=== PATIENT | male | born 1950 | race Two or more races ===

== ENCOUNTER 2021-10-11 12:28 | Inpatient (IN) | payer OTHER ==
[2021-10-11] MEDS ORDERED: SODIUM CHLORIDE 1,500 ML IV ONE (13:32)
[2021-10-11 13:45] LABS: VENOUS BASE EXCESS 12.1 mmol/L (-2-2); VENOUS O2 SATURATION 80.3 % (70-80); VENOUS PCO2 39.7 mmHg (38-52); VENOUS PH 7.566 (7.310-7.410)
[2021-10-11 13:49] LABS: HEMATOCRIT 26.6 % (35.4-49); HEMOGLOBIN 8.7 GM/dL (11.7-16.9); MCH 29.3 pg (25.7-33.7); MCHC 32.6 g/dl (32.0-35.9); MEAN CELL VOLUME 89.7 fl (80-96); MEAN PLT VOLUME 7.1 fl (7.5-11.1); PLATELET COUNT 287 10^3/uL (134-434); RBC 2.97 M/mm3 (4.00-5.60); RDW 17.9 % (11.9-15.9); WHITE BLOOD COUNT 11.3 K/mm3 (4.0-10.0)
[2021-10-11 14:06] LABS: ALBUMIN 1.7 g/dl (3.4-5.0); BLOOD UREA NITROGEN 82.1 mg/dL (7-18); CALCIUM 9.1 mg/dL (8.5-10.1)
[2021-10-11 14:09] LABS: CREATININE 4.3 mg/dL (0.55-1.3)
[2021-10-11 14:11] LABS: BILIRUBIN,TOTAL 0.4 mg/dL (0.2-1); TOT PROT 5.8 g/dl (6.4-8.2)
[2021-10-11 14:15] LABS: LACTIC ACID 4.1 mmol/L (0.4-2.0)
[2021-10-11 14:27] LABS: ANISOCYTOSIS 0; MACROCYTOSIS 0
[2021-10-11] MEDS ORDERED: RAPID SEQUENCE INTUBATION KIT NR ONE (16:29)
[2021-10-11] MEDS ORDERED: ACETAMINOPHEN INJECTION 100 ML IVPB ONE (17:11)
[2021-10-11] MEDS ORDERED: BUPIVACAINE HCL/PF 0.25% (2.5MG/ML) 10 ML VIAL ONE (17:47)
[2021-10-11] MEDS ORDERED: VANCOMYCIN 1,000 MG in DEXTROSE 5%-WATER - 250 ML IVPB ONE (17:57)
[2021-10-11] MEDS ORDERED: PIPERACILLIN/TAZOB 2.25 GM 2.25 GM in DEXTROSE 5%-WATER - 50 ML IVPB ONE ×2 (17:58→21:09)
[2021-10-11] MEDS ORDERED: PIPERACILLIN/TAZOB 2.25 GM 2.25 GM/50 ML BAG IVPB ONE (18:05)
[2021-10-11] MEDS ORDERED: VANCOMYCIN/WATER FOR INJ (PEG) 1,000 MG/200 ML BAG IVPB ONE (18:06)
[2021-10-11 18:26] LABS: PH,URINE 7.5 (5.0-8.0); URINE APPEARANCE CLEAR; URINE BILIRUBIN NEGATIVE (NEGATIVE); URINE COLOR YELLOW; URINE GLUCOSE (UA) 1+ (NEGATIVE); URINE KETONE NEGATIVE (NEGATIVE); URINE LEUK ESTERASE 1+ (NEGATIVE); URINE NITRITE NEGATIVE (NEGATIVE); URINE PROTEIN 3+ (NEGATIVE); URINE UROBILINOGEN 0.2 mg/dL (0.2-1.0)
[2021-10-11] MEDS ORDERED: ROCURONIUM BROMIDE 50 MG/5 ML SYRINGE ONE (18:29)
[2021-10-11] MEDS ORDERED: ACETAMINOPHEN 1000 MG/100 ML BAG IVPB ONE (19:48)
[2021-10-11] MEDS ORDERED: ESMOLOL HCL 100,000 MCG/10 ML VIAL ONE (20:27)
[2021-10-11] MEDS ORDERED: SODIUM CHLORIDE 1,000 ML IV SCH (21:15)
[2021-10-11] MEDS ORDERED: PIPERACILLIN/TAZOBACTAM 2.25 GM VIAL IVPB ONE (21:41)
[2021-10-11] MEDS ORDERED: DEXTROSE 5%-WATER - 50 ML IVPB ONE (21:42)
[2021-10-11] MEDS ORDERED: CHLORHEXIDINE GLUCONATE 4% CLEANSER FOR DECOLONIZATION TP SCH (22:00)
[2021-10-11] MEDS ORDERED: MUPIROCIN 2% TOPICAL OINTMENT FOR DECOLONIZATION NS SCH (22:00)
[2021-10-11 22:31] LABS: PHOSPHOROUS 1.7 mg/dL (2.5-4.9)
[2021-10-11] MEDS: MIDAZOLAM IN 0.9 % SOD.CHLORID 100 MG/100 ML PLAST..BAG IVPB SCH (22:56)
[2021-10-11] MEDS: MUPIROCIN 2% TOPICAL OINTMENT FOR DECOLONIZATION NS SCH (22:57)
[2021-10-11] MEDS: CHLORHEXIDINE GLUCONATE 4% CLEANSER FOR DECOLONIZATION TP SCH (22:57)
[2021-10-11] MEDS: ACETAMINOPHEN 1000 MG/100 ML BAG IVPB SCH (22:58)
[2021-10-11] MEDS: PANTOPRAZOLE SODIUM 40 MG VIAL IVPUSH SCH (22:58)
[2021-10-11 23:48] LABS: BLOOD UREA NITROGEN 89.3 mg/dL (7-18); CALCIUM 8.9 mg/dL (8.5-10.1)
[2021-10-11 23:49] LABS: CREATININE 4.4 mg/dL (0.55-1.3)
[2021-10-11 23:57] LABS: LACTIC ACID 4.5 mmol/L (0.4-2.0)
[2021-10-12] MEDS: SODIUM CHLORIDE 1,000 ML IV SCH (00:18)
[2021-10-12] MEDS: ACETAMINOPHEN 1000 MG/100 ML BAG IVPB SCH ×3 (04:56→17:09)
[2021-10-12 07:54] LABS: LACTIC ACID 4.6 mmol/L (0.4-2.0)
[2021-10-12 07:59] LABS: CALCIUM 8.9 mg/dL (8.5-10.1)
[2021-10-12 08:00] LABS: BLOOD UREA NITROGEN 100.8 mg/dL (7-18); MAGNESIUM 2.5 mg/dL (1.8-2.4)
[2021-10-12 08:03] LABS: CREATININE 4.5 mg/dL (0.55-1.3); PHOSPHOROUS 2.1 mg/dL (2.5-4.9)
[2021-10-12 08:24] LABS: BASO % 0.1 % (0-2.0); HEMATOCRIT 24.1 % (35.4-49); LYMPH % 13.1 % (8-40); MCH 29.6 pg (25.7-33.7); MCHC 33.3 g/dl (32.0-35.9); MEAN PLT VOLUME 7.6 fl (7.5-11.1); MONO % 1.2 % (3.8-10.2); NEUT % 85.6 % (42.8-82.8); PLATELET COUNT 196 10^3/uL (134-434); RBC 2.71 M/mm3 (4.00-5.60); RDW 18.1 % (11.9-15.9); WHITE BLOOD COUNT 5.6 K/mm3 (4.0-10.0)
[2021-10-12] MEDS ORDERED: SODIUM CHLORIDE 250 ML IV PRN (09:40)
[2021-10-12] MEDS ORDERED: HEPARIN NA (PORCINE) 5,000 UNITS/ML 1ML VIAL SQ SCH (10:00)
[2021-10-12] MEDS: KCL 10 MEQ IVPB 10 MEQ/100 ML INFUS.BAG IVPB SCH ×2 (12:48→14:31)
[2021-10-12] MEDS: MUPIROCIN 2% TOPICAL OINTMENT FOR DECOLONIZATION NS SCH ×2 (12:48→21:33)
[2021-10-12] MEDS: PANTOPRAZOLE SODIUM 40 MG VIAL IVPUSH SCH (12:49)
[2021-10-12 12:59] LABS: LACTIC ACID 3.3 mmol/L (0.4-2.0)
[2021-10-12] MEDS ORDERED: EPOETIN ALFA-EPBX 4,000 UNIT/ML VIAL IVPUSH ONE (14:00)
[2021-10-12] MEDS ORDERED: REMDESIVIR 200 MG in SODIUM CHLORIDE 250 ML IVPB ONE (14:26)
[2021-10-12] MEDS ORDERED: DEXTROSE 5%-WATER - 50 ML IVPB ONE (15:30)
[2021-10-12] MEDS ORDERED: PIPERACILLIN/TAZOBACTAM 2.25 GM VIAL IVPB ONE ×2 (15:30→17:05)
[2021-10-12] MEDS: PIPERACILLIN/TAZOB 2.25 GM 2.25 GM in DEXTROSE 5%-WATER - 50 ML IVPB SCH ×2 (16:01→17:10)
[2021-10-12] MEDS: DEXAMETHASONE SOD PHOSPHATE 10 MG/1 ML VIAL IVPUSH SCH (16:01)
[2021-10-12] MEDS ORDERED: VANCOMYCIN/WATER FOR INJ (PEG) 1,000 MG/200 ML BAG IVPB ONE (17:24)
[2021-10-12] MEDS: MIDAZOLAM IN 0.9 % SOD.CHLORID 100 MG/100 ML PLAST..BAG IVPB SCH (21:00)
[2021-10-12] MEDS: HEPARIN NA (PORCINE) 5,000 UNITS/ML 1ML VIAL SQ SCH (21:34)
[2021-10-12] MEDS: CHLORHEXIDINE GLUCONATE 4% CLEANSER FOR DECOLONIZATION TP SCH (21:34)
[2021-10-13] MEDS: SODIUM CHLORIDE 1,000 ML IV SCH (01:00)
[2021-10-13] MEDS ORDERED: PIPERACILLIN/TAZOBACTAM 2.25 GM VIAL IVPB ONE ×3 (01:02→16:18)
[2021-10-13] MEDS ORDERED: DEXTROSE 5%-WATER - 50 ML IVPB ONE ×3 (01:02→16:18)
[2021-10-13] MEDS: PIPERACILLIN/TAZOB 2.25 GM 2.25 GM in DEXTROSE 5%-WATER - 50 ML IVPB SCH ×3 (02:57→17:41)
[2021-10-13] MEDS: HEPARIN NA (PORCINE) 5,000 UNITS/ML 1ML VIAL SQ SCH ×3 (06:18→21:31)
[2021-10-13 07:23] LABS: HEMATOCRIT 27.2 % (35.4-49); HEMOGLOBIN 9.1 GM/dL (11.7-16.9); MCHC 33.4 g/dl (32.0-35.9); MEAN PLT VOLUME 7.9 fl (7.5-11.1); PLATELET COUNT 220 10^3/uL (134-434); RBC 3.02 M/mm3 (4.00-5.60); RDW 17.9 % (11.9-15.9)
[2021-10-13 07:41] LABS: CALCIUM 8.9 mg/dL (8.5-10.1)
[2021-10-13 07:42] LABS: ALBUMIN 1.8 g/dl (3.4-5.0); MAGNESIUM 2.3 mg/dL (1.8-2.4)
[2021-10-13 07:45] LABS: CREATININE 2.5 mg/dL (0.55-1.3); PHOSPHOROUS 2.7 mg/dL (2.5-4.9)
[2021-10-13 07:46] LABS: BILIRUBIN,TOTAL 0.6 mg/dL (0.2-1); TOT PROT 5.5 g/dl (6.4-8.2)
[2021-10-13 07:51] LABS: BLOOD UREA NITROGEN 52.2 mg/dL (7-18)
[2021-10-13 09:28] LABS: ANISOCYTOSIS 1+; MACROCYTOSIS 1+
[2021-10-13] MEDS: PANTOPRAZOLE SODIUM 40 MG VIAL IVPUSH SCH (10:46)
[2021-10-13] MEDS: DEXAMETHASONE SOD PHOSPHATE 10 MG/1 ML VIAL IVPUSH SCH (10:46)
[2021-10-13] MEDS ORDERED: AMINO ACIDS 4.25%/D5W 1,000 ML IV SCH (12:00)
[2021-10-13] MEDS: MUPIROCIN 2% TOPICAL OINTMENT FOR DECOLONIZATION NS SCH ×2 (12:51→21:31)
[2021-10-13] MEDS: COLLAGENASE CLOSTRIDIUM HIST. 30 GRAMS TUBE TP SCH (17:13)
[2021-10-13] MEDS ORDERED: SODIUM CHLORIDE 250 ML IV PRN (19:31)
[2021-10-13] MEDS: CHLORHEXIDINE GLUCONATE 4% CLEANSER FOR DECOLONIZATION TP SCH (21:31)
[2021-10-14] MEDS ORDERED: DEXTROSE 5%-WATER - 50 ML IVPB ONE ×3 (01:34→16:34)
[2021-10-14] MEDS ORDERED: PIPERACILLIN/TAZOBACTAM 2.25 GM VIAL IVPB ONE ×3 (01:34→16:34)
[2021-10-14] MEDS: PIPERACILLIN/TAZOB 2.25 GM 2.25 GM in DEXTROSE 5%-WATER - 50 ML IVPB SCH ×3 (01:35→17:33)
[2021-10-14] MEDS: HEPARIN NA (PORCINE) 5,000 UNITS/ML 1ML VIAL SQ SCH ×3 (06:15→21:17)
[2021-10-14 08:50] LABS: HEMATOCRIT 23.8 % (35.4-49); HEMOGLOBIN 7.7 GM/dL (11.7-16.9); MCH 28.9 pg (25.7-33.7); MCHC 32.3 g/dl (32.0-35.9); MEAN CELL VOLUME 89.3 fl (80-96); MEAN PLT VOLUME 8.1 fl (7.5-11.1); PLATELET COUNT 248 10^3/uL (134-434); RBC 2.67 M/mm3 (4.00-5.60); RDW 18.5 % (11.9-15.9); WHITE BLOOD COUNT 16.5 K/mm3 (4.0-10.0)
[2021-10-14 09:18] LABS: CALCIUM 8.6 mg/dL (8.5-10.1)
[2021-10-14 09:19] LABS: ALBUMIN 1.7 g/dl (3.4-5.0); MAGNESIUM 2.4 mg/dL (1.8-2.4)
[2021-10-14 09:22] LABS: CREATININE 3.2 mg/dL (0.55-1.3); PHOSPHOROUS 3.3 mg/dL (2.5-4.9)
[2021-10-14 09:23] LABS: BILIRUBIN,TOTAL 0.4 mg/dL (0.2-1); TOT PROT 5.1 g/dl (6.4-8.2)
[2021-10-14] MEDS ORDERED: CASPOFUNGIN ACETATE 70 MG in SODIUM CHLORIDE 250 ML IVPB ONE (09:29)
[2021-10-14 09:34] LABS: BLOOD UREA NITROGEN 78.6 mg/dL (7-18)
[2021-10-14] MEDS: COLLAGENASE CLOSTRIDIUM HIST. 30 GRAMS TUBE TP SCH (12:08)
[2021-10-14] MEDS: MUPIROCIN 2% TOPICAL OINTMENT FOR DECOLONIZATION NS SCH ×2 (12:09→21:18)
[2021-10-14] MEDS: DEXAMETHASONE SOD PHOSPHATE 10 MG/1 ML VIAL IVPUSH SCH (12:10)
[2021-10-14] MEDS: PANTOPRAZOLE SODIUM 40 MG VIAL IVPUSH SCH (12:10)
[2021-10-14 12:28] LABS: ANISOCYTOSIS 2+; MACROCYTOSIS 2+; OVALOCYTE 2+; TARGET CELLS 2+
[2021-10-14] MEDS ORDERED: REMDESIVIR 100 MG in SODIUM CHLORIDE 250 ML IVPB SCH (15:00)
[2021-10-14] MEDS: PROPOFOL 1,000,000 MCG/100 ML VIAL IVPB SCH (16:00)
[2021-10-14] MEDS: REMDESIVIR 100 MG in SODIUM CHLORIDE 250 ML IVPB SCH (17:32)
[2021-10-14] MEDS: CHLORHEXIDINE GLUCONATE 4% CLEANSER FOR DECOLONIZATION TP SCH (21:18)
[2021-10-14] MEDS ORDERED: FAT EMULSION/OLIVE/SOY (CLINOLIPID) 250 ML EMULSION IV SCH (22:00)
[2021-10-15] MEDS ORDERED: PIPERACILLIN/TAZOBACTAM 2.25 GM VIAL IVPB ONE ×3 (00:01→17:36)
[2021-10-15] MEDS ORDERED: DEXTROSE 5%-WATER - 50 ML IVPB ONE ×3 (00:01→17:36)
[2021-10-15] MEDS: PIPERACILLIN/TAZOB 2.25 GM 2.25 GM in DEXTROSE 5%-WATER - 50 ML IVPB SCH ×3 (01:27→17:40)
[2021-10-15] MEDS: HEPARIN NA (PORCINE) 5,000 UNITS/ML 1ML VIAL SQ SCH ×3 (07:04→21:04)
[2021-10-15 07:54] LABS: HEMATOCRIT 21.2 % (35.4-49); MCH 28.9 pg (25.7-33.7); MCHC 32.9 g/dl (32.0-35.9); MEAN CELL VOLUME 87.9 fl (80-96); MEAN PLT VOLUME 7.6 fl (7.5-11.1); PLATELET COUNT 194 10^3/uL (134-434); RBC 2.41 M/mm3 (4.00-5.60); RDW 17.8 % (11.9-15.9); WHITE BLOOD COUNT 18.2 K/mm3 (4.0-10.0)
[2021-10-15 08:06] LABS: CALCIUM 8.7 mg/dL (8.5-10.1)
[2021-10-15 08:07] LABS: ALBUMIN 1.6 g/dl (3.4-5.0); MAGNESIUM 2.1 mg/dL (1.8-2.4)
[2021-10-15 08:10] LABS: CREATININE 2.2 mg/dL (0.55-1.3); PHOSPHOROUS 2.4 mg/dL (2.5-4.9)
[2021-10-15 08:11] LABS: TOT PROT 4.8 g/dl (6.4-8.2)
[2021-10-15 08:12] LABS: BILIRUBIN,TOTAL 0.5 mg/dL (0.2-1)
[2021-10-15 08:16] LABS: BLOOD UREA NITROGEN 52.6 mg/dL (7-18)
[2021-10-15 08:56] LABS: ANISOCYTOSIS 0; MACROCYTOSIS 0
[2021-10-15] MEDS: PANTOPRAZOLE SODIUM 40 MG VIAL IVPUSH SCH (09:53)
[2021-10-15] MEDS: MUPIROCIN 2% TOPICAL OINTMENT FOR DECOLONIZATION NS SCH ×2 (09:55→21:04)
[2021-10-15] MEDS: COLLAGENASE CLOSTRIDIUM HIST. 30 GRAMS TUBE TP SCH (09:55)
[2021-10-15] MEDS: CASPOFUNGIN ACETATE 50 MG in SODIUM CHLORIDE 250 ML IVPB SCH (13:50)
[2021-10-15] MEDS: REMDESIVIR 100 MG in SODIUM CHLORIDE 250 ML IVPB SCH (17:41)
[2021-10-15] MEDS: METOPROLOL TARTRATE 5 MG/5 ML VIAL IVPUSH PRN (17:46)
[2021-10-15] MEDS ORDERED: POTASSIUM CHLORIDE ORAL LIQUID 20 MEQ/15 ML PO ONE (20:34)
[2021-10-15] MEDS: KCL 10 MEQ IVPB 10 MEQ/100 ML INFUS.BAG IVPB SCH ×3 (21:01→22:30)
[2021-10-15] MEDS: CHLORHEXIDINE GLUCONATE 4% CLEANSER FOR DECOLONIZATION TP SCH (21:04)
[2021-10-16] MEDS ORDERED: DEXTROSE 5%-WATER - 50 ML IVPB ONE ×3 (00:08→17:54)
[2021-10-16] MEDS ORDERED: PIPERACILLIN/TAZOBACTAM 2.25 GM VIAL IVPB ONE ×3 (00:08→17:54)
[2021-10-16] MEDS: PIPERACILLIN/TAZOB 2.25 GM 2.25 GM in DEXTROSE 5%-WATER - 50 ML IVPB SCH ×3 (01:19→19:27)
[2021-10-16] MEDS: PROPOFOL 1,000,000 MCG/100 ML VIAL IVPB SCH (03:00)
[2021-10-16] MEDS: HEPARIN NA (PORCINE) 5,000 UNITS/ML 1ML VIAL SQ SCH ×3 (06:00→21:45)
[2021-10-16 08:03] LABS: HEMATOCRIT 20.1 % (35.4-49); MCH 29.3 pg (25.7-33.7); MCHC 33.1 g/dl (32.0-35.9); MEAN CELL VOLUME 88.5 fl (80-96); MEAN PLT VOLUME 7.8 fl (7.5-11.1); PLATELET COUNT 165 10^3/uL (134-434); RBC 2.27 M/mm3 (4.00-5.60); RDW 17.8 % (11.9-15.9); WHITE BLOOD COUNT 13.8 K/mm3 (4.0-10.0)
[2021-10-16 08:22] LABS: ALBUMIN 1.4 g/dl (3.4-5.0); BLOOD UREA NITROGEN 63.7 mg/dL (7-18); CALCIUM 8.2 mg/dL (8.5-10.1)
[2021-10-16 08:23] LABS: MAGNESIUM 1.9 mg/dL (1.8-2.4)
[2021-10-16 08:25] LABS: PHOSPHOROUS 2.2 mg/dL (2.5-4.9)
[2021-10-16 08:26] LABS: BILIRUBIN,TOTAL 0.4 mg/dL (0.2-1); TOT PROT 4.6 g/dl (6.4-8.2)
[2021-10-16 08:38] LABS: HEMOGLOBIN 6.6 GM/dL (11.7-16.9)
[2021-10-16] MEDS: PANTOPRAZOLE SODIUM 40 MG VIAL IVPUSH SCH (09:27)
[2021-10-16] MEDS: COLLAGENASE CLOSTRIDIUM HIST. 30 GRAMS TUBE TP SCH (09:28)
[2021-10-16] MEDS: MUPIROCIN 2% TOPICAL OINTMENT FOR DECOLONIZATION NS SCH (09:28)
[2021-10-16 10:57] LABS: ANISOCYTOSIS 2+; MACROCYTOSIS 0
[2021-10-16] MEDS: CASPOFUNGIN ACETATE 50 MG in SODIUM CHLORIDE 250 ML IVPB SCH (14:35)
[2021-10-16] MEDS: METOPROLOL TARTRATE 5 MG/5 ML VIAL IVPUSH PRN (16:04)
[2021-10-16] MEDS: REMDESIVIR 100 MG in SODIUM CHLORIDE 250 ML IVPB SCH (19:26)
[2021-10-16] MEDS: CHLORHEXIDINE GLUCONATE 4% CLEANSER FOR DECOLONIZATION TP SCH (21:43)
[2021-10-17] MEDS ORDERED: DEXTROSE 5%-WATER - 50 ML IVPB ONE ×3 (01:04→17:04)
[2021-10-17] MEDS ORDERED: PIPERACILLIN/TAZOBACTAM 2.25 GM VIAL IVPB ONE ×3 (01:04→17:03)
[2021-10-17] MEDS: PIPERACILLIN/TAZOB 2.25 GM 2.25 GM in DEXTROSE 5%-WATER - 50 ML IVPB SCH ×3 (01:10→17:59)
[2021-10-17] MEDS: HEPARIN NA (PORCINE) 5,000 UNITS/ML 1ML VIAL SQ SCH ×3 (05:57→22:16)
[2021-10-17 09:19] LABS: HEMATOCRIT 35.4 % (35.4-49); HEMOGLOBIN 12.2 GM/dL (11.7-16.9); MCH 29.2 pg (25.7-33.7); MCHC 34.3 g/dl (32.0-35.9); MEAN CELL VOLUME 85.1 fl (80-96); MEAN PLT VOLUME 7.8 fl (7.5-11.1); PLATELET COUNT 159 10^3/uL (134-434); RBC 4.16 M/mm3 (4.00-5.60); RDW 16.2 % (11.9-15.9); WHITE BLOOD COUNT 16.7 K/mm3 (4.0-10.0)
[2021-10-17 10:01] LABS: ALBUMIN 1.6 g/dl (3.4-5.0)
[2021-10-17 10:03] LABS: CALCIUM 9.3 mg/dL (8.5-10.1)
[2021-10-17 10:07] LABS: CREATININE 3.6 mg/dL (0.55-1.3)
[2021-10-17 10:09] LABS: BILIRUBIN,TOTAL 0.5 mg/dL (0.2-1); TOT PROT 5.1 g/dl (6.4-8.2)
[2021-10-17] MEDS: PANTOPRAZOLE SODIUM 40 MG VIAL IVPUSH SCH (10:45)
[2021-10-17] MEDS: COLLAGENASE CLOSTRIDIUM HIST. 30 GRAMS TUBE TP SCH (10:46)
[2021-10-17] MEDS: PROPOFOL 1,000,000 MCG/100 ML VIAL IVPB SCH (13:50)
[2021-10-17] MEDS: CASPOFUNGIN ACETATE 50 MG in SODIUM CHLORIDE 250 ML IVPB SCH (13:52)
[2021-10-17] MEDS: REMDESIVIR 100 MG in SODIUM CHLORIDE 250 ML IVPB SCH (17:59)
[2021-10-17] MEDS: CHLORHEXIDINE GLUCONATE 4% CLEANSER FOR DECOLONIZATION TP SCH (22:16)
[2021-10-18] MEDS ORDERED: DEXTROSE 5%-WATER - 50 ML IVPB ONE ×3 (02:14→18:00)
[2021-10-18] MEDS ORDERED: PIPERACILLIN/TAZOBACTAM 2.25 GM VIAL IVPB ONE ×3 (02:14→18:00)
[2021-10-18] MEDS: PIPERACILLIN/TAZOB 2.25 GM 2.25 GM in DEXTROSE 5%-WATER - 50 ML IVPB SCH ×3 (02:39→18:05)
[2021-10-18] MEDS: METOPROLOL TARTRATE 5 MG/5 ML VIAL IVPUSH PRN ×2 (02:39→16:30)
[2021-10-18] MEDS: HEPARIN NA (PORCINE) 5,000 UNITS/ML 1ML VIAL SQ SCH ×3 (06:30→21:06)
[2021-10-18 09:16] LABS: HEMATOCRIT 34.1 % (35.4-49); HEMOGLOBIN 11.5 GM/dL (11.7-16.9); MCHC 33.8 g/dl (32.0-35.9); MEAN CELL VOLUME 85.8 fl (80-96); MEAN PLT VOLUME 8.4 fl (7.5-11.1); PLATELET COUNT 172 10^3/uL (134-434); RBC 3.97 M/mm3 (4.00-5.60); RDW 16.2 % (11.9-15.9)
[2021-10-18] MEDS: COLLAGENASE CLOSTRIDIUM HIST. 30 GRAMS TUBE TP SCH (09:34)
[2021-10-18] MEDS: PANTOPRAZOLE SODIUM 40 MG VIAL IVPUSH SCH (09:34)
[2021-10-18 09:36] LABS: CALCIUM 9.4 mg/dL (8.5-10.1)
[2021-10-18 09:37] LABS: ALBUMIN 1.5 g/dl (3.4-5.0); BLOOD UREA NITROGEN 78.1 mg/dL (7-18); MAGNESIUM 2.2 mg/dL (1.8-2.4)
[2021-10-18 09:40] LABS: CREATININE 4.2 mg/dL (0.55-1.3); PHOSPHOROUS 4.4 mg/dL (2.5-4.9)
[2021-10-18 09:41] LABS: BILIRUBIN,TOTAL 0.4 mg/dL (0.2-1)
[2021-10-18 09:53] LABS: ANISOCYTOSIS 0; MACROCYTOSIS 0
[2021-10-18] MEDS: CASPOFUNGIN ACETATE 50 MG in SODIUM CHLORIDE 250 ML IVPB SCH (14:45)
[2021-10-18] MEDS: CHLORHEXIDINE GLUCONATE 4% CLEANSER FOR DECOLONIZATION TP SCH (21:07)
[2021-10-19] MEDS ORDERED: PIPERACILLIN/TAZOBACTAM 2.25 GM VIAL IVPB ONE ×2 (01:40→10:29)
[2021-10-19] MEDS ORDERED: DEXTROSE 5%-WATER - 50 ML IVPB ONE ×2 (01:41→10:29)
[2021-10-19] MEDS: PIPERACILLIN/TAZOB 2.25 GM 2.25 GM in DEXTROSE 5%-WATER - 50 ML IVPB SCH ×3 (01:55→18:25)
[2021-10-19] MEDS: METOPROLOL TARTRATE 5 MG/5 ML VIAL IVPUSH PRN (04:05)
[2021-10-19] MEDS: HEPARIN NA (PORCINE) 5,000 UNITS/ML 1ML VIAL SQ SCH ×3 (06:38→21:33)
[2021-10-19] MEDS: PANTOPRAZOLE SODIUM 40 MG VIAL IVPUSH SCH (10:24)
[2021-10-19] MEDS: COLLAGENASE CLOSTRIDIUM HIST. 30 GRAMS TUBE TP SCH (10:24)
[2021-10-19 11:34] LABS: HEMATOCRIT 34.9 % (35.4-49); HEMOGLOBIN 11.5 GM/dL (11.7-16.9); MCH 28.6 pg (25.7-33.7); MCHC 32.8 g/dl (32.0-35.9); MEAN CELL VOLUME 87.1 fl (80-96); MEAN PLT VOLUME 8.7 fl (7.5-11.1); PLATELET COUNT 177 10^3/uL (134-434); RBC 4.01 M/mm3 (4.00-5.60); WHITE BLOOD COUNT 23.8 K/mm3 (4.0-10.0)
[2021-10-19 12:00] LABS: CALCIUM 9.3 mg/dL (8.5-10.1)
[2021-10-19 12:01] LABS: ALBUMIN 1.5 g/dl (3.4-5.0); BLOOD UREA NITROGEN 94.3 mg/dL (7-18); MAGNESIUM 2.3 mg/dL (1.8-2.4)
[2021-10-19 12:04] LABS: CREATININE 4.5 mg/dL (0.55-1.3); PHOSPHOROUS 4.9 mg/dL (2.5-4.9)
[2021-10-19 12:06] LABS: BILIRUBIN,TOTAL 0.5 mg/dL (0.2-1); TOT PROT 5.2 g/dl (6.4-8.2)
[2021-10-19 12:13] LABS: ANISOCYTOSIS 0; HELMET CELLS 0; HOWELL-JOLLY BODIES 0; MACROCYTOSIS 0; OVALOCYTE 0; ROULEAU 0; SICKELED CELLS 0; TARGET CELLS 0; TEAR DROP CELLS 0; TOXIC GRANULATION 0
[2021-10-19] MEDS: CASPOFUNGIN ACETATE 50 MG in SODIUM CHLORIDE 250 ML IVPB SCH (14:00)
[2021-10-19] MEDS ORDERED: ALBUTEROL SO4 0.083% IH SOL 2.5 MG/3 ML VIAL.NEB. NEB PRN (14:35)
[2021-10-19] MEDS ORDERED: ACETYLCYSTEINE 20% 200MG/ML 30 ML VIAL *FOR ORAL / INH USE ONLY NEB SCH (16:00)
[2021-10-19] MEDS ORDERED: SODIUM CHLORIDE 250 ML IV PRN (16:42)
[2021-10-19] MEDS ORDERED: EPOETIN ALFA-EPBX 4,000 UNIT/ML VIAL SQ ONE (16:45)
[2021-10-19] MEDS ORDERED: EPOETIN ALFA-EPBX 4,000 UNIT/ML VIAL IVPUSH ONE (16:45)
[2021-10-19] MEDS ORDERED: METOPROLOL TARTRATE 5 MG/5 ML VIAL IVPUSH PRN (20:16)
[2021-10-19] MEDS ORDERED: CHLORHEXIDINE GLUCONATE 4% CLEANSER FOR DECOLONIZATION TP SCH (22:00)
[2021-10-19] MEDS ORDERED: METOPROLOL TARTRATE 5 MG/5 ML VIAL IVPUSH ONE (23:15)
[2021-10-20] MEDS: PIPERACILLIN/TAZOB 2.25 GM 2.25 GM in DEXTROSE 5%-WATER - 50 ML IVPB SCH ×3 (01:07→17:45)
[2021-10-20] MEDS: HEPARIN NA (PORCINE) 5,000 UNITS/ML 1ML VIAL SQ SCH ×3 (05:50→21:37)
[2021-10-20 07:51] LABS: HEMATOCRIT 32.2 % (35.4-49); HEMOGLOBIN 10.9 GM/dL (11.7-16.9); MCH 29.2 pg (25.7-33.7); MEAN CELL VOLUME 85.8 fl (80-96); MEAN PLT VOLUME 8.4 fl (7.5-11.1); PLATELET COUNT 157 10^3/uL (134-434); RBC 3.75 M/mm3 (4.00-5.60); RDW 16.9 % (11.9-15.9); WHITE BLOOD COUNT 24.9 K/mm3 (4.0-10.0)
[2021-10-20 07:52] LABS: ADD RBC MORPHOLOGY NO
[2021-10-20 08:09] LABS: BLOOD UREA NITROGEN 93.8 mg/dL (7-18)
[2021-10-20 08:10] LABS: ALBUMIN 1.5 g/dl (3.4-5.0); CALCIUM 8.8 mg/dL (8.5-10.1); MAGNESIUM 2.1 mg/dL (1.8-2.4)
[2021-10-20 08:12] LABS: CREATININE 4.4 mg/dL (0.55-1.3); PHOSPHOROUS 4.6 mg/dL (2.5-4.9)
[2021-10-20 08:14] LABS: BILIRUBIN,TOTAL 0.6 mg/dL (0.2-1); TOT PROT 5.3 g/dl (6.4-8.2)
[2021-10-20] MEDS ORDERED: LABETALOL HCL 5 MG/1 ML (100MG/20 ML VIAL) IVPUSH ONE (09:10)
[2021-10-20 09:15] LABS: ANISOCYTOSIS 0; HELMET CELLS 0; HOWELL-JOLLY BODIES 0; MACROCYTOSIS 0; OVALOCYTE 0; ROULEAU 0; SICKELED CELLS 0; TARGET CELLS 0; TEAR DROP CELLS 0; TOXIC GRANULATION 0
[2021-10-20] MEDS ORDERED: amLODIPine BESYLATE 5 MG TABLET (FP) PO SCH (10:00)
[2021-10-20] MEDS ORDERED: LISINOPRIL 5 MG TABLET PO SCH (10:00)
[2021-10-20] MEDS ORDERED: PANTOPRAZOLE SODIUM 40 MG VIAL IVPUSH SCH (10:00)
[2021-10-20] MEDS ORDERED: COLLAGENASE CLOSTRIDIUM HIST. 30 GRAMS TUBE TP SCH (10:00)
[2021-10-20] MEDS ORDERED: POTASSIUM CHLORIDE ORAL LIQUID 20 MEQ/15 ML PO ONE (10:19)
[2021-10-20] MEDS ORDERED: CASPOFUNGIN ACETATE 50 MG in SODIUM CHLORIDE 250 ML IVPB SCH (13:30)
[2021-10-20] MEDS ORDERED: SODIUM CHLORIDE 250 ML IV PRN (14:39)
[2021-10-20] MEDS ORDERED: EPOETIN ALFA-EPBX 4,000 UNIT/ML VIAL SQ ONE ×2 (14:39→17:55)
[2021-10-20] MEDS ORDERED: FENTANYL NS IVPB 500 MCG/100 ML BAG IVPB ONE ×2 (16:35→22:06)
[2021-10-20] MEDS ORDERED: FENTANYL IVPB 500 MCG/100 ML BAG IVPB SCH (16:45)
[2021-10-20] MEDS: FENTANYL IVPB 500 MCG/100 ML BAG IVPB SCH ×2 (17:55→22:00)
[2021-10-20] MEDS ORDERED: PROPOFOL 200 MG/20 ML VIAL IVPUSH ONE (19:03)
[2021-10-20] MEDS ORDERED: PROPOFOL 1,000,000 MCG/100 ML VIAL IVPB SCH (19:15)
[2021-10-20] MEDS: MUPIROCIN 2% TOPICAL OINTMENT FOR DECOLONIZATION NS SCH (21:35)
[2021-10-20] MEDS: CHLORHEXIDINE GLUCONATE 4% CLEANSER FOR DECOLONIZATION TP SCH (21:36)
[2021-10-20] MEDS ORDERED: CHLORHEXIDINE GLUCONATE 4% CLEANSER FOR DECOLONIZATION TP SCH (22:00)
[2021-10-21] MEDS: PIPERACILLIN/TAZOB 2.25 GM 2.25 GM in DEXTROSE 5%-WATER - 50 ML IVPB SCH ×3 (01:17→17:38)
[2021-10-21] MEDS ORDERED: FENTANYL NS IVPB 500 MCG/100 ML BAG IVPB ONE (04:56)
[2021-10-21] MEDS: HEPARIN NA (PORCINE) 5,000 UNITS/ML 1ML VIAL SQ SCH ×3 (06:00→21:30)
[2021-10-21 07:58] LABS: HEMATOCRIT 28.3 % (35.4-49); HEMOGLOBIN 9.5 GM/dL (11.7-16.9); MCH 28.8 pg (25.7-33.7); MCHC 33.6 g/dl (32.0-35.9); MEAN CELL VOLUME 85.6 fl (80-96); MEAN PLT VOLUME 8.1 fl (7.5-11.1); PLATELET COUNT 108 10^3/uL (134-434); RBC 3.31 M/mm3 (4.00-5.60); RDW 17.2 % (11.9-15.9); WHITE BLOOD COUNT 25.7 K/mm3 (4.0-10.0)
[2021-10-21 08:24] LABS: BLOOD UREA NITROGEN 93.4 mg/dL (7-18)
[2021-10-21 08:28] LABS: CREATININE 4.6 mg/dL (0.55-1.3); PHOSPHOROUS 4.6 mg/dL (2.5-4.9)
[2021-10-21 08:29] LABS: BILIRUBIN,TOTAL 0.5 mg/dL (0.2-1); CALCIUM 8.9 mg/dL (8.5-10.1); TOT PROT 4.2 g/dl (6.4-8.2)
[2021-10-21 08:30] LABS: MAGNESIUM 2.1 mg/dL (1.8-2.4)
[2021-10-21 08:35] LABS: ALBUMIN 1.2 g/dl (3.4-5.0)
[2021-10-21 09:04] LABS: ANISOCYTOSIS 0; HELMET CELLS 0; HOWELL-JOLLY BODIES 0; MACROCYTOSIS 0; OVALOCYTE 0; ROULEAU 0; SICKELED CELLS 0; TARGET CELLS 0; TEAR DROP CELLS 0; TOXIC GRANULATION 0
[2021-10-21] MEDS: amLODIPine BESYLATE 5 MG TABLET (FP) PO SCH (10:08)
[2021-10-21] MEDS: PANTOPRAZOLE SODIUM 40 MG VIAL IVPUSH SCH (10:08)
[2021-10-21] MEDS: MUPIROCIN 2% TOPICAL OINTMENT FOR DECOLONIZATION NS SCH ×2 (10:23→21:30)
[2021-10-21] MEDS: COLLAGENASE CLOSTRIDIUM HIST. 30 GRAMS TUBE TP SCH (13:29)
[2021-10-21] MEDS: CASPOFUNGIN ACETATE 50 MG in SODIUM CHLORIDE 250 ML IVPB SCH (13:41)
[2021-10-21] MEDS: MIDAZOLAM IN 0.9 % SOD.CHLORID 100 MG/100 ML PLAST..BAG IVPB SCH (17:40)
[2021-10-21] MEDS: CHLORHEXIDINE GLUCONATE 4% CLEANSER FOR DECOLONIZATION TP SCH (21:30)
[2021-10-22] MEDS: PIPERACILLIN/TAZOB 2.25 GM 2.25 GM in DEXTROSE 5%-WATER - 50 ML IVPB SCH ×3 (01:38→18:02)
[2021-10-22] MEDS: HEPARIN NA (PORCINE) 5,000 UNITS/ML 1ML VIAL SQ SCH ×3 (06:22→21:25)
[2021-10-22 08:09] LABS: HEMOGLOBIN 8.9 GM/dL (11.7-16.9); MCH 29.1 pg (25.7-33.7); MCHC 34.1 g/dl (32.0-35.9); MEAN CELL VOLUME 85.3 fl (80-96); PLATELET COUNT 78 10^3/uL (134-434); RBC 3.05 M/mm3 (4.00-5.60); RDW 16.9 % (11.9-15.9); WHITE BLOOD COUNT 26.7 K/mm3 (4.0-10.0)
[2021-10-22 08:35] LABS: CALCIUM 8.7 mg/dL (8.5-10.1)
[2021-10-22 08:36] LABS: MAGNESIUM 1.8 mg/dL (1.8-2.4)
[2021-10-22 08:38] LABS: PHOSPHOROUS 2.9 mg/dL (2.5-4.9)
[2021-10-22 08:39] LABS: BILIRUBIN,TOTAL 0.6 mg/dL (0.2-1); TOT PROT 4.7 g/dl (6.4-8.2)
[2021-10-22 08:44] LABS: ALBUMIN 1.6 g/dl (3.4-5.0)
[2021-10-22 09:08] LABS: ANISOCYTOSIS 1+; MACROCYTOSIS 1+; OVALOCYTE 1+; TARGET CELLS 2+; TEAR DROP CELLS 1+
[2021-10-22] MEDS: amLODIPine BESYLATE 5 MG TABLET (FP) PO SCH (09:52)
[2021-10-22] MEDS: MUPIROCIN 2% TOPICAL OINTMENT FOR DECOLONIZATION NS SCH ×2 (09:52→21:25)
[2021-10-22] MEDS: COLLAGENASE CLOSTRIDIUM HIST. 30 GRAMS TUBE TP SCH (09:53)
[2021-10-22] MEDS: PANTOPRAZOLE SODIUM 40 MG VIAL IVPUSH SCH (09:53)
[2021-10-22] MEDS: CASPOFUNGIN ACETATE 50 MG in SODIUM CHLORIDE 250 ML IVPB SCH (15:19)
[2021-10-22 16:01] VITALS: BMI 15.0
[2021-10-22] MEDS: MIDAZOLAM IN 0.9 % SOD.CHLORID 100 MG/100 ML PLAST..BAG IVPB SCH (21:25)
[2021-10-22] MEDS: CHLORHEXIDINE GLUCONATE 4% CLEANSER FOR DECOLONIZATION TP SCH (21:25)
[2021-10-23] MEDS: PIPERACILLIN/TAZOB 2.25 GM 2.25 GM in DEXTROSE 5%-WATER - 50 ML IVPB SCH ×3 (01:02→17:28)
[2021-10-23] MEDS: HEPARIN NA (PORCINE) 5,000 UNITS/ML 1ML VIAL SQ SCH ×3 (05:58→21:31)
[2021-10-23] MEDS: PANTOPRAZOLE SODIUM 40 MG VIAL IVPUSH SCH (09:19)
[2021-10-23] MEDS: AMINO ACIDS/PROTEIN HYDROLYS 30 ML LIQUID.PKT PO SCH (09:19)
[2021-10-23] MEDS: amLODIPine BESYLATE 5 MG TABLET (FP) PO SCH (09:19)
[2021-10-23] MEDS: MUPIROCIN 2% TOPICAL OINTMENT FOR DECOLONIZATION NS SCH ×2 (09:20→21:31)
[2021-10-23] MEDS: COLLAGENASE CLOSTRIDIUM HIST. 30 GRAMS TUBE TP SCH (09:20)
[2021-10-23] MEDS ORDERED: EPOETIN ALFA-EPBX 4,000 UNIT/ML VIAL SQ ONE (09:53)
[2021-10-23 13:30] LABS: ARTERIAL BLD GAS O2 SATURATION 99.5 % (95-98); ARTERIAL BLOOD GAS BASE EXCESS 0.4 mmol/L (-2-2); ARTERIAL BLOOD GAS PO2 195.5 mmHg (80-100)
[2021-10-23] MEDS ORDERED: EPOETIN ALFA-EPBX 4,000 UNIT/ML VIAL IVPUSH ONE (13:30)
[2021-10-23] MEDS ORDERED: SODIUM CHLORIDE 250 ML IV PRN (13:30)
[2021-10-23 13:31] LABS: ALLENS TEST POSITIVE; VENT MODE AC; VENT RATE 18
[2021-10-23 14:47] LABS: BASO % 0.3 % (0-2.0); EOS % 1.6 % (0-4.5); HEMATOCRIT 26.9 % (35.4-49); HEMOGLOBIN 8.8 GM/dL (11.7-16.9); LYMPH % 4.2 % (8-40); MCHC 32.9 g/dl (32.0-35.9); MEAN CELL VOLUME 85.2 fl (80-96); MEAN PLT VOLUME 9.6 fl (7.5-11.1); MONO % 1.4 % (3.8-10.2); NEUT % 92.5 % (42.8-82.8); PLATELET COUNT 58 10^3/uL (134-434); RBC 3.15 M/mm3 (4.00-5.60); RDW 16.7 % (11.9-15.9); WHITE BLOOD COUNT 16.4 K/mm3 (4.0-10.0)
[2021-10-23 14:59] LABS: CHLORIDE 104 mmol/L (98-107); SODIUM 144 mmol/L (136-145)
[2021-10-23 15:01] LABS: CALCIUM 8.9 mg/dL (8.5-10.1)
[2021-10-23 15:02] LABS: BLOOD UREA NITROGEN 60.8 mg/dL (7-18); CO2 27 mmol/L (21-32); GLUCOSE,RANDOM 158 mg/dL (74-106)
[2021-10-23 15:05] LABS: CREATININE 3.4 mg/dL (0.55-1.3)
[2021-10-23 15:08] LABS: ANION GAP 13 MMOL/L (8-16)
[2021-10-23] MEDS ORDERED: POTASSIUM CHLORIDE 20 MEQ PREMIX IVPB 100 ML IVPB ONE (15:18)
[2021-10-23 15:50] LABS: ANISOCYTOSIS 1+; MACROCYTOSIS 0; OVALOCYTE 1+
[2021-10-23] MEDS: CASPOFUNGIN ACETATE 50 MG in SODIUM CHLORIDE 250 ML IVPB SCH (16:01)
[2021-10-23] MEDS: CHLORHEXIDINE GLUCONATE 4% CLEANSER FOR DECOLONIZATION TP SCH (21:31)
[2021-10-23] MEDS: MIDAZOLAM IN 0.9 % SOD.CHLORID 100 MG/100 ML PLAST..BAG IVPB SCH (21:37)
[2021-10-24] MEDS: HEPARIN NA (PORCINE) 5,000 UNITS/ML 1ML VIAL SQ SCH ×3 (05:43→21:26)
[2021-10-24 08:10] LABS: HEMATOCRIT 26.6 % (35.4-49); HEMOGLOBIN 8.6 GM/dL (11.7-16.9); MCH 28.1 pg (25.7-33.7); MCHC 32.5 g/dl (32.0-35.9); MEAN CELL VOLUME 86.5 fl (80-96); MEAN PLT VOLUME 10.5 fl (7.5-11.1); PLATELET COUNT 64 10^3/uL (134-434); RBC 3.08 M/mm3 (4.00-5.60); RDW 16.9 % (11.9-15.9); WHITE BLOOD COUNT 17.5 K/mm3 (4.0-10.0)
[2021-10-24 08:27] LABS: CALCIUM 8.9 mg/dL (8.5-10.1)
[2021-10-24 08:28] LABS: ALBUMIN 1.4 g/dl (3.4-5.0); BLOOD UREA NITROGEN 50.1 mg/dL (7-18); MAGNESIUM 1.9 mg/dL (1.8-2.4)
[2021-10-24 08:31] LABS: CREATININE 2.8 mg/dL (0.55-1.3); PHOSPHOROUS 2.9 mg/dL (2.5-4.9)
[2021-10-24 08:32] LABS: BILIRUBIN,TOTAL 0.4 mg/dL (0.2-1); TOT PROT 4.8 g/dl (6.4-8.2)
[2021-10-24 10:20] LABS: ANISOCYTOSIS 2+; MACROCYTOSIS 1+; TARGET CELLS 1+
[2021-10-24] MEDS: PIPERACILLIN/TAZOB 2.25 GM 2.25 GM in DEXTROSE 5%-WATER - 50 ML IVPB SCH ×2 (10:35→17:52)
[2021-10-24] MEDS: AMINO ACIDS/PROTEIN HYDROLYS 30 ML LIQUID.PKT PO SCH (10:35)
[2021-10-24] MEDS: MUPIROCIN 2% TOPICAL OINTMENT FOR DECOLONIZATION NS SCH ×2 (10:35→21:27)
[2021-10-24] MEDS: PANTOPRAZOLE SODIUM 40 MG VIAL IVPUSH SCH (10:36)
[2021-10-24] MEDS: amLODIPine BESYLATE 5 MG TABLET (FP) PO SCH (10:36)
[2021-10-24] MEDS: COLLAGENASE CLOSTRIDIUM HIST. 30 GRAMS TUBE TP SCH (10:36)
[2021-10-24] MEDS ORDERED: POTASSIUM CHLORIDE TABS 20 MEQ TABLET.ER (FP) PO ONE (11:50)
[2021-10-24] MEDS: CASPOFUNGIN ACETATE 50 MG in SODIUM CHLORIDE 250 ML IVPB SCH (12:56)
[2021-10-24] MEDS: MIDAZOLAM IN 0.9 % SOD.CHLORID 100 MG/100 ML PLAST..BAG IVPB SCH (15:48)
[2021-10-24] MEDS: CHLORHEXIDINE GLUCONATE 4% CLEANSER FOR DECOLONIZATION TP SCH (21:27)
[2021-10-25] MEDS: PIPERACILLIN/TAZOB 2.25 GM 2.25 GM in DEXTROSE 5%-WATER - 50 ML IVPB SCH ×3 (02:03→18:11)
[2021-10-25] MEDS: HEPARIN NA (PORCINE) 5,000 UNITS/ML 1ML VIAL SQ SCH ×3 (05:37→21:39)
[2021-10-25 06:40] LABS: ARTERIAL BLOOD GAS BASE EXCESS 2.6 mmol/L (-2-2); ARTERIAL BLOOD GAS PO2 141.1 mmHg (80-100); ARTERIAL BLOOD GAS pH 7.502 (7.350-7.450)
[2021-10-25 06:49] LABS: VENT MODE V-A/C
[2021-10-25 06:50] LABS: VENT RATE 16
[2021-10-25 07:00] LABS: HEMATOCRIT 23.6 % (35.4-49); HEMOGLOBIN 7.8 GM/dL (11.7-16.9); MCH 28.4 pg (25.7-33.7); MCHC 33.1 g/dl (32.0-35.9); MEAN CELL VOLUME 85.8 fl (80-96); MEAN PLT VOLUME 9.7 fl (7.5-11.1); PLATELET COUNT 72 10^3/uL (134-434); RBC 2.75 M/mm3 (4.00-5.60); RDW 16.8 % (11.9-15.9); WHITE BLOOD COUNT 17.2 K/mm3 (4.0-10.0)
[2021-10-25 07:21] LABS: ALBUMIN 1.3 g/dl (3.4-5.0); BLOOD UREA NITROGEN 61.4 mg/dL (7-18); CALCIUM 8.9 mg/dL (8.5-10.1)
[2021-10-25 07:24] LABS: BILIRUBIN,DIRECT 0.1 mg/dL (0.0-0.2); CREATININE 3.3 mg/dL (0.55-1.3); PHOSPHOROUS 2.8 mg/dL (2.5-4.9)
[2021-10-25 07:25] LABS: BILIRUBIN,TOTAL 0.3 mg/dL (0.2-1)
[2021-10-25 07:26] LABS: TOT PROT 4.8 g/dl (6.4-8.2)
[2021-10-25] MEDS: AMINO ACIDS/PROTEIN HYDROLYS 30 ML LIQUID.PKT PO SCH (09:00)
[2021-10-25] MEDS: MUPIROCIN 2% TOPICAL OINTMENT FOR DECOLONIZATION NS SCH (09:00)
[2021-10-25] MEDS: PANTOPRAZOLE SODIUM 40 MG VIAL IVPUSH SCH (09:00)
[2021-10-25] MEDS: COLLAGENASE CLOSTRIDIUM HIST. 30 GRAMS TUBE TP SCH (09:00)
[2021-10-25] MEDS: amLODIPine BESYLATE 5 MG TABLET (FP) NGT SCH (09:00)
[2021-10-25] MEDS: CASPOFUNGIN ACETATE 50 MG in SODIUM CHLORIDE 250 ML IVPB SCH (14:45)
[2021-10-25] MEDS ORDERED: amLODIPine BESYLATE 5 MG TABLET (FP) NGT ONE (16:06)
[2021-10-25] MEDS: BANATROL PLUS POWDER PACKET PO SCH (21:38)
[2021-10-25] MEDS: CHLORHEXIDINE GLUCONATE 4% CLEANSER FOR DECOLONIZATION TP SCH (21:39)
[2021-10-25] MEDS: METOPROLOL TARTRATE 25 MG TABLET (FP) NGT ONE ×2 (22:15→23:02)
[2021-10-25] MEDS ORDERED: METOPROLOL TARTRATE 25 MG TABLET (FP) NGT ONE (22:30)
[2021-10-26] MEDS: PIPERACILLIN/TAZOB 2.25 GM 2.25 GM in DEXTROSE 5%-WATER - 50 ML IVPB SCH ×3 (01:12→18:43)
[2021-10-26] MEDS ORDERED: METOPROLOL TARTRATE 5 MG/5 ML VIAL IVPUSH ONE (04:04)
[2021-10-26] MEDS: BANATROL PLUS POWDER PACKET PO SCH ×3 (06:18→21:47)
[2021-10-26] MEDS: HEPARIN NA (PORCINE) 5,000 UNITS/ML 1ML VIAL SQ SCH ×3 (06:18→21:47)
[2021-10-26 07:52] LABS: HEMATOCRIT 25.4 % (35.4-49); HEMOGLOBIN 8.4 GM/dL (11.7-16.9); MCHC 32.9 g/dl (32.0-35.9); MEAN CELL VOLUME 88.1 fl (80-96); MEAN PLT VOLUME 9.4 fl (7.5-11.1); PLATELET COUNT 90 10^3/uL (134-434); RBC 2.89 M/mm3 (4.00-5.60); WHITE BLOOD COUNT 19.1 K/mm3 (4.0-10.0)
[2021-10-26 08:19] LABS: CALCIUM 9.7 mg/dL (8.5-10.1)
[2021-10-26 08:20] LABS: ALBUMIN 1.4 g/dl (3.4-5.0); BLOOD UREA NITROGEN 75.7 mg/dL (7-18); MAGNESIUM 2.1 mg/dL (1.8-2.4)
[2021-10-26 08:23] LABS: CREATININE 3.7 mg/dL (0.55-1.3); PHOSPHOROUS 4.2 mg/dL (2.5-4.9)
[2021-10-26 08:24] LABS: BILIRUBIN,TOTAL 0.5 mg/dL (0.2-1); TOT PROT 5.2 g/dl (6.4-8.2)
[2021-10-26] MEDS ORDERED: SODIUM CHLORIDE 250 ML IV PRN (09:45)
[2021-10-26] MEDS ORDERED: EPOETIN ALFA-EPBX 10,000 UNIT/ML VIAL SQ ONE (10:00)
[2021-10-26 10:04] LABS: ANISOCYTOSIS 0; MACROCYTOSIS 0
[2021-10-26] MEDS ORDERED: RAPID SEQUENCE INTUBATION KIT NR ONE (10:10)
[2021-10-26] MEDS ORDERED: MIDAZOLAM HCL 2 MG/2 ML SINGLE DOSE VIAL ONE (10:14)
[2021-10-26] MEDS: AMINO ACIDS/PROTEIN HYDROLYS 30 ML LIQUID.PKT PO SCH (11:27)
[2021-10-26] MEDS: COLLAGENASE CLOSTRIDIUM HIST. 30 GRAMS TUBE TP SCH (11:28)
[2021-10-26] MEDS: amLODIPine BESYLATE 5 MG TABLET (FP) NGT SCH (11:28)
[2021-10-26] MEDS: PANTOPRAZOLE SODIUM 40 MG VIAL IVPUSH SCH (11:28)
[2021-10-26] MEDS: MIDAZOLAM IN 0.9 % SOD.CHLORID 100 MG/100 ML PLAST..BAG IVPB SCH (13:15)
[2021-10-26] MEDS: methylPREDNISolone NA SUCC 40 MG/1 ML VIAL IVPUSH SCH ×2 (13:16→18:43)
[2021-10-26] MEDS: ALBUTEROL SO4 0.083% IH SOL 2.5 MG/3 ML VIAL.NEB. NEB PRN (13:18)
[2021-10-26] MEDS: ACETYLCYSTEINE 20% 200MG/ML 4 ML VIAL *FOR ORAL / INH USE ONLY NEB SCH ×2 (13:18→20:05)
[2021-10-26] MEDS: CASPOFUNGIN ACETATE 50 MG in SODIUM CHLORIDE 250 ML IVPB SCH (14:24)
[2021-10-26] MEDS: CHLORHEXIDINE GLUCONATE 4% CLEANSER FOR DECOLONIZATION TP SCH (21:48)
[2021-10-27] MEDS: methylPREDNISolone NA SUCC 40 MG/1 ML VIAL IVPUSH SCH ×3 (02:44→17:12)
[2021-10-27] MEDS: PIPERACILLIN/TAZOB 2.25 GM 2.25 GM in DEXTROSE 5%-WATER - 50 ML IVPB SCH ×2 (02:44→10:41)
[2021-10-27] MEDS: HEPARIN NA (PORCINE) 5,000 UNITS/ML 1ML VIAL SQ SCH ×2 (06:30→14:44)
[2021-10-27] MEDS: BANATROL PLUS POWDER PACKET PO SCH ×3 (06:30→21:24)
[2021-10-27 08:13] LABS: HEMATOCRIT 23.1 % (35.4-49); HEMOGLOBIN 7.7 GM/dL (11.7-16.9); MCH 29.8 pg (25.7-33.7); MCHC 33.4 g/dl (32.0-35.9); MEAN CELL VOLUME 89.2 fl (80-96); MEAN PLT VOLUME 9.6 fl (7.5-11.1); PLATELET COUNT 76 10^3/uL (134-434); RBC 2.58 M/mm3 (4.00-5.60); RDW 16.2 % (11.9-15.9); WHITE BLOOD COUNT 15.8 K/mm3 (4.0-10.0)
[2021-10-27] MEDS: AMINO ACIDS/PROTEIN HYDROLYS 30 ML LIQUID.PKT PO SCH (08:16)
[2021-10-27 08:27] LABS: ALBUMIN 1.6 g/dl (3.4-5.0); CALCIUM 9.4 mg/dL (8.5-10.1)
[2021-10-27 08:30] LABS: CREATININE 2.6 mg/dL (0.55-1.3); PHOSPHOROUS 3.7 mg/dL (2.5-4.9)
[2021-10-27 08:31] LABS: BILIRUBIN,TOTAL 0.6 mg/dL (0.2-1); TOT PROT 5.2 g/dl (6.4-8.2)
[2021-10-27] MEDS: ACETYLCYSTEINE 20% 200MG/ML 4 ML VIAL *FOR ORAL / INH USE ONLY NEB SCH ×3 (08:40→20:51)
[2021-10-27] MEDS: ALBUTEROL SO4 0.083% IH SOL 2.5 MG/3 ML VIAL.NEB. NEB PRN ×3 (08:40→20:51)
[2021-10-27 08:57] LABS: BLOOD UREA NITROGEN 47.8 mg/dL (7-18)
[2021-10-27 10:17] LABS: ANISOCYTOSIS 0; HELMET CELLS 0; HOWELL-JOLLY BODIES 0; MACROCYTOSIS 0; OVALOCYTE 0; ROULEAU 0; SICKELED CELLS 0; TARGET CELLS 0; TEAR DROP CELLS 0; TOXIC GRANULATION 0
[2021-10-27] MEDS: amLODIPine BESYLATE 5 MG TABLET (FP) NGT SCH (10:41)
[2021-10-27] MEDS: COLLAGENASE CLOSTRIDIUM HIST. 30 GRAMS TUBE TP SCH (10:41)
[2021-10-27] MEDS: PANTOPRAZOLE SODIUM 40 MG VIAL IVPUSH SCH (10:41)
[2021-10-27] MEDS: CASPOFUNGIN ACETATE 50 MG in SODIUM CHLORIDE 250 ML IVPB SCH (14:44)
[2021-10-27] MEDS: MIDAZOLAM IN 0.9 % SOD.CHLORID 100 MG/100 ML PLAST..BAG IVPB SCH (14:44)
[2021-10-27] MEDS ORDERED: SODIUM CHLORIDE 250 ML IV PRN (17:14)
[2021-10-27] MEDS ORDERED: amLODIPine BESYLATE 5 MG TABLET (FP) PO ONE (19:47)
[2021-10-27] MEDS ORDERED: LABETALOL HCL 5 MG/1 ML (100MG/20 ML VIAL) IVPUSH ONE ×2 (20:43→23:38)
[2021-10-27] MEDS: CHLORHEXIDINE GLUCONATE 4% CLEANSER FOR DECOLONIZATION TP SCH (21:24)
[2021-10-28] MEDS: methylPREDNISolone NA SUCC 40 MG/1 ML VIAL IVPUSH SCH (03:16)
[2021-10-28] MEDS: BANATROL PLUS POWDER PACKET PO SCH ×3 (06:11→22:15)
[2021-10-28 07:00] LABS: HEMATOCRIT 23.7 % (35.4-49); HEMOGLOBIN 7.9 GM/dL (11.7-16.9); MCH 29.5 pg (25.7-33.7); MCHC 33.4 g/dl (32.0-35.9); MEAN CELL VOLUME 88.4 fl (80-96); MEAN PLT VOLUME 9.4 fl (7.5-11.1); PLATELET COUNT 108 10^3/uL (134-434); RBC 2.68 M/mm3 (4.00-5.60); RDW 16.8 % (11.9-15.9); WHITE BLOOD COUNT 16.6 K/mm3 (4.0-10.0)
[2021-10-28 07:17] LABS: ALBUMIN 1.6 g/dl (3.4-5.0); BLOOD UREA NITROGEN 60.1 mg/dL (7-18); CALCIUM 9.5 mg/dL (8.5-10.1); MAGNESIUM 2.2 mg/dL (1.8-2.4)
[2021-10-28 07:19] LABS: PHOSPHOROUS 4.8 mg/dL (2.5-4.9)
[2021-10-28 07:20] LABS: CREATININE 3.1 mg/dL (0.55-1.3)
[2021-10-28] MEDS: ALBUTEROL SO4 0.083% IH SOL 2.5 MG/3 ML VIAL.NEB. NEB PRN ×3 (07:20→20:10)
[2021-10-28] MEDS: ACETYLCYSTEINE 20% 200MG/ML 4 ML VIAL *FOR ORAL / INH USE ONLY NEB SCH ×3 (07:20→20:10)
[2021-10-28 07:22] LABS: BILIRUBIN,TOTAL 0.4 mg/dL (0.2-1); TOT PROT 5.3 g/dl (6.4-8.2)
[2021-10-28] MEDS ORDERED: EPOETIN ALFA-EPBX 10,000 UNIT/ML VIAL IVPUSH ONE (08:45)
[2021-10-28] MEDS: AMINO ACIDS/PROTEIN HYDROLYS 30 ML LIQUID.PKT PO SCH (09:12)
[2021-10-28] MEDS: PANTOPRAZOLE SODIUM 40 MG VIAL IVPUSH SCH (09:12)
[2021-10-28] MEDS: amLODIPine BESYLATE 5 MG TABLET (FP) NGT SCH (09:13)
[2021-10-28] MEDS: COLLAGENASE CLOSTRIDIUM HIST. 30 GRAMS TUBE TP SCH (09:13)
[2021-10-28 09:58] LABS: ANISOCYTOSIS 0; MACROCYTOSIS 0; PLATELET ESTIMATE DECREASED
[2021-10-28] MEDS: MIDAZOLAM IN 0.9 % SOD.CHLORID 100 MG/100 ML PLAST..BAG IVPB SCH (11:01)
[2021-10-28] MEDS: CASPOFUNGIN ACETATE 50 MG in SODIUM CHLORIDE 250 ML IVPB SCH (13:06)
[2021-10-28] MEDS ORDERED: VANCOMYCIN/WATER FOR INJ (PEG) 1,000 MG/200 ML BAG IVPB ONE (18:00)
[2021-10-28] MEDS ORDERED: GENTAMICIN INJECTION 60 MG in SODIUM CHLORIDE 100 ML IVPB ONE (19:00)
[2021-10-28] MEDS: CHLORHEXIDINE GLUCONATE 4% CLEANSER FOR DECOLONIZATION TP SCH (22:16)
[2021-10-29] MEDS ORDERED: ACETAMINOPHEN 1000 MG/100 ML BAG IVPB PRN ×2 (04:06→04:32)
[2021-10-29] MEDS: BANATROL PLUS POWDER PACKET PO SCH ×3 (05:45→22:03)
[2021-10-29 06:23] LABS: HEMATOCRIT 20.3 % (35.4-49); MCH 29.3 pg (25.7-33.7); MCHC 32.6 g/dl (32.0-35.9); MEAN CELL VOLUME 89.6 fl (80-96); MEAN PLT VOLUME 9.3 fl (7.5-11.1); PLATELET COUNT 102 10^3/uL (134-434); RBC 2.27 M/mm3 (4.00-5.60); RDW 16.5 % (11.9-15.9); WHITE BLOOD COUNT 13.6 K/mm3 (4.0-10.0)
[2021-10-29 06:41] LABS: HEMOGLOBIN 6.6 GM/dL (11.7-16.9)
[2021-10-29 06:48] LABS: CALCIUM 8.7 mg/dL (8.5-10.1)
[2021-10-29 06:49] LABS: ALBUMIN 1.6 g/dl (3.4-5.0); BLOOD UREA NITROGEN 47.8 mg/dL (7-18); MAGNESIUM 1.8 mg/dL (1.8-2.4)
[2021-10-29 06:52] LABS: CREATININE 2.4 mg/dL (0.55-1.3); LACTIC ACID 3.2 mmol/L (0.4-2.0); PHOSPHOROUS 3.5 mg/dL (2.5-4.9)
[2021-10-29 06:53] LABS: BILIRUBIN,TOTAL 0.4 mg/dL (0.2-1); TOT PROT 4.7 g/dl (6.4-8.2)
[2021-10-29] MEDS: ACETYLCYSTEINE 20% 200MG/ML 4 ML VIAL *FOR ORAL / INH USE ONLY NEB SCH ×3 (07:50→20:45)
[2021-10-29] MEDS: ALBUTEROL SO4 0.083% IH SOL 2.5 MG/3 ML VIAL.NEB. NEB PRN ×3 (07:50→20:45)
[2021-10-29 09:47] LABS: PLATELET ESTIMATE DECREASED
[2021-10-29] MEDS: AMINO ACIDS/PROTEIN HYDROLYS 30 ML LIQUID.PKT PO SCH (11:09)
[2021-10-29] MEDS: amLODIPine BESYLATE 5 MG TABLET (FP) NGT SCH (11:09)
[2021-10-29] MEDS: COLLAGENASE CLOSTRIDIUM HIST. 30 GRAMS TUBE TP SCH (11:10)
[2021-10-29] MEDS: PANTOPRAZOLE SODIUM 40 MG VIAL IVPUSH SCH (11:10)
[2021-10-29 13:28] LABS: BASO % 0.1 % (0-2.0); EOS % 0.1 % (0-4.5); HEMOGLOBIN 7.3 GM/dL (11.7-16.9); LYMPH % 7.7 % (8-40); MCH 29.5 pg (25.7-33.7); MEAN CELL VOLUME 89.5 fl (80-96); MEAN PLT VOLUME 9.1 fl (7.5-11.1); NEUT % 90.1 % (42.8-82.8); PLATELET COUNT 101 10^3/uL (134-434); RBC 2.46 M/mm3 (4.00-5.60); RDW 16.6 % (11.9-15.9); WHITE BLOOD COUNT 14.2 K/mm3 (4.0-10.0)
[2021-10-29] MEDS: CASPOFUNGIN ACETATE 50 MG in SODIUM CHLORIDE 250 ML IVPB SCH (15:35)
[2021-10-29] MEDS ORDERED: SODIUM CHLORIDE 250 ML IV PRN (15:57)
[2021-10-29] MEDS: MIDAZOLAM IN 0.9 % SOD.CHLORID 100 MG/100 ML PLAST..BAG IVPB SCH (21:37)
[2021-10-29] MEDS: CHLORHEXIDINE GLUCONATE 4% CLEANSER FOR DECOLONIZATION TP SCH (22:04)
[2021-10-30] MEDS ORDERED: ONDANSETRON 4 MG/2 ML VIAL IVPUSH PRN (00:17)
[2021-10-30] MEDS: BANATROL PLUS POWDER PACKET PO SCH ×3 (05:14→21:02)
[2021-10-30] MEDS: ACETYLCYSTEINE 20% 200MG/ML 4 ML VIAL *FOR ORAL / INH USE ONLY NEB SCH ×3 (07:50→20:50)
[2021-10-30] MEDS: ALBUTEROL SO4 0.083% IH SOL 2.5 MG/3 ML VIAL.NEB. NEB PRN ×3 (07:50→20:50)
[2021-10-30 08:10] LABS: BASO % 1.1 % (0-2.0); EOS % 3.3 % (0-4.5); HEMATOCRIT 21.5 % (35.4-49); HEMOGLOBIN 7.1 GM/dL (11.7-16.9); LYMPH % 6.9 % (8-40); MCH 30.1 pg (25.7-33.7); MEAN CELL VOLUME 91.3 fl (80-96); MEAN PLT VOLUME 9.4 fl (7.5-11.1); MONO % 1.1 % (3.8-10.2); NEUT % 87.6 % (42.8-82.8); PLATELET COUNT 97 10^3/uL (134-434); RBC 2.35 M/mm3 (4.00-5.60); RDW 16.5 % (11.9-15.9); WHITE BLOOD COUNT 11.4 K/mm3 (4.0-10.0)
[2021-10-30 08:26] LABS: CALCIUM 8.9 mg/dL (8.5-10.1)
[2021-10-30 08:27] LABS: ALBUMIN 1.5 g/dl (3.4-5.0); BLOOD UREA NITROGEN 57.5 mg/dL (7-18); MAGNESIUM 1.9 mg/dL (1.8-2.4)
[2021-10-30 08:30] LABS: CREATININE 2.6 mg/dL (0.55-1.3); PHOSPHOROUS 4.2 mg/dL (2.5-4.9)
[2021-10-30] MEDS ORDERED: EPOETIN ALFA-EPBX 10,000 UNIT/ML VIAL SQ ONE (08:30)
[2021-10-30 08:31] LABS: BILIRUBIN,TOTAL 0.3 mg/dL (0.2-1); TOT PROT 4.8 g/dl (6.4-8.2)
[2021-10-30] MEDS: AMINO ACIDS/PROTEIN HYDROLYS 30 ML LIQUID.PKT PO SCH (08:55)
[2021-10-30] MEDS: COLLAGENASE CLOSTRIDIUM HIST. 30 GRAMS TUBE TP SCH (10:44)
[2021-10-30] MEDS: amLODIPine BESYLATE 5 MG TABLET (FP) NGT SCH (10:45)
[2021-10-30] MEDS: PANTOPRAZOLE SODIUM 40 MG VIAL IVPUSH SCH (10:45)
[2021-10-30] MEDS: MIDAZOLAM IN 0.9 % SOD.CHLORID 100 MG/100 ML PLAST..BAG IVPB SCH ×2 (12:29→13:29)
[2021-10-30] MEDS: CASPOFUNGIN ACETATE 50 MG in SODIUM CHLORIDE 250 ML IVPB SCH (12:30)
[2021-10-30] MEDS: CHLORHEXIDINE GLUCONATE 4% CLEANSER FOR DECOLONIZATION TP SCH (21:02)
[2021-10-31] MEDS: BANATROL PLUS POWDER PACKET PO SCH ×3 (05:18→21:40)
[2021-10-31 07:52] LABS: HEMATOCRIT 20.7 % (35.4-49); MCH 30.4 pg (25.7-33.7); MEAN CELL VOLUME 92.2 fl (80-96); MEAN PLT VOLUME 9.1 fl (7.5-11.1); PLATELET COUNT 95 10^3/uL (134-434); RBC 2.25 M/mm3 (4.00-5.60); RDW 16.5 % (11.9-15.9); WHITE BLOOD COUNT 11.6 K/mm3 (4.0-10.0)
[2021-10-31 08:16] LABS: CALCIUM 8.6 mg/dL (8.5-10.1)
[2021-10-31 08:17] LABS: BLOOD UREA NITROGEN 35.1 mg/dL (7-18); HEMOGLOBIN 6.8 GM/dL (11.7-16.9); MAGNESIUM 1.7 mg/dL (1.8-2.4)
[2021-10-31] MEDS: ACETYLCYSTEINE 20% 200MG/ML 4 ML VIAL *FOR ORAL / INH USE ONLY NEB SCH ×3 (08:19→20:45)
[2021-10-31 08:20] LABS: CREATININE 1.7 mg/dL (0.55-1.3); PHOSPHOROUS 2.6 mg/dL (2.5-4.9)
[2021-10-31] MEDS: ALBUTEROL SO4 0.083% IH SOL 2.5 MG/3 ML VIAL.NEB. NEB PRN ×3 (08:20→20:45)
[2021-10-31] MEDS: AMINO ACIDS/PROTEIN HYDROLYS 30 ML LIQUID.PKT PO SCH (09:26)
[2021-10-31] MEDS: amLODIPine BESYLATE 5 MG TABLET (FP) NGT SCH (09:27)
[2021-10-31] MEDS: PANTOPRAZOLE SODIUM 40 MG VIAL IVPUSH SCH (09:27)
[2021-10-31] MEDS: COLLAGENASE CLOSTRIDIUM HIST. 30 GRAMS TUBE TP SCH (09:41)
[2021-10-31] MEDS: CASPOFUNGIN ACETATE 50 MG in SODIUM CHLORIDE 250 ML IVPB SCH (12:32)
[2021-10-31] MEDS ORDERED: LABETALOL HCL 5 MG/1 ML (100MG/20 ML VIAL) IVPUSH SCH (21:15)
[2021-10-31] MEDS: LABETALOL HCL 5 MG/1 ML (100MG/20 ML VIAL) IVPUSH PRN (21:39)
[2021-10-31] MEDS: CHLORHEXIDINE GLUCONATE 4% CLEANSER FOR DECOLONIZATION TP SCH (21:40)
[2021-11-01] MEDS: LABETALOL HCL 5 MG/1 ML (100MG/20 ML VIAL) IVPUSH PRN ×3 (02:02→22:49)
[2021-11-01] MEDS: BANATROL PLUS POWDER PACKET PO SCH ×3 (06:13→21:13)
[2021-11-01 07:27] LABS: BASO % 0.2 % (0-2.0); EOS % 3.6 % (0-4.5); HEMOGLOBIN 8.9 GM/dL (11.7-16.9); MCH 29.8 pg (25.7-33.7); MCHC 34.2 g/dl (32.0-35.9); MEAN CELL VOLUME 86.9 fl (80-96); MEAN PLT VOLUME 8.7 fl (7.5-11.1); MONO % 1.9 % (3.8-10.2); NEUT % 89.3 % (42.8-82.8); PLATELET COUNT 119 10^3/uL (134-434); RBC 2.99 M/mm3 (4.00-5.60); RDW 16.8 % (11.9-15.9); WHITE BLOOD COUNT 12.8 K/mm3 (4.0-10.0)
[2021-11-01] MEDS: ALBUTEROL SO4 0.083% IH SOL 2.5 MG/3 ML VIAL.NEB. NEB PRN ×3 (07:45→19:50)
[2021-11-01] MEDS: ACETYLCYSTEINE 20% 200MG/ML 4 ML VIAL *FOR ORAL / INH USE ONLY NEB SCH ×3 (07:45→19:50)
[2021-11-01 08:10] LABS: ALBUMIN 1.5 g/dl (3.4-5.0); CALCIUM 8.9 mg/dL (8.5-10.1)
[2021-11-01 08:11] LABS: MAGNESIUM 1.8 mg/dL (1.8-2.4)
[2021-11-01 08:15] LABS: PHOSPHOROUS 3.2 mg/dL (2.5-4.9); TOT PROT 4.6 g/dl (6.4-8.2)
[2021-11-01 08:16] LABS: BILIRUBIN,TOTAL 0.4 mg/dL (0.2-1)
[2021-11-01] MEDS: PANTOPRAZOLE SODIUM 40 MG VIAL IVPUSH SCH (09:35)
[2021-11-01] MEDS: AMINO ACIDS/PROTEIN HYDROLYS 30 ML LIQUID.PKT PO SCH (09:35)
[2021-11-01] MEDS: amLODIPine BESYLATE 5 MG TABLET (FP) NGT SCH (09:35)
[2021-11-01] MEDS: COLLAGENASE CLOSTRIDIUM HIST. 30 GRAMS TUBE TP SCH (09:36)
[2021-11-01] MEDS ORDERED: SODIUM CHLORIDE 250 ML IV PRN (11:14)
[2021-11-01] MEDS: CASPOFUNGIN ACETATE 50 MG in SODIUM CHLORIDE 250 ML IVPB SCH (14:00)
[2021-11-01] MEDS ORDERED: HEPARIN NA (PORCINE) 5,000 UNITS/ML 1ML VIAL SQ SCH (14:00)
[2021-11-01] MEDS ORDERED: POTASSIUM CHLORIDE 20 MEQ PREMIX IVPB 100 ML IVPB ONE (15:29)
[2021-11-01] MEDS: CHLORHEXIDINE GLUCONATE 4% CLEANSER FOR DECOLONIZATION TP SCH (21:13)
[2021-11-02 07:11] LABS: HEMATOCRIT 28.4 % (35.4-49); HEMOGLOBIN 9.4 GM/dL (11.7-16.9); MCHC 33.2 g/dl (32.0-35.9); MEAN CELL VOLUME 87.3 fl (80-96); MEAN PLT VOLUME 8.8 fl (7.5-11.1); PLATELET COUNT 170 10^3/uL (134-434); RBC 3.26 M/mm3 (4.00-5.60); RDW 17.3 % (11.9-15.9); WHITE BLOOD COUNT 22.3 K/mm3 (4.0-10.0)
[2021-11-02 07:35] LABS: CALCIUM 9.1 mg/dL (8.5-10.1)
[2021-11-02 07:36] LABS: ALBUMIN 1.5 g/dl (3.4-5.0); BLOOD UREA NITROGEN 59.5 mg/dL (7-18)
[2021-11-02 07:39] LABS: CREATININE 2.4 mg/dL (0.55-1.3); PHOSPHOROUS 3.4 mg/dL (2.5-4.9)
[2021-11-02 07:41] LABS: BILIRUBIN,TOTAL 0.4 mg/dL (0.2-1); TOT PROT 4.9 g/dl (6.4-8.2)
[2021-11-02] MEDS ORDERED: EPOETIN ALFA-EPBX 10,000 UNIT/ML VIAL IVPUSH ONE (08:30)
[2021-11-02] MEDS: ACETYLCYSTEINE 20% 200MG/ML 4 ML VIAL *FOR ORAL / INH USE ONLY NEB SCH ×3 (08:35→20:05)
[2021-11-02] MEDS: ALBUTEROL SO4 0.083% IH SOL 2.5 MG/3 ML VIAL.NEB. NEB PRN ×3 (08:35→20:05)
[2021-11-02] MEDS: ALBUMIN HUMAN 25% 12.5 GM/50 ML VIAL IV SCH ×2 (09:30→10:00)
[2021-11-02 09:39] LABS: ANISOCYTOSIS 0; HELMET CELLS 0; HOWELL-JOLLY BODIES 0; MACROCYTOSIS 0; OVALOCYTE 0; ROULEAU 0; SICKELED CELLS 0; TARGET CELLS 0; TEAR DROP CELLS 0; TOXIC GRANULATION 0
[2021-11-02] MEDS: AMINO ACIDS/PROTEIN HYDROLYS 30 ML LIQUID.PKT PO SCH (10:00)
[2021-11-02] MEDS: MORPHINE SULFATE/0.9% NACL/PF 100 MG/100 ML BAG IVPB SCH (12:38)
[2021-11-02] MEDS: CASPOFUNGIN ACETATE 50 MG in SODIUM CHLORIDE 250 ML IVPB SCH (12:50)
[2021-11-02] MEDS: amLODIPine BESYLATE 5 MG TABLET (FP) NGT SCH (13:10)
[2021-11-02] MEDS: COLLAGENASE CLOSTRIDIUM HIST. 30 GRAMS TUBE TP SCH (13:11)
[2021-11-02] MEDS: PANTOPRAZOLE SODIUM 40 MG VIAL IVPUSH SCH (13:11)
[2021-11-02] MEDS ORDERED: MIDAZOLAM HCL 5 MG/1 ML Single Dose Vial IVPUSH ONE (19:48)
[2021-11-02] MEDS ORDERED: MIDAZOLAM HCL 5 MG/1 ML Single Dose Vial ONE (19:54)
[2021-11-02] MEDS: PROPOFOL 1,000,000 MCG/100 ML VIAL IVPB SCH (20:12)
[2021-11-02 20:53] LABS: HEMATOCRIT 22.1 % (35.4-49); HEMOGLOBIN 7.2 GM/dL (11.7-16.9); MCH 28.9 pg (25.7-33.7); MCHC 32.6 g/dl (32.0-35.9); MEAN CELL VOLUME 88.6 fl (80-96); PLATELET COUNT 41 10^3/uL (134-434)
[2021-11-02 21:08] LABS: WHITE BLOOD COUNT 31.2 K/mm3 (4.0-10.0)
[2021-11-02 21:24] LABS: ANISOCYTOSIS 1+; MACROCYTOSIS 0; PLATELET ESTIMATE DECREASED
[2021-11-02 21:30] LABS: CALCIUM 8.6 mg/dL (8.5-10.1)
[2021-11-02] MEDS: BANATROL PLUS POWDER PACKET PO SCH (21:30)
[2021-11-02] MEDS: CHLORHEXIDINE GLUCONATE 4% CLEANSER FOR DECOLONIZATION TP SCH (21:30)
[2021-11-02 21:31] LABS: ALBUMIN 1.6 g/dl (3.4-5.0); BLOOD UREA NITROGEN 43.4 mg/dL (7-18)
[2021-11-02 21:34] LABS: CREATININE 1.9 mg/dL (0.55-1.3)
[2021-11-02 21:35] LABS: TOT PROT 4.6 g/dl (6.4-8.2)
[2021-11-02 21:36] LABS: BILIRUBIN,TOTAL 0.5 mg/dL (0.2-1)
[2021-11-03] MEDS: BANATROL PLUS POWDER PACKET PO SCH ×4 (06:12→21:15)
[2021-11-03 08:03] LABS: CALCIUM 8.5 mg/dL (8.5-10.1)
[2021-11-03 08:04] LABS: ALBUMIN 1.5 g/dl (3.4-5.0); BLOOD UREA NITROGEN 51.9 mg/dL (7-18)
[2021-11-03 08:07] LABS: CREATININE 2.1 mg/dL (0.55-1.3); PHOSPHOROUS 3.3 mg/dL (2.5-4.9)
[2021-11-03 08:09] LABS: BILIRUBIN,TOTAL 0.4 mg/dL (0.2-1); TOT PROT 4.4 g/dl (6.4-8.2)
[2021-11-03 08:13] LABS: HEMATOCRIT 20.7 % (35.4-49); MCH 29.6 pg (25.7-33.7); MCHC 33.1 g/dl (32.0-35.9); MEAN CELL VOLUME 89.4 fl (80-96); MEAN PLT VOLUME 9.2 fl (7.5-11.1); PLATELET COUNT 59 10^3/uL (134-434); RBC 2.32 M/mm3 (4.00-5.60); RDW 17.9 % (11.9-15.9); WHITE BLOOD COUNT 18.7 K/mm3 (4.0-10.0)
[2021-11-03] MEDS: ACETYLCYSTEINE 20% 200MG/ML 4 ML VIAL *FOR ORAL / INH USE ONLY NEB SCH (08:22)
[2021-11-03] MEDS: ALBUTEROL SO4 0.083% IH SOL 2.5 MG/3 ML VIAL.NEB. NEB PRN ×2 (08:23→15:12)
[2021-11-03 08:41] LABS: HEMOGLOBIN 6.9 GM/dL (11.7-16.9)
[2021-11-03] MEDS: AMINO ACIDS/PROTEIN HYDROLYS 30 ML LIQUID.PKT PO SCH (09:28)
[2021-11-03] MEDS: amLODIPine BESYLATE 5 MG TABLET (FP) NGT SCH (09:28)
[2021-11-03] MEDS: PANTOPRAZOLE SODIUM 40 MG VIAL IVPUSH SCH (09:28)
[2021-11-03 09:53] LABS: ANISOCYTOSIS 2+; MACROCYTOSIS 1+
[2021-11-03] MEDS ORDERED: ACETYLCYSTEINE 20% 200MG/ML 4 ML VIAL *FOR ORAL / INH USE ONLY NEB PRN (10:22)
[2021-11-03] MEDS: COLLAGENASE CLOSTRIDIUM HIST. 30 GRAMS TUBE TP SCH (11:44)
[2021-11-03] MEDS: MORPHINE SULFATE/0.9% NACL/PF 100 MG/100 ML BAG IVPB SCH (11:51)
[2021-11-03] MEDS: CASPOFUNGIN ACETATE 50 MG in SODIUM CHLORIDE 250 ML IVPB SCH (14:45)
[2021-11-03] MEDS: PROPOFOL 1,000,000 MCG/100 ML VIAL IVPB SCH (19:45)
[2021-11-03] MEDS: CHLORHEXIDINE GLUCONATE 4% CLEANSER FOR DECOLONIZATION TP SCH (21:15)
[2021-11-03 23:45] LABS: BASO % 0.2 % (0-2.0); EOS % 2.5 % (0-4.5); HEMATOCRIT 20.1 % (35.4-49); LYMPH % 2.5 % (8-40); MCH 29.2 pg (25.7-33.7); MCHC 32.8 g/dl (32.0-35.9); MEAN CELL VOLUME 89.1 fl (80-96); MEAN PLT VOLUME 8.6 fl (7.5-11.1); MONO % 1.6 % (3.8-10.2); NEUT % 93.2 % (42.8-82.8); PLATELET COUNT 73 10^3/uL (134-434); RBC 2.25 M/mm3 (4.00-5.60); WHITE BLOOD COUNT 19.3 K/mm3 (4.0-10.0)
[2021-11-03 23:48] LABS: HEMOGLOBIN 6.6 GM/dL (11.7-16.9)
[2021-11-04] MEDS: BANATROL PLUS POWDER PACKET PO SCH ×3 (06:20→22:35)
[2021-11-04] MEDS: PANTOPRAZOLE SODIUM 40 MG VIAL IVPUSH SCH (09:40)
[2021-11-04] MEDS: AMINO ACIDS/PROTEIN HYDROLYS 30 ML LIQUID.PKT PO SCH (09:41)
[2021-11-04] MEDS: amLODIPine BESYLATE 5 MG TABLET (FP) NGT SCH (09:41)
[2021-11-04] MEDS: COLLAGENASE CLOSTRIDIUM HIST. 30 GRAMS TUBE TP SCH (11:52)
[2021-11-04 20:01] LABS: BASO % 0.2 % (0-2.0); HEMATOCRIT 17.9 % (35.4-49); LYMPH % 3.2 % (8-40); MCH 29.4 pg (25.7-33.7); MCHC 32.5 g/dl (32.0-35.9); MEAN CELL VOLUME 90.6 fl (80-96); NEUT % 90.6 % (42.8-82.8); PLATELET COUNT 74 10^3/uL (134-434); RBC 1.97 M/mm3 (4.00-5.60); RDW 18.7 % (11.9-15.9); WHITE BLOOD COUNT 15.5 K/mm3 (4.0-10.0)
[2021-11-04 20:07] LABS: HEMOGLOBIN 5.8 GM/dL (11.7-16.9)
[2021-11-04 20:15] LABS: CALCIUM 8.7 mg/dL (8.5-10.1)
[2021-11-04 20:16] LABS: ALBUMIN 1.2 g/dl (3.4-5.0); MAGNESIUM 2.1 mg/dL (1.8-2.4)
[2021-11-04 20:19] LABS: CREATININE 2.4 mg/dL (0.55-1.3); PHOSPHOROUS 4.8 mg/dL (2.5-4.9)
[2021-11-04 20:20] LABS: BILIRUBIN,TOTAL 0.4 mg/dL (0.2-1); TOT PROT 3.9 g/dl (6.4-8.2)
[2021-11-04 20:22] LABS: BLOOD UREA NITROGEN 69.9 mg/dL (7-18)
[2021-11-04] MEDS: PROPOFOL 1,000,000 MCG/100 ML VIAL IVPB SCH (20:51)
[2021-11-04] MEDS: MORPHINE SULFATE/0.9% NACL/PF 100 MG/100 ML BAG IVPB SCH (20:52)
[2021-11-04] MEDS: CHLORHEXIDINE GLUCONATE 4% CLEANSER FOR DECOLONIZATION TP SCH (22:35)
[2021-11-05 01:43] LABS: HEMATOCRIT 27.8 % (35.4-49); HEMOGLOBIN 9.3 GM/dL (11.7-16.9); MCH 29.1 pg (25.7-33.7); MCHC 33.4 g/dl (32.0-35.9); MEAN CELL VOLUME 87.2 fl (80-96); MEAN PLT VOLUME 8.6 fl (7.5-11.1); PLATELET COUNT 63 10^3/uL (134-434); RBC 3.19 M/mm3 (4.00-5.60); WHITE BLOOD COUNT 15.6 K/mm3 (4.0-10.0)
[2021-11-05 03:05] LABS: ANISOCYTOSIS 1+; MACROCYTOSIS 1+; OVALOCYTE 2+
[2021-11-05] MEDS: BANATROL PLUS POWDER PACKET PO SCH ×3 (05:10→21:46)
[2021-11-05] MEDS ORDERED: EPOETIN ALFA-EPBX 10,000 UNIT/ML VIAL SQ ONE (07:00)
[2021-11-05] MEDS ORDERED: SODIUM CHLORIDE 250 ML IV PRN (07:00)
[2021-11-05] MEDS: ALBUMIN HUMAN 25% 12.5 GM/50 ML VIAL IV SCH ×4 (07:30→09:36)
[2021-11-05 07:56] LABS: HEMATOCRIT 26.1 % (35.4-49); HEMOGLOBIN 8.9 GM/dL (11.7-16.9); MCH 29.4 pg (25.7-33.7); MCHC 34.3 g/dl (32.0-35.9); MEAN CELL VOLUME 85.9 fl (80-96); MEAN PLT VOLUME 8.3 fl (7.5-11.1); PLATELET COUNT 62 10^3/uL (134-434); RBC 3.03 M/mm3 (4.00-5.60); RDW 17.2 % (11.9-15.9)
[2021-11-05] MEDS ORDERED: NOREPINEPHRINE BITARTRATE 16,000 MCG in SODIUM CHLORIDE 484 ML IV SCH (08:00)
[2021-11-05] MEDS ORDERED: NOREPINEPHRINE BITARTRATE 4 MG/4 ML ML IV ONE (08:03)
[2021-11-05 08:17] LABS: ALBUMIN 1.3 g/dl (3.4-5.0); CALCIUM 8.7 mg/dL (8.5-10.1); MAGNESIUM 2.2 mg/dL (1.8-2.4)
[2021-11-05 08:18] LABS: BLOOD UREA NITROGEN 76.1 mg/dL (7-18)
[2021-11-05 08:21] LABS: CREATININE 2.5 mg/dL (0.55-1.3); PHOSPHOROUS 5.3 mg/dL (2.5-4.9)
[2021-11-05 08:22] LABS: BILIRUBIN,TOTAL 0.4 mg/dL (0.2-1); TOT PROT 4.2 g/dl (6.4-8.2)
[2021-11-05] MEDS: NOREPINEPHRINE D5W PREMIX 16,000 MCG/500 ML BAG IVPB SCH (08:30)
[2021-11-05 09:17] LABS: ANISOCYTOSIS 0; MACROCYTOSIS 0
[2021-11-05] MEDS: PANTOPRAZOLE SODIUM 40 MG VIAL IVPUSH SCH (10:41)
[2021-11-05] MEDS: AMINO ACIDS/PROTEIN HYDROLYS 30 ML LIQUID.PKT PO SCH (10:43)
[2021-11-05] MEDS: MORPHINE SULFATE/0.9% NACL/PF 100 MG/100 ML BAG IVPB SCH ×2 (11:11→21:46)
[2021-11-05] MEDS: COLLAGENASE CLOSTRIDIUM HIST. 30 GRAMS TUBE TP SCH (11:12)
[2021-11-05] MEDS: amLODIPine BESYLATE 5 MG TABLET (FP) NGT SCH (11:12)
[2021-11-05] MEDS: PROPOFOL 1,000,000 MCG/100 ML VIAL IVPB SCH (21:45)
[2021-11-05] MEDS: CHLORHEXIDINE GLUCONATE 4% CLEANSER FOR DECOLONIZATION TP SCH (21:46)
[2021-11-06] MEDS: BANATROL PLUS POWDER PACKET PO SCH ×3 (05:53→21:28)
[2021-11-06 07:36] LABS: BASO % 0.7 % (0-2.0); EOS % 3.5 % (0-4.5); HEMOGLOBIN 11.8 GM/dL (11.7-16.9); LYMPH % 3.3 % (8-40); MCH 29.7 pg (25.7-33.7); MCHC 33.8 g/dl (32.0-35.9); MEAN PLT VOLUME 9.1 fl (7.5-11.1); MONO % 2.5 % (3.8-10.2); PLATELET COUNT 81 10^3/uL (134-434); RBC 3.98 M/mm3 (4.00-5.60); RDW 18.3 % (11.9-15.9); WHITE BLOOD COUNT 13.8 K/mm3 (4.0-10.0)
[2021-11-06 07:53] LABS: CALCIUM 8.5 mg/dL (8.5-10.1)
[2021-11-06 07:56] LABS: MAGNESIUM 1.9 mg/dL (1.8-2.4); PHOSPHOROUS 3.4 mg/dL (2.5-4.9)
[2021-11-06 07:58] LABS: BILIRUBIN,TOTAL 0.5 mg/dL (0.2-1); TOT PROT 4.6 g/dl (6.4-8.2)
[2021-11-06 08:02] LABS: ALBUMIN 1.6 g/dl (3.4-5.0); BLOOD UREA NITROGEN 45.8 mg/dL (7-18); CREATININE 1.6 mg/dL (0.55-1.3)
[2021-11-06] MEDS: MORPHINE SULFATE/0.9% NACL/PF 100 MG/100 ML BAG IVPB SCH (08:42)
[2021-11-06] MEDS: COLLAGENASE CLOSTRIDIUM HIST. 30 GRAMS TUBE TP SCH (09:23)
[2021-11-06] MEDS: PANTOPRAZOLE SODIUM 40 MG VIAL IVPUSH SCH (09:23)
[2021-11-06] MEDS: AMINO ACIDS/PROTEIN HYDROLYS 30 ML LIQUID.PKT PO SCH (09:23)
[2021-11-06] MEDS: amLODIPine BESYLATE 5 MG TABLET (FP) NGT SCH (09:24)
[2021-11-06] MEDS: NOREPINEPHRINE D5W PREMIX 16,000 MCG/500 ML BAG IVPB SCH (09:24)
[2021-11-06] MEDS: PROPOFOL 1,000,000 MCG/100 ML VIAL IVPB SCH ×2 (18:07→21:28)
[2021-11-06] MEDS: CHLORHEXIDINE GLUCONATE 4% CLEANSER FOR DECOLONIZATION TP SCH (21:28)
[2021-11-07] MEDS: BANATROL PLUS POWDER PACKET PO SCH ×3 (06:12→21:45)
[2021-11-07] MEDS: NOREPINEPHRINE D5W PREMIX 16,000 MCG/500 ML BAG IVPB SCH (09:30)
[2021-11-07] MEDS: AMINO ACIDS/PROTEIN HYDROLYS 30 ML LIQUID.PKT PO SCH (09:30)
[2021-11-07] MEDS: COLLAGENASE CLOSTRIDIUM HIST. 30 GRAMS TUBE TP SCH (09:31)
[2021-11-07] MEDS: PANTOPRAZOLE SODIUM 40 MG VIAL IVPUSH SCH (09:31)
[2021-11-07] MEDS: MORPHINE SULFATE/0.9% NACL/PF 100 MG/100 ML BAG IVPB SCH ×2 (10:24→22:13)
[2021-11-07] MEDS: amLODIPine BESYLATE 5 MG TABLET (FP) NGT SCH (10:39)
[2021-11-07] MEDS: PROPOFOL 1,000,000 MCG/100 ML VIAL IVPB SCH (21:45)
[2021-11-07] MEDS: CHLORHEXIDINE GLUCONATE 4% CLEANSER FOR DECOLONIZATION TP SCH (21:45)
[2021-11-08] MEDS: BANATROL PLUS POWDER PACKET PO SCH ×3 (06:09→21:21)
[2021-11-08] MEDS ORDERED: EPOETIN ALFA-EPBX 10,000 UNIT/ML VIAL IVPUSH ONE (08:00)
[2021-11-08] MEDS ORDERED: SODIUM CHLORIDE 250 ML IV PRN (08:00)
[2021-11-08] MEDS: ALBUMIN HUMAN 25% 12.5 GM/50 ML VIAL IV SCH (09:12)
[2021-11-08 09:23] LABS: HEMATOCRIT 24.7 % (35.4-49); HEMOGLOBIN 8.4 GM/dL (11.7-16.9); MCH 29.5 pg (25.7-33.7); MCHC 33.9 g/dl (32.0-35.9); MEAN CELL VOLUME 87.1 fl (80-96); MEAN PLT VOLUME 7.9 fl (7.5-11.1); PLATELET COUNT 115 10^3/uL (134-434); RBC 2.83 M/mm3 (4.00-5.60); RDW 17.6 % (11.9-15.9); WHITE BLOOD COUNT 8.1 K/mm3 (4.0-10.0)
[2021-11-08 09:52] LABS: BLOOD UREA NITROGEN 67.4 mg/dL (7-18); CALCIUM 8.7 mg/dL (8.5-10.1)
[2021-11-08 09:53] LABS: MAGNESIUM 2.2 mg/dL (1.8-2.4)
[2021-11-08 09:55] LABS: CREATININE 2.1 mg/dL (0.55-1.3); PHOSPHOROUS 4.4 mg/dL (2.5-4.9)
[2021-11-08 09:57] LABS: BILIRUBIN,TOTAL 0.6 mg/dL (0.2-1)
[2021-11-08 09:58] LABS: TOT PROT 4.2 g/dl (6.4-8.2)
[2021-11-08 10:03] LABS: ALBUMIN 1.3 g/dl (3.4-5.0)
[2021-11-08] MEDS: AMINO ACIDS/PROTEIN HYDROLYS 30 ML LIQUID.PKT PO SCH (10:50)
[2021-11-08] MEDS: PANTOPRAZOLE SODIUM 40 MG VIAL IVPUSH SCH (10:50)
[2021-11-08] MEDS: NOREPINEPHRINE D5W PREMIX 16,000 MCG/500 ML BAG IVPB SCH (11:19)
[2021-11-08] MEDS: MORPHINE SULFATE/0.9% NACL/PF 100 MG/100 ML BAG IVPB SCH (13:12)
[2021-11-08] MEDS: COLLAGENASE CLOSTRIDIUM HIST. 30 GRAMS TUBE TP SCH (14:50)
[2021-11-08] MEDS: PROPOFOL 1,000,000 MCG/100 ML VIAL IVPB SCH (21:20)
[2021-11-08] MEDS: CHLORHEXIDINE GLUCONATE 4% CLEANSER FOR DECOLONIZATION TP SCH (21:21)
[2021-11-09] MEDS: BANATROL PLUS POWDER PACKET PO SCH ×3 (06:34→22:10)
[2021-11-09 08:24] LABS: BASO % 0.5 % (0-2.0); EOS % 1.3 % (0-4.5); HEMATOCRIT 27.3 % (35.4-49); HEMOGLOBIN 9.1 GM/dL (11.7-16.9); LYMPH % 6.2 % (8-40); MCH 29.3 pg (25.7-33.7); MCHC 33.3 g/dl (32.0-35.9); MEAN CELL VOLUME 87.7 fl (80-96); MEAN PLT VOLUME 7.8 fl (7.5-11.1); MONO % 4.1 % (3.8-10.2); NEUT % 87.9 % (42.8-82.8); PLATELET COUNT 117 10^3/uL (134-434); RBC 3.11 M/mm3 (4.00-5.60); RDW 17.7 % (11.9-15.9); WHITE BLOOD COUNT 9.3 K/mm3 (4.0-10.0)
[2021-11-09] MEDS: NOREPINEPHRINE D5W PREMIX 16,000 MCG/500 ML BAG IVPB SCH (08:30)
[2021-11-09 08:59] LABS: ALBUMIN 1.4 g/dl (3.4-5.0); BLOOD UREA NITROGEN 48.9 mg/dL (7-18); CALCIUM 8.5 mg/dL (8.5-10.1); MAGNESIUM 2.1 mg/dL (1.8-2.4)
[2021-11-09 09:00] LABS: PHOSPHOROUS 3.2 mg/dL (2.5-4.9)
[2021-11-09] MEDS: AMINO ACIDS/PROTEIN HYDROLYS 30 ML LIQUID.PKT PO SCH (09:00)
[2021-11-09 09:01] LABS: BILIRUBIN,TOTAL 0.5 mg/dL (0.2-1)
[2021-11-09 09:03] LABS: CREATININE 1.6 mg/dL (0.55-1.3)
[2021-11-09] MEDS: PANTOPRAZOLE SODIUM 40 MG VIAL IVPUSH SCH (10:13)
[2021-11-09] MEDS: MORPHINE SULFATE/0.9% NACL/PF 100 MG/100 ML BAG IVPB SCH (10:13)
[2021-11-09] MEDS: COLLAGENASE CLOSTRIDIUM HIST. 30 GRAMS TUBE TP SCH (10:14)
[2021-11-09] MEDS: PROPOFOL 1,000,000 MCG/100 ML VIAL IVPB SCH (20:45)
[2021-11-09] MEDS: CHLORHEXIDINE GLUCONATE 4% CLEANSER FOR DECOLONIZATION TP SCH (22:10)
[2021-11-10] MEDS: BANATROL PLUS POWDER PACKET PO SCH ×3 (05:32→21:52)
[2021-11-10] MEDS: AMINO ACIDS/PROTEIN HYDROLYS 30 ML LIQUID.PKT PO SCH (09:55)
[2021-11-10 09:56] LABS: BASO % 0.4 % (0-2.0); EOS % 1.5 % (0-4.5); HEMATOCRIT 27.8 % (35.4-49); HEMOGLOBIN 9.2 GM/dL (11.7-16.9); LYMPH % 6.4 % (8-40); MCHC 33.3 g/dl (32.0-35.9); MEAN CELL VOLUME 87.3 fl (80-96); MEAN PLT VOLUME 7.9 fl (7.5-11.1); MONO % 3.9 % (3.8-10.2); NEUT % 87.8 % (42.8-82.8); PLATELET COUNT 149 10^3/uL (134-434); RBC 3.19 M/mm3 (4.00-5.60); RDW 16.7 % (11.9-15.9); WHITE BLOOD COUNT 9.5 K/mm3 (4.0-10.0)
[2021-11-10] MEDS ORDERED: SODIUM CHLORIDE 250 ML IV PRN (10:00)
[2021-11-10] MEDS: ALBUMIN HUMAN 25% 12.5 GM/50 ML VIAL IV SCH ×4 (10:00→11:30)
[2021-11-10] MEDS: PANTOPRAZOLE SODIUM 40 MG VIAL IVPUSH SCH (10:25)
[2021-11-10] MEDS: COLLAGENASE CLOSTRIDIUM HIST. 30 GRAMS TUBE TP SCH (10:25)
[2021-11-10 10:34] LABS: ALBUMIN 1.4 g/dl (3.4-5.0)
[2021-11-10 10:36] LABS: BILIRUBIN,TOTAL 0.6 mg/dL (0.2-1)
[2021-11-10 10:37] LABS: BLOOD UREA NITROGEN 63.3 mg/dL (7-18)
[2021-11-10 10:38] LABS: MAGNESIUM 2.4 mg/dL (1.8-2.4)
[2021-11-10] MEDS: NOREPINEPHRINE D5W PREMIX 16,000 MCG/500 ML BAG IVPB SCH (11:00)
[2021-11-10] MEDS ORDERED: SODIUM CHLORIDE 1,000 ML IV SCH (11:00)
[2021-11-10] MEDS ORDERED: VECURONIUM BROMIDE 50 MG/50 ML VIAL IVPUSH ONE (14:11)
[2021-11-10] MEDS ORDERED: PROPOFOL 200 MG/20 ML VIAL IVPUSH ONE ×2 (14:11)
[2021-11-10] MEDS ORDERED: PROPOFOL 20 ML ONE (14:12)
[2021-11-10] MEDS ORDERED: ROCURONIUM BROMIDE 50 MG/5 ML VIAL ONE (14:13)
[2021-11-10] MEDS ORDERED: ROCURONIUM BROMIDE 50 MG/5 ML VIAL IV ONE (14:16)
[2021-11-10] MEDS: MIDODRINE HCL 2.5 MG TABLET PO SCH ×3 (16:35→17:28)
[2021-11-10] MEDS: CHLORHEXIDINE GLUCONATE 4% CLEANSER FOR DECOLONIZATION TP SCH (21:52)
[2021-11-11] MEDS: BANATROL PLUS POWDER PACKET PO SCH ×3 (05:41→22:02)
[2021-11-11 07:39] LABS: HEMATOCRIT 26.4 % (35.4-49); HEMOGLOBIN 8.8 GM/dL (11.7-16.9); MCH 28.9 pg (25.7-33.7); MCHC 33.4 g/dl (32.0-35.9); MEAN CELL VOLUME 86.5 fl (80-96); MEAN PLT VOLUME 8.1 fl (7.5-11.1); PLATELET COUNT 100 10^3/uL (134-434); RBC 3.05 M/mm3 (4.00-5.60); RDW 17.1 % (11.9-15.9); WHITE BLOOD COUNT 22.7 K/mm3 (4.0-10.0)
[2021-11-11 07:59] LABS: CALCIUM 8.3 mg/dL (8.5-10.1)
[2021-11-11 08:00] LABS: ALBUMIN 1.4 g/dl (3.4-5.0); BLOOD UREA NITROGEN 45.7 mg/dL (7-18)
[2021-11-11 08:03] LABS: CREATININE 1.7 mg/dL (0.55-1.3)
[2021-11-11 08:04] LABS: BILIRUBIN,TOTAL 0.7 mg/dL (0.2-1); TOT PROT 4.9 g/dl (6.4-8.2)
[2021-11-11] MEDS: PANTOPRAZOLE SODIUM 40 MG VIAL IVPUSH SCH (09:13)
[2021-11-11] MEDS: AMINO ACIDS/PROTEIN HYDROLYS 30 ML LIQUID.PKT PO SCH (09:14)
[2021-11-11 10:41] LABS: ANISOCYTOSIS 0; HELMET CELLS 0; HOWELL-JOLLY BODIES 0; MACROCYTOSIS 0; OVALOCYTE 0; ROULEAU 0; SICKELED CELLS 0; TARGET CELLS 0; TEAR DROP CELLS 0; TOXIC GRANULATION 0
[2021-11-11] MEDS: MIDODRINE HCL 2.5 MG TABLET PO SCH ×3 (13:16→18:37)
[2021-11-11] MEDS: COLLAGENASE CLOSTRIDIUM HIST. 30 GRAMS TUBE TP SCH (13:17)
[2021-11-11] MEDS: NOREPINEPHRINE D5W PREMIX 16,000 MCG/500 ML BAG IVPB SCH (13:17)
[2021-11-11] MEDS: CHLORHEXIDINE GLUCONATE 4% CLEANSER FOR DECOLONIZATION TP SCH (22:02)
[2021-11-12 06:46] LABS: HEMATOCRIT 25.9 % (35.4-49); HEMOGLOBIN 8.4 GM/dL (11.7-16.9); MCH 28.4 pg (25.7-33.7); MCHC 32.6 g/dl (32.0-35.9); MEAN PLT VOLUME 7.6 fl (7.5-11.1); PLATELET COUNT 129 10^3/uL (134-434); RBC 2.98 M/mm3 (4.00-5.60); RDW 17.1 % (11.9-15.9); WHITE BLOOD COUNT 18.3 K/mm3 (4.0-10.0)
[2021-11-12 07:25] LABS: ALBUMIN 1.3 g/dl (3.4-5.0); CALCIUM 8.7 mg/dL (8.5-10.1); MAGNESIUM 2.1 mg/dL (1.8-2.4)
[2021-11-12 07:26] LABS: BLOOD UREA NITROGEN 57.8 mg/dL (7-18)
[2021-11-12 07:28] LABS: PHOSPHOROUS 3.5 mg/dL (2.5-4.9)
[2021-11-12 07:29] LABS: CREATININE 2.1 mg/dL (0.55-1.3)
[2021-11-12 07:30] LABS: BILIRUBIN,TOTAL 0.8 mg/dL (0.2-1)
[2021-11-12 07:52] LABS: ANISOCYTOSIS 2+; MACROCYTOSIS 0; OVALOCYTE 2+; TOXIC GRANULATION 2+
[2021-11-12] MEDS: AMINO ACIDS/PROTEIN HYDROLYS 30 ML LIQUID.PKT PO SCH (08:00)
[2021-11-12] MEDS: ALBUMIN HUMAN 25% 12.5 GM/50 ML VIAL IV SCH ×3 (10:00→12:54)
[2021-11-12] MEDS: MIDODRINE HCL 2.5 MG TABLET PO SCH ×3 (10:00→18:56)
[2021-11-12] MEDS: EPOETIN ALFA-EPBX 10,000 UNIT/ML VIAL IVPUSH SCH (10:52)
[2021-11-12] MEDS: PANTOPRAZOLE SODIUM 40 MG VIAL IVPUSH SCH (14:00)
[2021-11-12] MEDS: BANATROL PLUS POWDER PACKET PO SCH ×2 (14:30→21:25)
[2021-11-12] MEDS: COLLAGENASE CLOSTRIDIUM HIST. 30 GRAMS TUBE TP SCH (16:00)
[2021-11-12] MEDS: CHLORHEXIDINE GLUCONATE 4% CLEANSER FOR DECOLONIZATION TP SCH (21:25)
[2021-11-13] MEDS: BANATROL PLUS POWDER PACKET PO SCH ×3 (06:40→21:27)
[2021-11-13] MEDS: AMINO ACIDS/PROTEIN HYDROLYS 30 ML LIQUID.PKT PO SCH (11:00)
[2021-11-13] MEDS: MIDODRINE HCL 2.5 MG TABLET PO SCH ×2 (11:00→14:30)
[2021-11-13] MEDS: PANTOPRAZOLE SODIUM 40 MG VIAL IVPUSH SCH (11:00)
[2021-11-13] MEDS: COLLAGENASE CLOSTRIDIUM HIST. 30 GRAMS TUBE TP SCH (11:40)
[2021-11-13] MEDS: CHLORHEXIDINE GLUCONATE 4% CLEANSER FOR DECOLONIZATION TP SCH (21:27)
[2021-11-14] MEDS: BANATROL PLUS POWDER PACKET PO SCH ×3 (06:27→23:10)
[2021-11-14] MEDS: MIDODRINE HCL 2.5 MG TABLET PO SCH ×2 (09:33→10:25)
[2021-11-14] MEDS: PANTOPRAZOLE SODIUM 40 MG VIAL IVPUSH SCH (09:33)
[2021-11-14] MEDS: AMINO ACIDS/PROTEIN HYDROLYS 30 ML LIQUID.PKT PO SCH (09:33)
[2021-11-14] MEDS: COLLAGENASE CLOSTRIDIUM HIST. 30 GRAMS TUBE TP SCH (09:34)
[2021-11-14] MEDS: LABETALOL HCL 5 MG/1 ML (100MG/20 ML VIAL) IVPUSH PRN (17:01)
[2021-11-14] MEDS: CHLORHEXIDINE GLUCONATE 4% CLEANSER FOR DECOLONIZATION TP SCH (23:10)
[2021-11-15] MEDS: BANATROL PLUS POWDER PACKET PO SCH ×3 (05:18→21:57)
[2021-11-15 07:35] LABS: HEMOGLOBIN 7.6 GM/dL (11.7-16.9); MCHC 33.3 g/dl (32.0-35.9); MEAN CELL VOLUME 87.1 fl (80-96); MEAN PLT VOLUME 7.5 fl (7.5-11.1); PLATELET COUNT 202 10^3/uL (134-434); RBC 2.64 M/mm3 (4.00-5.60); RDW 16.8 % (11.9-15.9); WHITE BLOOD COUNT 14.7 K/mm3 (4.0-10.0)
[2021-11-15 07:53] LABS: ALBUMIN 1.3 g/dl (3.4-5.0); BLOOD UREA NITROGEN 80.1 mg/dL (7-18); CALCIUM 8.9 mg/dL (8.5-10.1)
[2021-11-15 07:56] LABS: CREATININE 2.5 mg/dL (0.55-1.3)
[2021-11-15 07:58] LABS: BILIRUBIN,TOTAL 0.7 mg/dL (0.2-1); TOT PROT 4.8 g/dl (6.4-8.2)
[2021-11-15] MEDS: PANTOPRAZOLE SODIUM 40 MG VIAL IVPUSH SCH (09:34)
[2021-11-15] MEDS: COLLAGENASE CLOSTRIDIUM HIST. 30 GRAMS TUBE TP SCH (09:34)
[2021-11-15] MEDS: AMINO ACIDS/PROTEIN HYDROLYS 30 ML LIQUID.PKT PO SCH (09:34)
[2021-11-15 10:32] LABS: ANISOCYTOSIS 2+; MACROCYTOSIS 0; OVALOCYTE 1+
[2021-11-15] MEDS: LABETALOL HCL 5 MG/1 ML (100MG/20 ML VIAL) IVPUSH PRN ×2 (19:51→19:53)
[2021-11-15] MEDS: CHLORHEXIDINE GLUCONATE 4% CLEANSER FOR DECOLONIZATION TP SCH (21:57)
[2021-11-16] MEDS: BANATROL PLUS POWDER PACKET PO SCH ×3 (06:08→22:10)
[2021-11-16] MEDS: AMINO ACIDS/PROTEIN HYDROLYS 30 ML LIQUID.PKT PO SCH (08:32)
[2021-11-16] MEDS: PANTOPRAZOLE SODIUM 40 MG VIAL IVPUSH SCH (09:51)
[2021-11-16] MEDS: COLLAGENASE CLOSTRIDIUM HIST. 30 GRAMS TUBE TP SCH (09:52)
[2021-11-16] MEDS: amLODIPine BESYLATE 5 MG TABLET (FP) PO SCH (11:58)
[2021-11-16] MEDS ORDERED: EPOETIN ALFA-EPBX 10,000 UNIT/ML VIAL IVPUSH ONE (16:30)
[2021-11-16] MEDS ORDERED: CHLORHEXIDINE GLUCONATE 4% CLEANSER FOR DECOLONIZATION TP SCH (22:00)
[2021-11-17] MEDS: BANATROL PLUS POWDER PACKET PO SCH ×3 (05:38→21:47)
[2021-11-17] MEDS: PANTOPRAZOLE SODIUM 40 MG VIAL IVPUSH SCH (10:26)
[2021-11-17] MEDS: amLODIPine BESYLATE 5 MG TABLET (FP) PO SCH (10:26)
[2021-11-17] MEDS: AMINO ACIDS/PROTEIN HYDROLYS 30 ML LIQUID.PKT PO SCH (10:26)
[2021-11-17] MEDS ORDERED: amLODIPine BESYLATE 5 MG TABLET (FP) PO ONE (11:45)
[2021-11-17] MEDS: COLLAGENASE CLOSTRIDIUM HIST. 30 GRAMS TUBE TP SCH (14:50)
[2021-11-18] MEDS: BANATROL PLUS POWDER PACKET PO SCH ×3 (06:00→21:57)
[2021-11-18] MEDS ORDERED: SODIUM CHLORIDE 250 ML IV PRN (10:00)
[2021-11-18] MEDS ORDERED: amLODIPine BESYLATE 10 MG TABLET (FP) PO SCH (10:00)
[2021-11-18] MEDS ORDERED: EPOETIN ALFA-EPBX 10,000 UNIT/ML VIAL SQ ONE (10:46)
[2021-11-18 10:51] LABS: HEMATOCRIT 22.1 % (35.4-49); HEMOGLOBIN 7.3 GM/dL (11.7-16.9); MCH 28.9 pg (25.7-33.7); MCHC 33.1 g/dl (32.0-35.9); MEAN CELL VOLUME 87.1 fl (80-96); MEAN PLT VOLUME 7.5 fl (7.5-11.1); PLATELET COUNT 286 10^3/uL (134-434); RBC 2.54 M/mm3 (4.00-5.60); RDW 17.1 % (11.9-15.9); WHITE BLOOD COUNT 10.4 K/mm3 (4.0-10.0)
[2021-11-18 11:10] LABS: CALCIUM 8.6 mg/dL (8.5-10.1)
[2021-11-18 11:11] LABS: BLOOD UREA NITROGEN 85.5 mg/dL (7-18)
[2021-11-18 11:14] LABS: CREATININE 2.4 mg/dL (0.55-1.3); PHOSPHOROUS 3.3 mg/dL (2.5-4.9)
[2021-11-18] MEDS: COLLAGENASE CLOSTRIDIUM HIST. 30 GRAMS TUBE TP SCH (11:23)
[2021-11-18] MEDS: amLODIPine BESYLATE 10 MG TABLET (FP) NGT SCH (11:23)
[2021-11-18] MEDS: AMINO ACIDS/PROTEIN HYDROLYS 30 ML LIQUID.PKT PO SCH (11:23)
[2021-11-18] MEDS: PANTOPRAZOLE SODIUM 40 MG VIAL IVPUSH SCH (11:23)
[2021-11-19] MEDS: ACETAMINOPHEN 650 MG/20.3 ML ORAL SOLUTION (CUPS) NGT PRN ×2 (04:12→22:23)
[2021-11-19] MEDS: BANATROL PLUS POWDER PACKET PO SCH ×3 (05:58→22:14)
[2021-11-19] MEDS: amLODIPine BESYLATE 10 MG TABLET (FP) NGT SCH (11:37)
[2021-11-19] MEDS: PANTOPRAZOLE SODIUM 40 MG VIAL IVPUSH SCH (11:37)
[2021-11-19] MEDS: AMINO ACIDS/PROTEIN HYDROLYS 30 ML LIQUID.PKT PO SCH (11:37)
[2021-11-19] MEDS: COLLAGENASE CLOSTRIDIUM HIST. 30 GRAMS TUBE TP SCH ×2 (11:39→15:35)
[2021-11-19 12:45] LABS: HEMATOCRIT 21.6 % (35.4-49); HEMOGLOBIN 7.3 GM/dL (11.7-16.9); MCH 29.4 pg (25.7-33.7); MCHC 33.5 g/dl (32.0-35.9); MEAN CELL VOLUME 87.5 fl (80-96); MEAN PLT VOLUME 7.4 fl (7.5-11.1); PLATELET COUNT 296 10^3/uL (134-434); RBC 2.47 M/mm3 (4.00-5.60); RDW 18.1 % (11.9-15.9); WHITE BLOOD COUNT 9.8 K/mm3 (4.0-10.0)
[2021-11-19 12:52] LABS: INR 1.25 (0.83-1.09); PROTHROMBIN TIME (PATIENT) 14.4 SEC (9.7-13.0)
[2021-11-19 12:55] LABS: ACTIVATED PTT 26.3 SECONDS (25.2-36.5)
[2021-11-19] MEDS ORDERED: SODIUM CHLORIDE 250 ML IV PRN (13:54)
[2021-11-19 13:56] LABS: ANISOCYTOSIS 0; MACROCYTOSIS 0
[2021-11-19] MEDS ORDERED: LIDOCAINE HCL 1%, 10 MG/ML (20ML VIAL) ONE ×2 (14:14→15:47)
[2021-11-19] MEDS ORDERED: HEPARIN NA (PORCINE) 5,000 UNITS/ML 1ML VIAL ONE (15:47)
[2021-11-19] MEDS ORDERED: ceFAZolin SODIUM 1 GM VIAL IVPB ONE (16:37)
[2021-11-19] MEDS ORDERED: LIDOCAINE HCL 1%, 10 MG/ML (20ML VIAL) INF ONE ×2 (16:38)
[2021-11-20] MEDS: BANATROL PLUS POWDER PACKET PO SCH ×3 (05:05→21:39)
[2021-11-20] MEDS: EPOETIN ALFA-EPBX 10,000 UNIT/ML VIAL IVPUSH SCH (07:40)
[2021-11-20] MEDS: amLODIPine BESYLATE 10 MG TABLET (FP) NGT SCH (09:13)
[2021-11-20] MEDS: AMINO ACIDS/PROTEIN HYDROLYS 30 ML LIQUID.PKT PO SCH (09:13)
[2021-11-20] MEDS: PANTOPRAZOLE SODIUM 40 MG VIAL IVPUSH SCH (09:13)
[2021-11-20 13:40] LABS: HEMATOCRIT 24.5 % (35.4-49); HEMOGLOBIN 8.1 GM/dL (11.7-16.9); MCH 28.9 pg (25.7-33.7); MCHC 32.9 g/dl (32.0-35.9); MEAN CELL VOLUME 87.6 fl (80-96); MEAN PLT VOLUME 7.5 fl (7.5-11.1); PLATELET COUNT 511 10^3/uL (134-434); RDW 18.1 % (11.9-15.9); WHITE BLOOD COUNT 17.3 K/mm3 (4.0-10.0)
[2021-11-20] MEDS ORDERED: EPOETIN ALFA-EPBX 10,000 UNIT/ML VIAL SQ ONE (13:54)
[2021-11-20 14:20] LABS: CALCIUM 9.2 mg/dL (8.5-10.1)
[2021-11-20 14:21] LABS: BLOOD UREA NITROGEN 78.6 mg/dL (7-18)
[2021-11-20 14:24] LABS: CREATININE 2.4 mg/dL (0.55-1.3)
[2021-11-20] MEDS: COLLAGENASE CLOSTRIDIUM HIST. 30 GRAMS TUBE TP SCH (16:51)
[2021-11-20] MEDS: ACETAMINOPHEN 650 MG/20.3 ML ORAL SOLUTION (CUPS) NGT PRN (16:58)
[2021-11-21] MEDS ORDERED: VANCOMYCIN 1 GM/200 ML PREMIX BAG IVPB ONE (01:07)
[2021-11-21] MEDS: PIPERACILLIN/TAZOB 2.25 GM 2.25 GM in DEXTROSE 5%-WATER - 50 ML IVPB SCH ×2 (04:56→12:19)
[2021-11-21] MEDS: BANATROL PLUS POWDER PACKET PO SCH ×3 (05:08→23:27)
[2021-11-21] MEDS: AMINO ACIDS/PROTEIN HYDROLYS 30 ML LIQUID.PKT PO SCH (08:30)
[2021-11-21] MEDS: PANTOPRAZOLE SODIUM 40 MG VIAL IVPUSH SCH (12:19)
[2021-11-21] MEDS: amLODIPine BESYLATE 10 MG TABLET (FP) NGT SCH (12:19)
[2021-11-21] MEDS: COLLAGENASE CLOSTRIDIUM HIST. 30 GRAMS TUBE TP SCH (14:16)
[2021-11-22] MEDS: PIPERACILLIN/TAZOB 2.25 GM 2.25 GM in DEXTROSE 5%-WATER - 50 ML IVPB SCH ×3 (06:02→17:17)
[2021-11-22] MEDS: BANATROL PLUS POWDER PACKET PO SCH ×3 (06:02→21:45)
[2021-11-22] MEDS: PANTOPRAZOLE SODIUM 40 MG VIAL IVPUSH SCH (10:30)
[2021-11-22] MEDS: amLODIPine BESYLATE 10 MG TABLET (FP) NGT SCH (10:30)
[2021-11-22] MEDS: AMINO ACIDS/PROTEIN HYDROLYS 30 ML LIQUID.PKT PO SCH (10:30)
[2021-11-22] MEDS: COLLAGENASE CLOSTRIDIUM HIST. 30 GRAMS TUBE TP SCH (10:31)
[2021-11-22] MEDS ORDERED: SODIUM CHLORIDE 250 ML IV PRN (11:39)
[2021-11-22] MEDS ORDERED: EPOETIN ALFA-EPBX 10,000 UNIT/ML VIAL SQ ONE (13:30)
[2021-11-22 13:51] LABS: HEMATOCRIT 18.9 % (35.4-49); MCH 29.3 pg (25.7-33.7); MEAN CELL VOLUME 88.7 fl (80-96); PLATELET COUNT 238 10^3/uL (134-434); RBC 2.14 M/mm3 (4.00-5.60); RDW 18.7 % (11.9-15.9); WHITE BLOOD COUNT 7.9 K/mm3 (4.0-10.0)
[2021-11-22 14:08] LABS: HEMOGLOBIN 6.3 GM/dL (11.7-16.9)
[2021-11-22 14:20] LABS: CREATININE 1.5 mg/dL (0.55-1.3)
[2021-11-22 14:27] LABS: BLOOD UREA NITROGEN 51.9 mg/dL (7-18); CALCIUM 7.7 mg/dL (8.5-10.1)
[2021-11-22] MEDS: VANCOMYCIN 250 MG/5 ML ORAL SOLUTION NGT SCH ×3 (16:26→23:32)
[2021-11-22] MEDS ORDERED: PIPERACILLIN/TAZOB 2.25 GM 2.25 GM in DEXTROSE 5%-WATER - 50 ML IVPB SCH (18:00)
[2021-11-23] MEDS: PIPERACILLIN/TAZOB 2.25 GM 2.25 GM in DEXTROSE 5%-WATER - 50 ML IVPB SCH ×3 (01:41→18:55)
[2021-11-23] MEDS: BANATROL PLUS POWDER PACKET PO SCH ×3 (05:15→22:07)
[2021-11-23] MEDS: VANCOMYCIN 250 MG/5 ML ORAL SOLUTION NGT SCH ×4 (05:16→22:08)
[2021-11-23 10:40] LABS: HEMOGLOBIN 8.2 GM/dL (11.7-16.9); MCH 28.3 pg (25.7-33.7); MCHC 32.7 g/dl (32.0-35.9); MEAN CELL VOLUME 86.7 fl (80-96); MEAN PLT VOLUME 7.4 fl (7.5-11.1); PLATELET COUNT 233 10^3/uL (134-434); RBC 2.89 M/mm3 (4.00-5.60); WHITE BLOOD COUNT 16.7 K/mm3 (4.0-10.0)
[2021-11-23 11:42] LABS: ANISOCYTOSIS 2+; MACROCYTOSIS 0
[2021-11-23] MEDS: AMINO ACIDS/PROTEIN HYDROLYS 30 ML LIQUID.PKT PO SCH (11:57)
[2021-11-23] MEDS: amLODIPine BESYLATE 10 MG TABLET (FP) NGT SCH (11:57)
[2021-11-23] MEDS: PANTOPRAZOLE SODIUM 40 MG VIAL IVPUSH SCH (11:57)
[2021-11-23] MEDS: COLLAGENASE CLOSTRIDIUM HIST. 30 GRAMS TUBE TP SCH (11:58)
[2021-11-24] MEDS: VANCOMYCIN 250 MG/5 ML ORAL SOLUTION NGT SCH ×5 (00:26→23:12)
[2021-11-24] MEDS: PIPERACILLIN/TAZOB 2.25 GM 2.25 GM in DEXTROSE 5%-WATER - 50 ML IVPB SCH ×3 (02:04→18:47)
[2021-11-24] MEDS: BANATROL PLUS POWDER PACKET PO SCH ×3 (05:32→21:05)
[2021-11-24] MEDS ORDERED: EPOETIN ALFA-EPBX 10,000 UNIT/ML VIAL IVPUSH ONE (09:00)
[2021-11-24] MEDS ORDERED: SODIUM CHLORIDE 250 ML IV PRN (09:00)
[2021-11-24] MEDS: AMINO ACIDS/PROTEIN HYDROLYS 30 ML LIQUID.PKT PO SCH (12:39)
[2021-11-24] MEDS: amLODIPine BESYLATE 10 MG TABLET (FP) NGT SCH (12:39)
[2021-11-24] MEDS: PANTOPRAZOLE SODIUM 40 MG VIAL IVPUSH SCH (12:54)
[2021-11-24] MEDS: COLLAGENASE CLOSTRIDIUM HIST. 30 GRAMS TUBE TP SCH (12:54)
[2021-11-25] MEDS: PIPERACILLIN/TAZOB 2.25 GM 2.25 GM in DEXTROSE 5%-WATER - 50 ML IVPB SCH ×2 (02:19→09:54)
[2021-11-25] MEDS: BANATROL PLUS POWDER PACKET PO SCH ×3 (06:48→23:22)
[2021-11-25] MEDS: VANCOMYCIN 250 MG/5 ML ORAL SOLUTION NGT SCH ×4 (06:48→23:49)
[2021-11-25] MEDS: AMINO ACIDS/PROTEIN HYDROLYS 30 ML LIQUID.PKT PO SCH (09:56)
[2021-11-25] MEDS: PANTOPRAZOLE SODIUM 40 MG VIAL IVPUSH SCH (09:56)
[2021-11-25] MEDS: amLODIPine BESYLATE 10 MG TABLET (FP) NGT SCH (09:56)
[2021-11-25 12:55] LABS: BASO % 0.3 % (0-2.0); HEMATOCRIT 24.5 % (35.4-49); HEMOGLOBIN 8.3 GM/dL (11.7-16.9); LYMPH % 8.8 % (8-40); MCH 29.5 pg (25.7-33.7); MCHC 33.8 g/dl (32.0-35.9); MEAN CELL VOLUME 87.1 fl (80-96); MEAN PLT VOLUME 7.3 fl (7.5-11.1); MONO % 6.2 % (3.8-10.2); NEUT % 83.7 % (42.8-82.8); PLATELET COUNT 213 10^3/uL (134-434); RBC 2.81 M/mm3 (4.00-5.60); RDW 19.8 % (11.9-15.9); WHITE BLOOD COUNT 14.8 K/mm3 (4.0-10.0)
[2021-11-25] MEDS: COLLAGENASE CLOSTRIDIUM HIST. 30 GRAMS TUBE TP SCH (13:44)
[2021-11-26] MEDS: BANATROL PLUS POWDER PACKET PO SCH ×3 (06:01→22:42)
[2021-11-26] MEDS: VANCOMYCIN 250 MG/5 ML ORAL SOLUTION NGT SCH ×3 (06:02→17:37)
[2021-11-26] MEDS ORDERED: SODIUM CHLORIDE 250 ML IV PRN (10:52)
[2021-11-26] MEDS ORDERED: EPOETIN ALFA-EPBX 10,000 UNIT/ML VIAL SQ ONE (10:57)
[2021-11-26 11:10] LABS: HEMATOCRIT 24.3 % (35.4-49); HEMOGLOBIN 8.2 GM/dL (11.7-16.9); MCH 29.7 pg (25.7-33.7); MCHC 33.8 g/dl (32.0-35.9); MEAN CELL VOLUME 87.8 fl (80-96); MEAN PLT VOLUME 7.2 fl (7.5-11.1); PLATELET COUNT 246 10^3/uL (134-434); RBC 2.77 M/mm3 (4.00-5.60); RDW 19.8 % (11.9-15.9); WHITE BLOOD COUNT 14.7 K/mm3 (4.0-10.0)
[2021-11-26 11:35] LABS: BLOOD UREA NITROGEN 76.5 mg/dL (7-18); CALCIUM 8.7 mg/dL (8.5-10.1)
[2021-11-26 11:36] LABS: ALBUMIN 1.4 g/dl (3.4-5.0)
[2021-11-26 11:39] LABS: CREATININE 2.6 mg/dL (0.55-1.3)
[2021-11-26 11:40] LABS: BILIRUBIN,TOTAL 0.3 mg/dL (0.2-1); TOT PROT 4.9 g/dl (6.4-8.2)
[2021-11-26] MEDS: PANTOPRAZOLE SODIUM 40 MG VIAL IVPUSH SCH (14:10)
[2021-11-26] MEDS: COLLAGENASE CLOSTRIDIUM HIST. 30 GRAMS TUBE TP SCH (14:10)
[2021-11-26] MEDS: AMINO ACIDS/PROTEIN HYDROLYS 30 ML LIQUID.PKT PO SCH ×2 (14:10→17:37)
[2021-11-26] MEDS: amLODIPine BESYLATE 10 MG TABLET (FP) NGT SCH (14:11)
[2021-11-27] MEDS: VANCOMYCIN 250 MG/5 ML ORAL SOLUTION NGT SCH ×4 (01:01→17:46)
[2021-11-27] MEDS: AMINO ACIDS/PROTEIN HYDROLYS 30 ML LIQUID.PKT PO SCH ×2 (08:35→17:45)
[2021-11-27] MEDS: PANTOPRAZOLE SODIUM 40 MG VIAL IVPUSH SCH (08:59)
[2021-11-27] MEDS: amLODIPine BESYLATE 10 MG TABLET (FP) NGT SCH (08:59)
[2021-11-27] MEDS: COLLAGENASE CLOSTRIDIUM HIST. 30 GRAMS TUBE TP SCH (10:48)
[2021-11-27] MEDS: BANATROL PLUS POWDER PACKET PO SCH ×3 (13:19→22:01)
[2021-11-27] MEDS: METOPROLOL TARTRATE 25 MG TABLET (FP) NGT SCH ×2 (13:23→22:01)
[2021-11-28] MEDS: VANCOMYCIN 250 MG/5 ML ORAL SOLUTION NGT SCH ×5 (00:37→23:22)
[2021-11-28] MEDS: BANATROL PLUS POWDER PACKET PO SCH ×3 (05:26→22:31)
[2021-11-28] MEDS: AMINO ACIDS/PROTEIN HYDROLYS 30 ML LIQUID.PKT PO SCH ×2 (09:05→17:46)
[2021-11-28] MEDS: amLODIPine BESYLATE 10 MG TABLET (FP) NGT SCH (09:08)
[2021-11-28] MEDS: PANTOPRAZOLE SODIUM 40 MG VIAL IVPUSH SCH (09:08)
[2021-11-28] MEDS: METOPROLOL TARTRATE 25 MG TABLET (FP) NGT SCH (09:08)
[2021-11-28] MEDS ORDERED: SODIUM CHLORIDE 250 ML IV PRN (12:26)
[2021-11-28] MEDS: COLLAGENASE CLOSTRIDIUM HIST. 30 GRAMS TUBE TP SCH (12:39)
[2021-11-28] MEDS ORDERED: METOPROLOL TARTRATE 25 MG TABLET (FP) NGT ONE (13:13)
[2021-11-28] MEDS: METOPROLOL TARTRATE 50 MG TABLET (FP) NGT SCH ×2 (17:46→22:31)
[2021-11-29] MEDS: VANCOMYCIN 250 MG/5 ML ORAL SOLUTION NGT SCH (05:39)
[2021-11-29] MEDS: BANATROL PLUS POWDER PACKET PO SCH ×3 (05:39→22:44)
[2021-11-29] MEDS: AMINO ACIDS/PROTEIN HYDROLYS 30 ML LIQUID.PKT PO SCH (08:27)
[2021-11-29] MEDS: PANTOPRAZOLE SODIUM 40 MG VIAL IVPUSH SCH (10:15)
[2021-11-29] MEDS: amLODIPine BESYLATE 10 MG TABLET (FP) NGT SCH (10:15)
[2021-11-29] MEDS: METOPROLOL TARTRATE 50 MG TABLET (FP) NGT SCH ×3 (10:15→22:44)
[2021-11-29] MEDS: COLLAGENASE CLOSTRIDIUM HIST. 30 GRAMS TUBE TP SCH (10:16)
[2021-11-29] MEDS ORDERED: EPOETIN ALFA-EPBX 10,000 UNIT/ML VIAL IVPUSH ONE (15:00)
[2021-11-29 18:21] LABS: HEMATOCRIT 22.8 % (35.4-49); HEMOGLOBIN 7.5 GM/dL (11.7-16.9); MCH 29.2 pg (25.7-33.7); MCHC 33.1 g/dl (32.0-35.9); MEAN CELL VOLUME 88.3 fl (80-96); MEAN PLT VOLUME 7.8 fl (7.5-11.1); PLATELET COUNT 211 10^3/uL (134-434); RBC 2.58 M/mm3 (4.00-5.60); RDW 22.8 % (11.9-15.9); WHITE BLOOD COUNT 15.8 K/mm3 (4.0-10.0)
[2021-11-29 18:36] LABS: CHLORIDE 96 mmol/L (98-107); SODIUM 133 mmol/L (136-145)
[2021-11-29 18:37] LABS: CALCIUM 8.6 mg/dL (8.5-10.1)
[2021-11-29 18:38] LABS: ANION GAP 13 MMOL/L (8-16); CO2 24 mmol/L (21-32); GLUCOSE,RANDOM 118 mg/dL (74-106)
[2021-11-29 18:41] LABS: CREATININE 2.9 mg/dL (0.55-1.3); PHOSPHOROUS 4.6 mg/dL (2.5-4.9)
[2021-11-30] MEDS: BANATROL PLUS POWDER PACKET PO SCH ×3 (05:52→21:11)
[2021-11-30] MEDS: AMINO ACIDS/PROTEIN HYDROLYS 30 ML LIQUID.PKT PO SCH ×3 (07:42→17:34)
[2021-11-30] MEDS: amLODIPine BESYLATE 10 MG TABLET (FP) NGT SCH (10:11)
[2021-11-30] MEDS: METOPROLOL TARTRATE 50 MG TABLET (FP) NGT SCH ×2 (10:11→21:11)
[2021-11-30] MEDS: PANTOPRAZOLE SODIUM 40 MG VIAL IVPUSH SCH (10:11)
[2021-11-30] MEDS: COLLAGENASE CLOSTRIDIUM HIST. 30 GRAMS TUBE TP SCH (13:32)
[2021-12-01] MEDS: BANATROL PLUS POWDER PACKET PO SCH ×3 (05:22→21:03)
[2021-12-01] MEDS ORDERED: SODIUM CHLORIDE 250 ML IV PRN (08:43)
[2021-12-01] MEDS ORDERED: EPOETIN ALFA-EPBX 10,000 UNIT/ML VIAL IVPUSH ONE (08:45)
[2021-12-01] MEDS: AMINO ACIDS/PROTEIN HYDROLYS 30 ML LIQUID.PKT PO SCH ×2 (08:53→18:10)
[2021-12-01] MEDS: PANTOPRAZOLE SODIUM 40 MG VIAL IVPUSH SCH (12:10)
[2021-12-01] MEDS: METOPROLOL TARTRATE 50 MG TABLET (FP) NGT SCH ×2 (12:12→21:03)
[2021-12-01] MEDS: amLODIPine BESYLATE 10 MG TABLET (FP) NGT SCH (12:12)
[2021-12-01] MEDS: COLLAGENASE CLOSTRIDIUM HIST. 30 GRAMS TUBE TP SCH (13:02)
[2021-12-02] MEDS: BANATROL PLUS POWDER PACKET PO SCH ×3 (06:45→22:08)
[2021-12-02] MEDS: AMINO ACIDS/PROTEIN HYDROLYS 30 ML LIQUID.PKT PO SCH ×2 (09:02→17:03)
[2021-12-02] MEDS: METOPROLOL TARTRATE 50 MG TABLET (FP) NGT SCH ×2 (10:19→22:09)
[2021-12-02] MEDS: amLODIPine BESYLATE 10 MG TABLET (FP) NGT SCH (10:19)
[2021-12-02] MEDS: PANTOPRAZOLE SODIUM 40 MG VIAL IVPUSH SCH (10:19)
[2021-12-02] MEDS: COLLAGENASE CLOSTRIDIUM HIST. 30 GRAMS TUBE TP SCH (10:20)
[2021-12-03] MEDS: BANATROL PLUS POWDER PACKET PO SCH ×3 (05:56→21:42)
[2021-12-03] MEDS ORDERED: SODIUM CHLORIDE 250 ML IV PRN (09:00)
[2021-12-03] MEDS ORDERED: EPOETIN ALFA-EPBX 10,000 UNIT/ML VIAL IVPUSH ONE (09:00)
[2021-12-03] MEDS: AMINO ACIDS/PROTEIN HYDROLYS 30 ML LIQUID.PKT PO SCH ×2 (13:48→18:06)
[2021-12-03] MEDS: METOPROLOL TARTRATE 50 MG TABLET (FP) NGT SCH ×2 (13:57→21:42)
[2021-12-03] MEDS: PANTOPRAZOLE SODIUM 40 MG VIAL IVPUSH SCH (13:58)
[2021-12-03] MEDS: amLODIPine BESYLATE 10 MG TABLET (FP) NGT SCH (13:58)
[2021-12-03] MEDS: COLLAGENASE CLOSTRIDIUM HIST. 30 GRAMS TUBE TP SCH (13:58)
[2021-12-03] MEDS ORDERED: ALTEPLASE (CATHFLO) 2 MG/2 ML VIAL NR ONE ×2 (16:15)
[2021-12-04] MEDS: AMINO ACIDS/PROTEIN HYDROLYS 30 ML LIQUID.PKT PO SCH ×2 (12:31→16:39)
[2021-12-04] MEDS: PANTOPRAZOLE SODIUM 40 MG VIAL IVPUSH SCH (12:31)
[2021-12-04] MEDS: amLODIPine BESYLATE 10 MG TABLET (FP) NGT SCH (12:31)
[2021-12-04] MEDS: BANATROL PLUS POWDER PACKET PO SCH ×2 (12:31→22:14)
[2021-12-04] MEDS: COLLAGENASE CLOSTRIDIUM HIST. 30 GRAMS TUBE TP SCH (12:31)
[2021-12-04] MEDS: METOPROLOL TARTRATE 50 MG TABLET (FP) NGT SCH ×2 (12:31→22:15)
[2021-12-04] MEDS: NYSTATIN POWDER 100,000 UNITS/GM - 15 GM TOPICAL POWDER TP SCH ×2 (16:39→22:16)
[2021-12-05] MEDS: AMINO ACIDS/PROTEIN HYDROLYS 30 ML LIQUID.PKT PO SCH ×2 (09:05→18:34)
[2021-12-05] MEDS: METOPROLOL TARTRATE 50 MG TABLET (FP) NGT SCH ×2 (11:50→21:37)
[2021-12-05] MEDS: PANTOPRAZOLE SODIUM 40 MG VIAL IVPUSH SCH (11:50)
[2021-12-05] MEDS: COLLAGENASE CLOSTRIDIUM HIST. 30 GRAMS TUBE TP SCH (11:51)
[2021-12-05] MEDS: BANATROL PLUS POWDER PACKET PO SCH ×2 (11:51→21:37)
[2021-12-05] MEDS: NYSTATIN POWDER 100,000 UNITS/GM - 15 GM TOPICAL POWDER TP SCH ×2 (11:51→21:41)
[2021-12-05] MEDS: amLODIPine BESYLATE 10 MG TABLET (FP) NGT SCH (11:51)
[2021-12-05] MEDS: ACETAMINOPHEN 650 MG/20.3 ML ORAL SOLUTION (CUPS) NGT PRN (21:40)
[2021-12-06] MEDS: ALBUMIN HUMAN 25% 12.5 GM/50 ML VIAL IV SCH ×3 (09:00→11:10)
[2021-12-06 09:29] LABS: HEMATOCRIT 22.7 % (35.4-49); HEMOGLOBIN 7.3 GM/dL (11.7-16.9); MCH 29.3 pg (25.7-33.7); MCHC 32.3 g/dl (32.0-35.9); MEAN CELL VOLUME 90.8 fl (80-96); MEAN PLT VOLUME 7.5 fl (7.5-11.1); PLATELET COUNT 273 10^3/uL (134-434); RDW 21.6 % (11.9-15.9); WHITE BLOOD COUNT 14.5 K/mm3 (4.0-10.0)
[2021-12-06 09:59] LABS: BLOOD UREA NITROGEN 95.5 mg/dL (7-18)
[2021-12-06 10:00] LABS: CALCIUM 8.5 mg/dL (8.5-10.1)
[2021-12-06] MEDS ORDERED: SODIUM CHLORIDE 250 ML IV PRN (10:00)
[2021-12-06] MEDS ORDERED: EPOETIN ALFA-EPBX 10,000 UNIT/ML VIAL SQ ONE (10:00)
[2021-12-06 10:02] LABS: CREATININE 2.7 mg/dL (0.55-1.3)
[2021-12-06] MEDS: BANATROL PLUS POWDER PACKET PO SCH ×2 (12:17→21:39)
[2021-12-06] MEDS: AMINO ACIDS/PROTEIN HYDROLYS 30 ML LIQUID.PKT PO SCH ×2 (12:17→17:38)
[2021-12-06] MEDS: PANTOPRAZOLE SODIUM 40 MG VIAL IVPUSH SCH (12:18)
[2021-12-06] MEDS: METOPROLOL TARTRATE 50 MG TABLET (FP) NGT SCH ×2 (12:18→21:39)
[2021-12-06] MEDS: amLODIPine BESYLATE 10 MG TABLET (FP) NGT SCH (12:18)
[2021-12-06] MEDS: COLLAGENASE CLOSTRIDIUM HIST. 30 GRAMS TUBE TP SCH (12:19)
[2021-12-06] MEDS: NYSTATIN POWDER 100,000 UNITS/GM - 15 GM TOPICAL POWDER TP SCH ×2 (12:19→22:47)
[2021-12-07] MEDS: COLLAGENASE CLOSTRIDIUM HIST. 30 GRAMS TUBE TP SCH (11:05)
[2021-12-07] MEDS: METOPROLOL TARTRATE 50 MG TABLET (FP) NGT SCH ×2 (11:06→22:04)
[2021-12-07] MEDS: AMINO ACIDS/PROTEIN HYDROLYS 30 ML LIQUID.PKT PO SCH ×2 (11:06→18:35)
[2021-12-07] MEDS: PANTOPRAZOLE SODIUM 40 MG VIAL IVPUSH SCH (11:06)
[2021-12-07] MEDS: amLODIPine BESYLATE 10 MG TABLET (FP) NGT SCH (11:06)
[2021-12-07] MEDS: BANATROL PLUS POWDER PACKET PO SCH ×2 (11:06→22:03)
[2021-12-07] MEDS: NYSTATIN POWDER 100,000 UNITS/GM - 15 GM TOPICAL POWDER TP SCH ×2 (11:07→22:04)
[2021-12-07] MEDS: ACETAMINOPHEN 650 MG/20.3 ML ORAL SOLUTION (CUPS) NGT PRN (18:35)
[2021-12-08] MEDS ORDERED: EPOETIN ALFA 10,000 UNIT/1 ML VIAL IVPUSH ONE (08:30)
[2021-12-08] MEDS: AMINO ACIDS/PROTEIN HYDROLYS 30 ML LIQUID.PKT PO SCH ×2 (09:06→18:01)
[2021-12-08] MEDS: amLODIPine BESYLATE 10 MG TABLET (FP) NGT SCH (12:59)
[2021-12-08] MEDS: BANATROL PLUS POWDER PACKET PO SCH ×2 (12:59→23:05)
[2021-12-08] MEDS: METOPROLOL TARTRATE 50 MG TABLET (FP) NGT SCH ×2 (12:59→23:06)
[2021-12-08] MEDS: NYSTATIN POWDER 100,000 UNITS/GM - 15 GM TOPICAL POWDER TP SCH ×2 (12:59→22:06)
[2021-12-08] MEDS: PANTOPRAZOLE SODIUM 40 MG VIAL IVPUSH SCH (13:00)
[2021-12-08] MEDS: COLLAGENASE CLOSTRIDIUM HIST. 30 GRAMS TUBE TP SCH (13:00)
[2021-12-09] MEDS: AMINO ACIDS/PROTEIN HYDROLYS 30 ML LIQUID.PKT PO SCH ×3 (09:11→17:59)
[2021-12-09] MEDS: PANTOPRAZOLE SODIUM 40 MG VIAL IVPUSH SCH (09:13)
[2021-12-09] MEDS: NYSTATIN POWDER 100,000 UNITS/GM - 15 GM TOPICAL POWDER TP SCH (09:14)
[2021-12-09] MEDS: COLLAGENASE CLOSTRIDIUM HIST. 30 GRAMS TUBE TP SCH (09:15)
[2021-12-09] MEDS: amLODIPine BESYLATE 10 MG TABLET (FP) NGT SCH (09:59)
[2021-12-09] MEDS: BANATROL PLUS POWDER PACKET PO SCH (09:59)
[2021-12-09] MEDS: METOPROLOL TARTRATE 50 MG TABLET (FP) NGT SCH (09:59)
[2021-12-09] MEDS ORDERED: HEPARIN NA (PORCINE) 5,000 UNITS/ML 1ML VIAL ONE (15:14)
[2021-12-09] MEDS ORDERED: LIDOCAINE HCL 1%, 10 MG/ML (20ML VIAL) ONE (15:14)
[2021-12-09] MEDS ORDERED: PROPOFOL 20 ML ONE (16:04)
[2021-12-09] MEDS ORDERED: HEPARIN NA (PORCINE) 5,000 UNITS/ML 1ML VIAL SQ ONE (16:30)
[2021-12-09] MEDS ORDERED: HEPARIN NA (PORCINE) 1,000 UNITS/ML 10ML M-D VIAL SQ ONE (16:30)
[2021-12-09] MEDS ORDERED: LIDOCAINE HCL 1%, 10 MG/ML (20ML VIAL) INF ONE (16:30)
[2021-12-09] MEDS ORDERED: ACETAMINOPHEN 650 MG/20.3 ML ORAL SOLUTION (CUPS) NGT PRN (17:05)
[2021-12-10] MEDS: BANATROL PLUS POWDER PACKET PO SCH ×3 (00:25→23:17)
[2021-12-10] MEDS: METOPROLOL TARTRATE 50 MG TABLET (FP) NGT SCH ×3 (00:26→23:16)
[2021-12-10] MEDS: NYSTATIN POWDER 100,000 UNITS/GM - 15 GM TOPICAL POWDER TP SCH ×3 (00:26→23:17)
[2021-12-10] MEDS: AMINO ACIDS/PROTEIN HYDROLYS 30 ML LIQUID.PKT PO SCH ×2 (08:29→17:52)
[2021-12-10] MEDS ORDERED: GLUCAGON 1 MG KIT ONE (08:48)
[2021-12-10] MEDS ORDERED: MIDAZOLAM HCL 2 MG/2 ML SINGLE DOSE VIAL ONE (09:35)
[2021-12-10] MEDS: MIDAZOLAM HCL 2 MG/2 ML SINGLE DOSE VIAL IVPB SCH ×2 (09:45→09:52)
[2021-12-10] MEDS ORDERED: GLUCAGON 1 MG KIT IVPUSH ONE (09:46)
[2021-12-10] MEDS ORDERED: SODIUM CHLORIDE 250 ML IV PRN (12:08)
[2021-12-10] MEDS ORDERED: EPOETIN ALFA-EPBX 10,000 UNIT/ML VIAL IVPUSH ONE (13:00)
[2021-12-10] MEDS: amLODIPine BESYLATE 10 MG TABLET (FP) NGT SCH (17:51)
[2021-12-10] MEDS: COLLAGENASE CLOSTRIDIUM HIST. 30 GRAMS TUBE TP SCH (17:52)
[2021-12-10] MEDS: PANTOPRAZOLE SODIUM 40 MG VIAL IVPUSH SCH (17:52)
[2021-12-11] MEDS: METOPROLOL TARTRATE 50 MG TABLET (FP) NGT SCH (11:49)
[2021-12-11] MEDS: amLODIPine BESYLATE 10 MG TABLET (FP) NGT SCH (11:49)
[2021-12-11] MEDS: PANTOPRAZOLE SODIUM 40 MG VIAL IVPUSH SCH (11:50)
[2021-12-11] MEDS: NYSTATIN POWDER 100,000 UNITS/GM - 15 GM TOPICAL POWDER TP SCH ×2 (11:50→23:34)
[2021-12-11] MEDS: AMINO ACIDS/PROTEIN HYDROLYS 30 ML LIQUID.PKT PO SCH ×3 (11:50→19:05)
[2021-12-11] MEDS: BANATROL PLUS POWDER PACKET PO SCH ×2 (11:50→23:33)
[2021-12-11] MEDS: COLLAGENASE CLOSTRIDIUM HIST. 30 GRAMS TUBE TP SCH (11:50)
[2021-12-12] MEDS: METOPROLOL TARTRATE 50 MG TABLET (FP) NGT SCH ×3 (02:55→22:37)
[2021-12-12] MEDS: AMINO ACIDS/PROTEIN HYDROLYS 30 ML LIQUID.PKT PO SCH ×2 (09:26→18:54)
[2021-12-12] MEDS: BANATROL PLUS POWDER PACKET PO SCH ×2 (09:26→22:37)
[2021-12-12] MEDS: PANTOPRAZOLE SODIUM 40 MG VIAL IVPUSH SCH (09:27)
[2021-12-12] MEDS: amLODIPine BESYLATE 10 MG TABLET (FP) NGT SCH (09:27)
[2021-12-12 13:47] LABS: CALCIUM 8.8 mg/dL (8.5-10.1)
[2021-12-12 13:48] LABS: ALBUMIN 1.8 g/dl (3.4-5.0); BLOOD UREA NITROGEN 78.9 mg/dL (7-18)
[2021-12-12 13:52] LABS: BILIRUBIN,TOTAL 0.4 mg/dL (0.2-1); TOT PROT 5.4 g/dl (6.4-8.2)
[2021-12-12 13:58] LABS: CREATININE 2.6 mg/dL (0.55-1.3)
[2021-12-12] MEDS: NYSTATIN POWDER 100,000 UNITS/GM - 15 GM TOPICAL POWDER TP SCH ×2 (15:01→22:37)
[2021-12-12] MEDS: COLLAGENASE CLOSTRIDIUM HIST. 30 GRAMS TUBE TP SCH (15:01)
[2021-12-13] MEDS ORDERED: EPOETIN ALFA-EPBX 10,000 UNIT/ML VIAL SQ ONE (08:00)
[2021-12-13] MEDS ORDERED: SODIUM CHLORIDE 250 ML IV PRN (08:00)
[2021-12-13 09:06] LABS: BASO % 0.2 % (0-2.0); EOS % 0.9 % (0-4.5); HEMATOCRIT 26.2 % (35.4-49); HEMOGLOBIN 8.4 GM/dL (11.7-16.9); LYMPH % 9.4 % (8-40); MCH 28.8 pg (25.7-33.7); MCHC 31.9 g/dl (32.0-35.9); MEAN CELL VOLUME 90.4 fl (80-96); MEAN PLT VOLUME 6.6 fl (7.5-11.1); MONO % 5.2 % (3.8-10.2); NEUT % 84.3 % (42.8-82.8); PLATELET COUNT 290 10^3/uL (134-434); RDW 19.5 % (11.9-15.9); WHITE BLOOD COUNT 13.7 K/mm3 (4.0-10.0)
[2021-12-13 09:38] LABS: CALCIUM 8.6 mg/dL (8.5-10.1)
[2021-12-13 09:39] LABS: ALBUMIN 1.9 g/dl (3.4-5.0); BLOOD UREA NITROGEN 88.8 mg/dL (7-18); CREATININE 2.9 mg/dL (0.55-1.3)
[2021-12-13 09:40] LABS: BILIRUBIN,TOTAL 0.5 mg/dL (0.2-1); TOT PROT 5.7 g/dl (6.4-8.2)
[2021-12-13] MEDS: BANATROL PLUS POWDER PACKET PO SCH ×2 (11:58→23:10)
[2021-12-13] MEDS: amLODIPine BESYLATE 10 MG TABLET (FP) NGT SCH (11:59)
[2021-12-13] MEDS: METOPROLOL TARTRATE 50 MG TABLET (FP) NGT SCH ×2 (12:00→23:10)
[2021-12-13] MEDS: NYSTATIN POWDER 100,000 UNITS/GM - 15 GM TOPICAL POWDER TP SCH ×2 (12:00→23:10)
[2021-12-13] MEDS: AMINO ACIDS/PROTEIN HYDROLYS 30 ML LIQUID.PKT PO SCH ×2 (12:01→17:41)
[2021-12-13] MEDS: PANTOPRAZOLE SODIUM 40 MG VIAL IVPUSH SCH (16:00)
[2021-12-13] MEDS: COLLAGENASE CLOSTRIDIUM HIST. 30 GRAMS TUBE TP SCH (16:00)
[2021-12-14] MEDS: AMINO ACIDS/PROTEIN HYDROLYS 30 ML LIQUID.PKT PO SCH ×2 (08:47→17:23)
[2021-12-14] MEDS: PANTOPRAZOLE SODIUM 40 MG VIAL IVPUSH SCH (10:47)
[2021-12-14] MEDS: METOPROLOL TARTRATE 50 MG TABLET (FP) NGT SCH ×2 (10:47→21:18)
[2021-12-14] MEDS: BANATROL PLUS POWDER PACKET PO SCH ×2 (10:47→21:18)
[2021-12-14] MEDS: amLODIPine BESYLATE 10 MG TABLET (FP) NGT SCH (10:48)
[2021-12-14] MEDS: NYSTATIN POWDER 100,000 UNITS/GM - 15 GM TOPICAL POWDER TP SCH ×2 (10:49→21:18)
[2021-12-14] MEDS: COLLAGENASE CLOSTRIDIUM HIST. 30 GRAMS TUBE TP SCH (13:52)
[2021-12-15] MEDS ORDERED: SODIUM CHLORIDE 250 ML IV PRN (07:33)
[2021-12-15] MEDS ORDERED: EPOETIN ALFA-EPBX 10,000 UNIT/ML VIAL SQ ONE (09:00)
[2021-12-15] MEDS: BANATROL PLUS POWDER PACKET PO SCH ×2 (11:34→21:56)
[2021-12-15] MEDS: PANTOPRAZOLE SODIUM 40 MG VIAL IVPUSH SCH (11:34)
[2021-12-15] MEDS: AMINO ACIDS/PROTEIN HYDROLYS 30 ML LIQUID.PKT PO SCH ×2 (11:34→17:34)
[2021-12-15] MEDS: amLODIPine BESYLATE 10 MG TABLET (FP) NGT SCH (11:35)
[2021-12-15] MEDS: METOPROLOL TARTRATE 50 MG TABLET (FP) NGT SCH ×2 (11:35→21:56)
[2021-12-15] MEDS: NYSTATIN POWDER 100,000 UNITS/GM - 15 GM TOPICAL POWDER TP SCH ×2 (11:50→21:57)
[2021-12-15] MEDS: COLLAGENASE CLOSTRIDIUM HIST. 30 GRAMS TUBE TP SCH (11:50)
[2021-12-16] MEDS: PANTOPRAZOLE SODIUM 40 MG VIAL IVPUSH SCH (10:18)
[2021-12-16] MEDS: AMINO ACIDS/PROTEIN HYDROLYS 30 ML LIQUID.PKT PO SCH ×2 (10:19→18:07)
[2021-12-16] MEDS: BANATROL PLUS POWDER PACKET PO SCH ×2 (10:19→22:01)
[2021-12-16] MEDS: amLODIPine BESYLATE 10 MG TABLET (FP) NGT SCH (10:19)
[2021-12-16] MEDS: METOPROLOL TARTRATE 50 MG TABLET (FP) NGT SCH ×2 (10:19→22:01)
[2021-12-16] MEDS: COLLAGENASE CLOSTRIDIUM HIST. 30 GRAMS TUBE TP SCH (10:21)
[2021-12-16] MEDS: NYSTATIN POWDER 100,000 UNITS/GM - 15 GM TOPICAL POWDER TP SCH ×2 (10:21→22:01)
[2021-12-17] MEDS ORDERED: EPOETIN ALFA-EPBX 10,000 UNIT/ML VIAL IVPUSH ONE (08:00)
[2021-12-17] MEDS: METOPROLOL TARTRATE 50 MG TABLET (FP) NGT SCH ×2 (11:56→21:31)
[2021-12-17] MEDS: AMINO ACIDS/PROTEIN HYDROLYS 30 ML LIQUID.PKT PO SCH ×2 (11:57→18:06)
[2021-12-17] MEDS: BANATROL PLUS POWDER PACKET PO SCH ×2 (11:57→21:30)
[2021-12-17] MEDS: amLODIPine BESYLATE 10 MG TABLET (FP) NGT SCH (11:58)
[2021-12-17] MEDS: PANTOPRAZOLE SODIUM 40 MG VIAL IVPUSH SCH (11:58)
[2021-12-17] MEDS: NYSTATIN POWDER 100,000 UNITS/GM - 15 GM TOPICAL POWDER TP SCH ×2 (11:59→21:31)
[2021-12-17] MEDS: COLLAGENASE CLOSTRIDIUM HIST. 30 GRAMS TUBE TP SCH (12:00)
[2021-12-18] MEDS: AMINO ACIDS/PROTEIN HYDROLYS 30 ML LIQUID.PKT PO SCH ×2 (09:38→16:48)
[2021-12-18] MEDS: BANATROL PLUS POWDER PACKET PO SCH ×2 (09:38→21:55)
[2021-12-18] MEDS: PANTOPRAZOLE SODIUM 40 MG VIAL IVPUSH SCH (09:38)
[2021-12-18] MEDS: METOPROLOL TARTRATE 50 MG TABLET (FP) NGT SCH ×2 (09:39→21:54)
[2021-12-18] MEDS: amLODIPine BESYLATE 10 MG TABLET (FP) NGT SCH (09:39)
[2021-12-18] MEDS: NYSTATIN POWDER 100,000 UNITS/GM - 15 GM TOPICAL POWDER TP SCH ×2 (15:09→21:55)
[2021-12-18] MEDS: COLLAGENASE CLOSTRIDIUM HIST. 30 GRAMS TUBE TP SCH (15:09)
[2021-12-19 09:42] LABS: ALBUMIN 1.7 g/dl (3.4-5.0); BLOOD UREA NITROGEN 66.2 mg/dL (7-18); CALCIUM 8.5 mg/dL (8.5-10.1)
[2021-12-19 09:45] LABS: PHOSPHOROUS 2.4 mg/dL (2.5-4.9)
[2021-12-19 09:46] LABS: BILIRUBIN,TOTAL 0.6 mg/dL (0.2-1); TOT PROT 5.2 g/dl (6.4-8.2)
[2021-12-19] MEDS: amLODIPine BESYLATE 10 MG TABLET (FP) NGT SCH (09:47)
[2021-12-19] MEDS: METOPROLOL TARTRATE 50 MG TABLET (FP) NGT SCH ×2 (09:47→21:00)
[2021-12-19] MEDS: BANATROL PLUS POWDER PACKET PO SCH ×2 (09:47→21:00)
[2021-12-19] MEDS: AMINO ACIDS/PROTEIN HYDROLYS 30 ML LIQUID.PKT PO SCH ×2 (09:47→17:22)
[2021-12-19] MEDS: PANTOPRAZOLE SODIUM 40 MG VIAL IVPUSH SCH (09:48)
[2021-12-19] MEDS ORDERED: NAPH,MB-DB/K PH,MBDB POWDER PACKET GT ONE (14:00)
[2021-12-19] MEDS: COLLAGENASE CLOSTRIDIUM HIST. 30 GRAMS TUBE TP SCH (14:23)
[2021-12-19] MEDS: NYSTATIN POWDER 100,000 UNITS/GM - 15 GM TOPICAL POWDER TP SCH ×2 (14:23→21:00)
[2021-12-20] MEDS ORDERED: EPOETIN ALFA-EPBX 10,000 UNIT/ML VIAL IVPUSH ONE (08:00)
[2021-12-20] MEDS: METOPROLOL TARTRATE 50 MG TABLET (FP) NGT SCH ×2 (13:08→22:59)
[2021-12-20] MEDS: BANATROL PLUS POWDER PACKET PO SCH ×2 (13:08→22:59)
[2021-12-20] MEDS: PANTOPRAZOLE SODIUM 40 MG VIAL IVPUSH SCH (13:08)
[2021-12-20] MEDS: AMINO ACIDS/PROTEIN HYDROLYS 30 ML LIQUID.PKT PO SCH ×2 (13:09→17:31)
[2021-12-20] MEDS: amLODIPine BESYLATE 10 MG TABLET (FP) NGT SCH (13:09)
[2021-12-20] MEDS: NYSTATIN POWDER 100,000 UNITS/GM - 15 GM TOPICAL POWDER TP SCH ×2 (13:10→22:59)
[2021-12-20] MEDS: COLLAGENASE CLOSTRIDIUM HIST. 30 GRAMS TUBE TP SCH (13:10)
[2021-12-21] MEDS: AMINO ACIDS/PROTEIN HYDROLYS 30 ML LIQUID.PKT PO SCH (09:49)
[2021-12-21] MEDS: METOPROLOL TARTRATE 50 MG TABLET (FP) NGT SCH (09:49)
[2021-12-21] MEDS: amLODIPine BESYLATE 10 MG TABLET (FP) NGT SCH (09:49)
[2021-12-21] MEDS: BANATROL PLUS POWDER PACKET PO SCH (09:49)
[2021-12-21] MEDS: NYSTATIN POWDER 100,000 UNITS/GM - 15 GM TOPICAL POWDER TP SCH (09:50)
[2021-12-21] MEDS: COLLAGENASE CLOSTRIDIUM HIST. 30 GRAMS TUBE TP SCH (09:50)
[2021-12-21] MEDS: PANTOPRAZOLE SODIUM 40 MG VIAL IVPUSH SCH (09:50)
[2021-12-21 10:09] VITALS: BP 152/79; PULSE 84; RESP 19; TEMP 99.5
== END 2021-12-21 14:12 | DRG 3 ==
LOC: JER 12:28 → JERBED 18:12 → JICU 21:30 → J2W 10-19 15:16 → JICU 10-23 14:20 → J5S 11-16 04:38
PROVIDERS: ADMIT Internal Medicine Pulmonary Disease; ATTEND Internal Medicine
PROC: 0DP60UZ Removal of Feeding Device from Stomach, Open Approach (ICD-10-PCS; 2021-10-11)
PROC: 5A1955Z Respiratory Ventilation, Greater than 96 Consecutive Hours (ICD-10-PCS; 2021-10-11)
PROC: 0WQF0ZZ Repair Abdominal Wall, Open Approach (ICD-10-PCS; 2021-10-11)
PROC: 0BH17EZ Insertion of Endotracheal Airway into Trachea, Via Natural or Artificial Opening (ICD-10-PCS; 2021-10-11)
PROC: 02PY33Z Removal of Infusion Device from Great Vessel, Percutaneous Approach (ICD-10-PCS; 2021-10-15)
PROC: 30233N1 Transfusion of Nonautologous Red Blood Cells into Peripheral Vein, Percutaneous Approach (ICD-10-PCS; 2021-10-16)
PROC: XW033E5 Introduction of Remdesivir Anti-infective into Peripheral Vein, Percutaneous Approach, New Technology Group 5 (ICD-10-PCS; 2021-10-16)
PROC: 05HM33Z Insertion of Infusion Device into Right Internal Jugular Vein, Percutaneous Approach (ICD-10-PCS; 2021-10-19)
PROC: B543ZZA Ultrasonography of Right Jugular Veins, Guidance (ICD-10-PCS; 2021-10-19)
PROC: 05H533Z Insertion of Infusion Device into Right Subclavian Vein, Percutaneous Approach (ICD-10-PCS; 2021-10-20)
PROC: B546ZZA Ultrasonography of Right Subclavian Vein, Guidance (ICD-10-PCS; 2021-10-20)
PROC: 05HM33Z Insertion of Infusion Device into Right Internal Jugular Vein, Percutaneous Approach (ICD-10-PCS; 2021-10-20)
PROC: B543ZZA Ultrasonography of Right Jugular Veins, Guidance (ICD-10-PCS; 2021-10-20)
PROC: 02PY33Z Removal of Infusion Device from Great Vessel, Percutaneous Approach (ICD-10-PCS; 2021-10-23)
PROC: 05HC33Z Insertion of Infusion Device into Left Basilic Vein, Percutaneous Approach (ICD-10-PCS; 2021-11-07)
PROC: 0B113F4 Bypass Trachea to Cutaneous with Tracheostomy Device, Percutaneous Approach (ICD-10-PCS; principal; 2021-11-10)
PROC: 0BJ08ZZ Inspection of Tracheobronchial Tree, Via Natural or Artificial Opening Endoscopic (ICD-10-PCS; 2021-11-10)
PROC: 0W9930Z Drainage of Right Pleural Cavity with Drainage Device, Percutaneous Approach (ICD-10-PCS; 2021-11-20)
PROC: 0DH63UZ Insertion of Feeding Device into Stomach, Percutaneous Approach (ICD-10-PCS; 2021-12-10)
PROC: 5A1D70Z Performance of Urinary Filtration, Intermittent, Less than 6 Hours Per Day (ICD-10-PCS; 2021-12-20)
DX: K94.23 Gastrostomy malfunction (principal); A41.9 Sepsis, unspecified organism; N18.6 End stage renal disease; U07.1 COVID-19; K65.9 Peritonitis, unspecified; I46.9 Cardiac arrest, cause unspecified; J93.0 Spontaneous tension pneumothorax; J12.82 Pneumonia due to coronavirus disease 2019; J96.01 Acute respiratory failure with hypoxia; I12.0 Hypertensive chronic kidney disease with stage 5 chronic kidney disease or end stage renal disease; J98.11 Atelectasis; Z68.1 Body mass index [BMI] 19.9 or less, adult; E46 Unspecified protein-calorie malnutrition; E87.21 Acute metabolic acidosis; B49 Unspecified mycosis; E87.0 Hyperosmolality and hypernatremia; R64 Cachexia; A04.72 Enterocolitis due to Clostridium difficile, not specified as recurrent; E87.20 Acidosis, unspecified; T82.49XA Other complication of vascular dialysis catheter, initial encounter; K66.8 Other specified disorders of peritoneum; R14.0 Abdominal distension (gaseous); F01.50 Vascular dementia, unspecified severity, without behavioral disturbance, psychotic disturbance, mood disturbance, and anxiety; D63.8 Anemia in other chronic diseases classified elsewhere; Z99.2 Dependence on renal dialysis; D69.6 Thrombocytopenia, unspecified; E78.5 Hyperlipidemia, unspecified; D72.829 Elevated white blood cell count, unspecified; Y83.9 Surgical procedure, unspecified as the cause of abnormal reaction of the patient, or of later complication, without mention of misadventure at the time of the procedure
CPT/HCPCS: 0241U-QW; 36415; 36430; 36600; 49440; 71045-TC-FY; 71250-TC; 73070-TC-LT-FY; 74018-TC-FY; 74176-TC; 76000-TC-FY; 80048; 80053; 80076; 81003; 82272; 82550; 82553; 82728; 82803; 82962; 83605; 83615; 83735; 84100; 84484; 85025; 85027; 85610; 85730; 86140; 86480; 86704; 86705; 86707; 86803; 86850; 86900; 86901; 86922; 87040; 87070; 87086; 87106; 87186; 87205; 87324; 87340; 87449; 87517; 87522; 93005; 93010; 93971; 94002; 94640; 94760; 99291; C1750; C9399; C9803-CS; G0480; J0637; J0885; J1100; J1644; J2997; P9047; P9058; Q5106; U0003; U0005

== ENCOUNTER 2021-12-23 09:09 | Emergency (ER) | payer OTHER ==
[2021-12-23 09:47] VITALS: TEMP 97.7; BMI 18.1
[2021-12-23 10:35] LABS: HEMATOCRIT 25.4 % (35.4-49); MCH 28.7 pg (25.7-33.7); MCHC 31.6 g/dl (32.0-35.9); MEAN CELL VOLUME 90.7 fl (80-96); MEAN PLT VOLUME 7.5 fl (7.5-11.1); PLATELET COUNT 127 10^3/uL (134-434); RDW 18.7 % (11.9-15.9); WHITE BLOOD COUNT 12.6 K/mm3 (4.0-10.0)
[2021-12-23 11:23] LABS: ALBUMIN 1.9 g/dl (3.4-5.0); CALCIUM 8.7 mg/dL (8.5-10.1)
[2021-12-23 11:24] LABS: BLOOD UREA NITROGEN 52.4 mg/dL (7-18)
[2021-12-23 11:27] LABS: CREATININE 1.8 mg/dL (0.55-1.3)
[2021-12-23 11:29] LABS: BILIRUBIN,TOTAL 0.3 mg/dL (0.2-1); TOT PROT 5.8 g/dl (6.4-8.2)
[2021-12-23 11:42] LABS: ANISOCYTOSIS 0; HELMET CELLS 0; HOWELL-JOLLY BODIES 0; MACROCYTOSIS 0; OVALOCYTE 0; ROULEAU 0; SICKELED CELLS 0; TARGET CELLS 0; TEAR DROP CELLS 0; TOXIC GRANULATION 0
[2021-12-23 15:19] LABS: EPI CELLS 6 /uL (0-25.1); HYALINE CASTS 1 /uL (0-3.1); PH,URINE >= 9.0 (5.0-8.0); URINE APPEARANCE CLEAR; URINE BACTERIA 10 /uL (0-1359); URINE BILIRUBIN NEGATIVE (NEGATIVE); URINE COLOR YELLOW; URINE GLUCOSE (UA) TRACE (NEGATIVE); URINE KETONE NEGATIVE (NEGATIVE); URINE LEUK ESTERASE NEGATIVE (NEGATIVE); URINE NITRITE NEGATIVE (NEGATIVE); URINE PROTEIN 2+ (NEGATIVE); URINE RBC 43 /uL (0-23.9); URINE UROBILINOGEN 0.2 mg/dL (0.2-1.0); URINE WBC 13 /uL (0-25.8)
[2021-12-23] MEDS ORDERED: FUROSEMIDE 40 MG/4 ML INJECTABLE VIAL IVPUSH ONE (15:32)
[2021-12-23] MEDS ORDERED: FUROSEMIDE 40 MG/4 ML INJECTABLE VIAL ONE (15:58)
[2021-12-23] MEDS ORDERED: METOPROLOL TARTRATE 5 MG/5 ML VIAL IVPUSH ONE (18:07)
[2021-12-23] MEDS ORDERED: METOPROLOL TARTRATE 50 MG TABLET (FP) PO ONE (18:07)
[2021-12-23] MEDS ORDERED: METOPROLOL TARTRATE 50 MG TABLET (FP) GT ONE (18:08)
[2021-12-23] MEDS ORDERED: METOPROLOL TARTRATE 50 MG TABLET (FP) ONE (18:17)
[2021-12-23] MEDS ORDERED: METOPROLOL TARTRATE 5 MG/5 ML VIAL ONE (18:18)
[2021-12-23 20:21] VITALS: BP 180/67; PULSE 73; RESP 18
== END 2021-12-23 21:00 | disposition home or self-care (01) ==
LOC: JER 09:09
PROC: 3E033NZ Introduction of Analgesics, Hypnotics, Sedatives into Peripheral Vein, Percutaneous Approach (ICD-10-PCS; principal; 2021-12-23)
DX: J95.00 Unspecified tracheostomy complication (principal)
CPT/HCPCS: 0241U-QW; 36415; 71045-TC-FY; 74176-TC; 80053; 81003; 85025; 87086; 87186; 93005; 93010; 99285-25

== ENCOUNTER 2022-03-03 15:42 | Inpatient (IN) | payer OTHER ==
[2022-03-03 16:11] VITALS: BMI 16.5
[2022-03-03 19:39] LABS: HEMOGLOBIN 7.9 GM/dL (11.7-16.9); MCH 30.1 pg (25.7-33.7); MCHC 30.2 g/dl (32.0-35.9); MEAN CELL VOLUME 99.8 fl (80-96); MEAN PLT VOLUME 7.1 fl (7.5-11.1); PLATELET COUNT 99 10^3/uL (134-434); RBC 2.61 M/mm3 (4.00-5.60); RDW 22.7 % (11.9-15.9)
[2022-03-03 19:46] LABS: INR 1.46 (0.83-1.09); PROTHROMBIN TIME (PATIENT) 16.9 SEC (9.7-13.0)
[2022-03-03 19:47] LABS: ADD RBC MORPHOLOGY YES; WHITE BLOOD COUNT 45.2 K/mm3 (4.0-10.0)
[2022-03-03 19:48] LABS: ACTIVATED PTT 34.6 SECONDS (25.2-36.5)
[2022-03-03 19:57] LABS: ALBUMIN 1.3 g/dl (3.4-5.0); CALCIUM 8.7 mg/dL (8.5-10.1)
[2022-03-03 20:00] LABS: CREATININE 2.3 mg/dL (0.55-1.3); PHOSPHOROUS 1.8 mg/dL (2.5-4.9)
[2022-03-03 20:02] LABS: BILIRUBIN,TOTAL 0.4 mg/dL (0.2-1); TOT PROT 5.3 g/dl (6.4-8.2)
[2022-03-03] MEDS ORDERED: PIPERACILLIN/TAZOB 2.25 GM 2.25 GM in DEXTROSE 5%-WATER - 50 ML IVPB ONE (20:02)
[2022-03-03] MEDS ORDERED: VANCOMYCIN 1 GM in D5W (PRE-DOCKED) 1,000 MG/250 ML IVPB ONE (20:02)
[2022-03-03] MEDS ORDERED: DEXTROSE 50%-WATER - 25 GM/50 ML VIAL IVPUSH ONE (20:25)
[2022-03-03] MEDS ORDERED: PIPERACILLIN/TAZOB 2.25 GM 2.25 GM/50 ML BAG IVPB ONE (20:47)
[2022-03-03] MEDS ORDERED: DEXTROSE 50%-WATER 25 GM/50 ML DISP.SYRIN ONE (20:47)
[2022-03-03] MEDS ORDERED: VANCOMYCIN/WATER FOR INJ (PEG) 1,000 MG/200 ML BAG IVPB ONE (20:48)
[2022-03-03 21:33] LABS: ANISOCYTOSIS 3+; MACROCYTOSIS 1+
[2022-03-03] MEDS ORDERED: SODIUM CHLORIDE 0.9% 1000 ML INFUS.BAG IV ONE (21:52)
[2022-03-03] MEDS ORDERED: SODIUM CHLORIDE 1,000 ML IV STA (22:58)
[2022-03-03] MEDS ORDERED: VANCOMYCIN 500 MG in DEXTROSE 5%-WATER - 100 ML IVPB SCH (23:00)
[2022-03-03] MEDS ORDERED: VANCOMYCIN 500 MG VIAL (RESTRICTED TO ID ONLY) ONE (23:17)
[2022-03-03] MEDS ORDERED: HEPARIN NA (PORCINE) 5,000 UNITS/ML 1ML VIAL ONE (23:18)
[2022-03-03] MEDS: HEPARIN NA (PORCINE) 5,000 UNITS/ML 1ML VIAL SQ SCH (23:27)
[2022-03-04] MEDS ORDERED: NAPH,MB-DB/K PH,MBDB POWDER PACKET PO ONE (02:53)
[2022-03-04] MEDS ORDERED: PIPERACILLIN/TAZOB 2.25 GM 2.25 GM/50 ML BAG IVPB ONE (03:00)
[2022-03-04] MEDS: PIPERACILLIN/TAZOB 2.25 GM 2.25 GM in DEXTROSE 5%-WATER - 50 ML IVPB SCH ×4 (03:12→17:40)
[2022-03-04] MEDS: HEPARIN NA (PORCINE) 5,000 UNITS/ML 1ML VIAL SQ SCH ×3 (05:20→21:51)
[2022-03-04] MEDS ORDERED: METOPROLOL TARTRATE 25 MG TABLET (FP) GT SCH (10:00)
[2022-03-04] MEDS ORDERED: PIPERACILLIN/TAZOB 2.25 GM 2.25 GM in DEXTROSE 5%-WATER - 50 ML IVPB SCH ×2 (10:00→18:00)
[2022-03-04] MEDS ORDERED: amLODIPine BESYLATE 10 MG TABLET (FP) GT SCH (10:00)
[2022-03-04] MEDS ORDERED: VANCOMYCIN 500 MG in DEXTROSE 5%-WATER - 100 ML IVPB ONE (10:00)
[2022-03-04 10:33] LABS: HEMATOCRIT 23.1 % (35.4-49); HEMOGLOBIN 7.2 GM/dL (11.7-16.9); MCH 30.8 pg (25.7-33.7); MEAN CELL VOLUME 99.1 fl (80-96); MEAN PLT VOLUME 7.1 fl (7.5-11.1); PLATELET COUNT 67 10^3/uL (134-434); RBC 2.33 M/mm3 (4.00-5.60); RDW 22.2 % (11.9-15.9)
[2022-03-04 10:41] LABS: WHITE BLOOD COUNT 31.2 K/mm3 (4.0-10.0)
[2022-03-04 10:51] LABS: CALCIUM 8.4 mg/dL (8.5-10.1)
[2022-03-04 10:52] LABS: ALBUMIN 1.2 g/dl (3.4-5.0); MAGNESIUM 1.9 mg/dL (1.8-2.4)
[2022-03-04 10:55] LABS: CREATININE 2.4 mg/dL (0.55-1.3); PHOSPHOROUS 2.2 mg/dL (2.5-4.9)
[2022-03-04 10:57] LABS: BILIRUBIN,TOTAL 0.5 mg/dL (0.2-1)
[2022-03-04 12:22] LABS: ANISOCYTOSIS 1+; MACROCYTOSIS 1+
[2022-03-04] MEDS ORDERED: LIDOCAINE HCL 1%, 10 MG/ML (20ML VIAL) ONE (14:30)
[2022-03-04] MEDS ORDERED: SODIUM CHLORIDE 250 ML IV PRN (15:43)
[2022-03-04] MEDS ORDERED: FENTANYL CITRATE/PF 50 MCG/ML VIAL ONE (16:16)
[2022-03-04] MEDS ORDERED: VANCOMYCIN 1,000 MG VIAL (RESTRICTED TO ID ONLY) ONE (16:19)
[2022-03-04] MEDS ORDERED: LIDOCAINE HCL 1%, 10 MG/ML (20ML VIAL) NR ONE (16:37)
[2022-03-04] MEDS ORDERED: HEPARIN NA (PORCINE) 5,000 UNITS/ML 1ML VIAL SQ ONE (16:38)
[2022-03-04] MEDS: ATORVASTATIN CA 40 MG TABLET (FP) GT SCH (21:51)
[2022-03-04] MEDS: METOPROLOL TARTRATE 25 MG TABLET (FP) GT SCH (21:52)
[2022-03-04] MEDS ORDERED: ATORVASTATIN CA 40 MG TABLET (FP) GT SCH (22:00)
[2022-03-05] MEDS: PIPERACILLIN/TAZOB 2.25 GM 2.25 GM in DEXTROSE 5%-WATER - 50 ML IVPB SCH ×4 (01:29→10:35)
[2022-03-05] MEDS: HEPARIN NA (PORCINE) 5,000 UNITS/ML 1ML VIAL SQ SCH ×3 (05:35→21:44)
[2022-03-05 09:48] LABS: HEMATOCRIT 24.1 % (35.4-49); HEMOGLOBIN 7.6 GM/dL (11.7-16.9); MCH 31.3 pg (25.7-33.7); MCHC 31.6 g/dl (32.0-35.9); MEAN CELL VOLUME 99.2 fl (80-96); MEAN PLT VOLUME 7.9 fl (7.5-11.1); PLATELET COUNT 64 10^3/uL (134-434); RBC 2.43 M/mm3 (4.00-5.60); RDW 22.3 % (11.9-15.9)
[2022-03-05 10:10] LABS: ALBUMIN 1.3 g/dl (3.4-5.0); CALCIUM 8.6 mg/dL (8.5-10.1)
[2022-03-05 10:11] LABS: BLOOD UREA NITROGEN 93.1 mg/dL (7-18); MAGNESIUM 2.1 mg/dL (1.8-2.4)
[2022-03-05 10:14] LABS: CREATININE 2.8 mg/dL (0.55-1.3)
[2022-03-05 10:15] LABS: BILIRUBIN,TOTAL 0.8 mg/dL (0.2-1)
[2022-03-05] MEDS: METOPROLOL TARTRATE 25 MG TABLET (FP) GT SCH ×3 (10:35→21:44)
[2022-03-05] MEDS: amLODIPine BESYLATE 10 MG TABLET (FP) GT SCH ×2 (10:36→16:36)
[2022-03-05] MEDS ORDERED: CEFEPIME 1 GM in DEXTROSE 5%-WATER 100 ML IVPB ONE (11:04)
[2022-03-05] MEDS ORDERED: VANCOMYCIN/WATER FOR INJ (PEG) 1,000 MG/200 ML BAG IVPB ONE ×2 (11:04→14:00)
[2022-03-05 12:41] LABS: ANISOCYTOSIS 1+; MACROCYTOSIS 0
[2022-03-05] MEDS ORDERED: SODIUM CHLORIDE 250 ML IV PRN (13:44)
[2022-03-05] MEDS ORDERED: EPOETIN ALFA-EPBX 10,000 UNIT/ML VIAL SQ ONE ×2 (13:45→15:44)
[2022-03-05] MEDS: ATORVASTATIN CA 40 MG TABLET (FP) GT SCH (21:44)
[2022-03-06] MEDS: HEPARIN NA (PORCINE) 5,000 UNITS/ML 1ML VIAL SQ SCH ×3 (06:15→22:10)
[2022-03-06] MEDS: METOPROLOL TARTRATE 25 MG TABLET (FP) GT SCH ×2 (09:02→22:10)
[2022-03-06] MEDS: amLODIPine BESYLATE 10 MG TABLET (FP) GT SCH (09:02)
[2022-03-06 09:43] LABS: HEMATOCRIT 24.3 % (35.4-49); HEMOGLOBIN 7.7 GM/dL (11.7-16.9); MCH 31.1 pg (25.7-33.7); MCHC 31.4 g/dl (32.0-35.9); MEAN CELL VOLUME 98.9 fl (80-96); MEAN PLT VOLUME 8.2 fl (7.5-11.1); PLATELET COUNT 69 10^3/uL (134-434); RBC 2.46 M/mm3 (4.00-5.60); RDW 22.6 % (11.9-15.9); WHITE BLOOD COUNT 16.3 K/mm3 (4.0-10.0)
[2022-03-06 10:14] LABS: ALBUMIN 1.5 g/dl (3.4-5.0); CALCIUM 8.6 mg/dL (8.5-10.1)
[2022-03-06 10:15] LABS: CREATININE 1.8 mg/dL (0.55-1.3)
[2022-03-06 10:17] LABS: BILIRUBIN,TOTAL 0.5 mg/dL (0.2-1); TOT PROT 5.4 g/dl (6.4-8.2)
[2022-03-06 10:25] LABS: ANISOCYTOSIS 2+; MACROCYTOSIS 0; PLATELET ESTIMATE DECREASED; TARGET CELLS 1+
[2022-03-06 10:26] LABS: BLOOD UREA NITROGEN 55.1 mg/dL (7-18)
[2022-03-06] MEDS ORDERED: POTASSIUM CHLORIDE TABS 20 MEQ TABLET.ER (FP) PO ONE (11:08)
[2022-03-06] MEDS ORDERED: POTASSIUM CHLORIDE ORAL LIQUID 20 MEQ/15 ML PO ONE (11:25)
[2022-03-06] MEDS: AMINO ACIDS/PROTEIN HYDROLYS 30 ML LIQUID.PKT PO SCH (14:55)
[2022-03-06] MEDS: ATORVASTATIN CA 40 MG TABLET (FP) GT SCH (22:10)
[2022-03-07] MEDS ORDERED: ACETAMINOPHEN 1000 MG/100 ML BAG IVPB ONE (01:29)
[2022-03-07] MEDS: HEPARIN NA (PORCINE) 5,000 UNITS/ML 1ML VIAL SQ SCH ×3 (06:06→23:16)
[2022-03-07] MEDS: AMINO ACIDS/PROTEIN HYDROLYS 30 ML LIQUID.PKT PO SCH (08:39)
[2022-03-07] MEDS ORDERED: EPOETIN ALFA-EPBX 4,000 UNIT/ML VIAL SQ ONE (10:26)
[2022-03-07] MEDS: METOPROLOL TARTRATE 25 MG TABLET (FP) GT SCH ×2 (11:59→23:16)
[2022-03-07] MEDS: amLODIPine BESYLATE 10 MG TABLET (FP) GT SCH (11:59)
[2022-03-07 12:49] LABS: HEMATOCRIT 23.7 % (35.4-49); HEMOGLOBIN 7.5 GM/dL (11.7-16.9); MCH 31.6 pg (25.7-33.7); MCHC 31.5 g/dl (32.0-35.9); MEAN CELL VOLUME 100.2 fl (80-96); PLATELET COUNT 65 10^3/uL (134-434); RBC 2.36 M/mm3 (4.00-5.60); RDW 22.3 % (11.9-15.9); WHITE BLOOD COUNT 15.6 K/mm3 (4.0-10.0)
[2022-03-07 13:20] LABS: ALBUMIN 1.5 g/dl (3.4-5.0)
[2022-03-07 13:21] LABS: BLOOD UREA NITROGEN 75.9 mg/dL (7-18)
[2022-03-07 13:24] LABS: CREATININE 2.5 mg/dL (0.55-1.3)
[2022-03-07 13:25] LABS: BILIRUBIN,TOTAL 0.4 mg/dL (0.2-1); TOT PROT 5.5 g/dl (6.4-8.2)
[2022-03-07] MEDS: ATORVASTATIN CA 40 MG TABLET (FP) GT SCH (23:16)
[2022-03-08] MEDS: HEPARIN NA (PORCINE) 5,000 UNITS/ML 1ML VIAL SQ SCH ×3 (06:33→21:13)
[2022-03-08] MEDS ORDERED: SODIUM CHLORIDE 250 ML IV PRN (07:38)
[2022-03-08 08:50] LABS: MCHC 31.9 g/dl (32.0-35.9); MEAN CELL VOLUME 100.1 fl (80-96); MEAN PLT VOLUME 8.9 fl (7.5-11.1); PLATELET COUNT 64 10^3/uL (134-434); RDW 22.4 % (11.9-15.9); WHITE BLOOD COUNT 14.3 K/mm3 (4.0-10.0)
[2022-03-08 08:54] LABS: HEMOGLOBIN 6.7 GM/dL (11.7-16.9)
[2022-03-08 09:14] LABS: BLOOD UREA NITROGEN 89.3 mg/dL (7-18); CALCIUM 8.9 mg/dL (8.5-10.1)
[2022-03-08 09:17] LABS: CREATININE 2.8 mg/dL (0.55-1.3); PHOSPHOROUS 2.1 mg/dL (2.5-4.9)
[2022-03-08] MEDS: EPOETIN ALFA-EPBX 10,000 UNIT/ML VIAL SQ ONE ×2 (09:31→11:11)
[2022-03-08] MEDS ORDERED: POTASSIUM PHOSPHATE 15 MM in DEXTROSE 5%-WATER - 250 ML IVPB ONE (10:00)
[2022-03-08] MEDS: METOPROLOL TARTRATE 25 MG TABLET (FP) GT SCH ×2 (13:15→21:13)
[2022-03-08] MEDS: AMINO ACIDS/PROTEIN HYDROLYS 30 ML LIQUID.PKT PO SCH (13:15)
[2022-03-08] MEDS: amLODIPine BESYLATE 10 MG TABLET (FP) GT SCH (13:16)
[2022-03-08] MEDS: ATORVASTATIN CA 40 MG TABLET (FP) GT SCH (21:13)
[2022-03-09] MEDS: HEPARIN NA (PORCINE) 5,000 UNITS/ML 1ML VIAL SQ SCH ×3 (05:11→22:59)
[2022-03-09] MEDS: AMINO ACIDS/PROTEIN HYDROLYS 30 ML LIQUID.PKT PO SCH (11:06)
[2022-03-09] MEDS: amLODIPine BESYLATE 10 MG TABLET (FP) GT SCH (11:06)
[2022-03-09] MEDS: VITAMIN B COMP W-C 1 EA TABLET (NEPHRO-VITE) PEG SCH (11:06)
[2022-03-09] MEDS: METOPROLOL TARTRATE 25 MG TABLET (FP) GT SCH ×2 (11:06→22:59)
[2022-03-09 13:12] LABS: HEMATOCRIT 25.2 % (35.4-49); HEMOGLOBIN 8.1 GM/dL (11.7-16.9); MCH 31.2 pg (25.7-33.7); MCHC 32.1 g/dl (32.0-35.9); MEAN CELL VOLUME 97.2 fl (80-96); MEAN PLT VOLUME 9.1 fl (7.5-11.1); PLATELET COUNT 61 10^3/uL (134-434); RBC 2.59 M/mm3 (4.00-5.60); RDW 18.9 % (11.9-15.9); WHITE BLOOD COUNT 11.8 K/mm3 (4.0-10.0)
[2022-03-09 13:23] LABS: CALCIUM 8.8 mg/dL (8.5-10.1)
[2022-03-09 13:24] LABS: MAGNESIUM 1.9 mg/dL (1.8-2.4)
[2022-03-09 13:27] LABS: CREATININE 2.2 mg/dL (0.55-1.3)
[2022-03-09 14:04] LABS: BLOOD UREA NITROGEN 59.5 mg/dL (7-18); PHOSPHOROUS 1.2 mg/dL (2.5-4.9)
[2022-03-09] MEDS ORDERED: POTASSIUM PHOSPHATE 15 MM in SODIUM CHLORIDE 250 ML IVPB ONE (16:00)
[2022-03-09] MEDS ORDERED: EPOETIN ALFA-EPBX 10,000 UNIT/ML VIAL SQ ONE (18:58)
[2022-03-09] MEDS ORDERED: SODIUM CHLORIDE 250 ML IV PRN (18:58)
[2022-03-09] MEDS: ATORVASTATIN CA 40 MG TABLET (FP) GT SCH (22:58)
[2022-03-10] MEDS: HEPARIN NA (PORCINE) 5,000 UNITS/ML 1ML VIAL SQ SCH ×3 (05:38→21:29)
[2022-03-10] MEDS: AMINO ACIDS/PROTEIN HYDROLYS 30 ML LIQUID.PKT PO SCH (09:09)
[2022-03-10] MEDS: VITAMIN B COMP W-C 1 EA TABLET (NEPHRO-VITE) PEG SCH (09:10)
[2022-03-10] MEDS: METOPROLOL TARTRATE 25 MG TABLET (FP) GT SCH ×2 (10:40→21:29)
[2022-03-10] MEDS: amLODIPine BESYLATE 10 MG TABLET (FP) GT SCH (10:40)
[2022-03-10 11:24] LABS: HEMATOCRIT 26.8 % (35.4-49); HEMOGLOBIN 8.5 GM/dL (11.7-16.9); MCHC 31.6 g/dl (32.0-35.9); MEAN CELL VOLUME 98.1 fl (80-96); MEAN PLT VOLUME 9.1 fl (7.5-11.1); PLATELET COUNT 93 10^3/uL (134-434); RBC 2.73 M/mm3 (4.00-5.60); RDW 20.1 % (11.9-15.9); WHITE BLOOD COUNT 10.8 K/mm3 (4.0-10.0)
[2022-03-10 11:50] LABS: CALCIUM 8.9 mg/dL (8.5-10.1)
[2022-03-10 11:51] LABS: BLOOD UREA NITROGEN 80.2 mg/dL (7-18)
[2022-03-10 11:54] LABS: CREATININE 2.6 mg/dL (0.55-1.3); PHOSPHOROUS 2.5 mg/dL (2.5-4.9)
[2022-03-10] MEDS: ATORVASTATIN CA 40 MG TABLET (FP) GT SCH (21:28)
[2022-03-11] MEDS: HEPARIN NA (PORCINE) 5,000 UNITS/ML 1ML VIAL SQ SCH ×2 (05:29→13:46)
[2022-03-11] MEDS: VITAMIN B COMP W-C 1 EA TABLET (NEPHRO-VITE) PEG SCH (10:31)
[2022-03-11] MEDS: AMINO ACIDS/PROTEIN HYDROLYS 30 ML LIQUID.PKT PO SCH (10:32)
[2022-03-11] MEDS: METOPROLOL TARTRATE 25 MG TABLET (FP) GT SCH (10:32)
[2022-03-11] MEDS: amLODIPine BESYLATE 10 MG TABLET (FP) GT SCH (10:32)
[2022-03-11 10:48] LABS: HEMOGLOBIN 7.8 GM/dL (11.7-16.9); MCHC 31.4 g/dl (32.0-35.9); MEAN PLT VOLUME 8.8 fl (7.5-11.1); PLATELET COUNT 120 10^3/uL (134-434); RBC 2.52 M/mm3 (4.00-5.60); RDW 21.6 % (11.9-15.9); WHITE BLOOD COUNT 7.2 K/mm3 (4.0-10.0)
[2022-03-11 11:14] LABS: CALCIUM 8.4 mg/dL (8.5-10.1)
[2022-03-11 11:18] LABS: CREATININE 1.8 mg/dL (0.55-1.3)
[2022-03-11 11:27] LABS: BLOOD UREA NITROGEN 45.7 mg/dL (7-18)
[2022-03-11 18:18] VITALS: BP 162/81; TEMP 99.2
[2022-03-11 20:41] VITALS: PULSE 95; RESP 14
== END 2022-03-11 22:40 | DRG 314 ==
LOC: JER 15:42 → JERBED 20:34 → J5S 03-04 04:11
PROVIDERS: ADMIT Internal Medicine; ATTEND Internal Medicine
PROC: 5A1955Z Respiratory Ventilation, Greater than 96 Consecutive Hours (ICD-10-PCS; principal; 2022-03-03)
PROC: 0J2TXYZ Change Other Device in Trunk Subcutaneous Tissue and Fascia, External Approach (ICD-10-PCS; 2022-03-04)
PROC: 5A1D70Z Performance of Urinary Filtration, Intermittent, Less than 6 Hours Per Day (ICD-10-PCS; 2022-03-05)
PROC: 30233N1 Transfusion of Nonautologous Red Blood Cells into Peripheral Vein, Percutaneous Approach (ICD-10-PCS; 2022-03-08)
DX: T82.7XXA Infection and inflammatory reaction due to other cardiac and vascular devices, implants and grafts, initial encounter (principal); A41.9 Sepsis, unspecified organism; J18.9 Pneumonia, unspecified organism; L89.153 Pressure ulcer of sacral region, stage 3; N18.6 End stage renal disease; T82.41XA Breakdown (mechanical) of vascular dialysis catheter, initial encounter; Z68.1 Body mass index [BMI] 19.9 or less, adult; J96.10 Chronic respiratory failure, unspecified whether with hypoxia or hypercapnia; E46 Unspecified protein-calorie malnutrition; I12.0 Hypertensive chronic kidney disease with stage 5 chronic kidney disease or end stage renal disease; I82.409 Acute embolism and thrombosis of unspecified deep veins of unspecified lower extremity; J98.11 Atelectasis; R64 Cachexia; F03.90 Unspecified dementia, unspecified severity, without behavioral disturbance, psychotic disturbance, mood disturbance, and anxiety; Z93.1 Gastrostomy status; Z93.0 Tracheostomy status; D63.1 Anemia in chronic kidney disease; E83.39 Other disorders of phosphorus metabolism; E88.09 Other disorders of plasma-protein metabolism, not elsewhere classified; Y83.9 Surgical procedure, unspecified as the cause of abnormal reaction of the patient, or of later complication, without mention of misadventure at the time of the procedure; D69.6 Thrombocytopenia, unspecified; D72.829 Elevated white blood cell count, unspecified; E78.5 Hyperlipidemia, unspecified
CPT/HCPCS: 0241U-QW; 36415; 36430; 71045-TC-FY; 80048; 80053; 82272; 82607; 82728; 82746; 83540; 83550; 83735; 84100; 85025; 85027; 85045; 85610; 85730; 86803; 86850; 86900; 86901; 86922; 87040; 87340; 93005; 93010; 94002; 99285-25; C1750; C1769; C9803-CS; J1644; P9058; Q5106; U0003; U0005

== ENCOUNTER 2022-04-01 23:18 | Inpatient (IN) | payer OTHER ==
[2022-04-01 23:42] LABS: BASO % 0.1 % (0-2.0); HEMATOCRIT 23.4 % (35.4-49); HEMOGLOBIN 7.5 GM/dL (11.7-16.9); LYMPH % 1.8 % (8-40); MCHC 32.2 g/dl (32.0-35.9); MONO % 2.2 % (3.8-10.2); NEUT % 95.9 % (42.8-82.8); PLATELET COUNT 183 10^3/uL (134-434); RBC 2.43 M/mm3 (4.00-5.60); RDW 18.9 % (11.9-15.9)
[2022-04-01] MEDS ORDERED: VANCOMYCIN 1 GM in D5W (PRE-DOCKED) 1,000 MG/250 ML IVPB ONE (23:47)
[2022-04-01 23:48] LABS: INR 1.4 (0.83-1.09); PROTHROMBIN TIME (PATIENT) 16.2 SEC (9.7-13.0)
[2022-04-01] MEDS ORDERED: PIPERACILLIN/TAZOB 3.375 GM 3.375 GM in DEXTROSE 5%-WATER - 50 ML IVPB ONE (23:48)
[2022-04-01 23:50] LABS: ACTIVATED PTT 34.9 SECONDS (25.2-36.5)
[2022-04-01 23:54] LABS: EPI CELLS >36 /uL (0-25.1); HYALINE CASTS 159 /uL (0-3.1); PH,URINE 6.5 (5.0-8.0); URINE APPEARANCE TURBID; URINE BACTERIA 2019 /uL (0-1359); URINE BILIRUBIN NEGATIVE (NEGATIVE); URINE COLOR DK YELLOW; URINE GLUCOSE (UA) NEGATIVE (NEGATIVE); URINE KETONE NEGATIVE (NEGATIVE); URINE LEUK ESTERASE 3+ (NEGATIVE); URINE NITRITE NEGATIVE (NEGATIVE); URINE PROTEIN 2+ (NEGATIVE); URINE UROBILINOGEN 0.2 mg/dL (0.2-1.0); URINE WBC 22503 /uL (0-25.8)
[2022-04-01] MEDS ORDERED: PIPERACILLIN/TAZOB 3.375 GM 3.375 GM/50 ML BAG IVPB ONE (23:55)
[2022-04-01] MEDS ORDERED: VANCOMYCIN/WATER FOR INJ (PEG) 1,000 MG/200 ML BAG IVPB ONE (23:55)
[2022-04-02 00:02] LABS: ALBUMIN 1.3 g/dl (3.4-5.0); CALCIUM 7.9 mg/dL (8.5-10.1)
[2022-04-02 00:03] LABS: BLOOD UREA NITROGEN 45.4 mg/dL (7-18)
[2022-04-02 00:06] LABS: CREATININE 1.2 mg/dL (0.55-1.3)
[2022-04-02 00:07] LABS: BILIRUBIN,TOTAL 0.3 mg/dL (0.2-1); TOT PROT 5.7 g/dl (6.4-8.2)
[2022-04-02 00:23] LABS: LACTIC ACID 4.7 mmol/L (0.4-2.0)
[2022-04-02 00:46] LABS: URINE RBC 143.6 /uL (0-23.9)
[2022-04-02 00:47] LABS: URINE CRYSTALS FEW /hpf; YEAST NONE SEEN (NEGATIVE)
[2022-04-02 02:05] LABS: ANISOCYTOSIS 2+; MACROCYTOSIS 2+
[2022-04-02] MEDS ORDERED: FENTANYL NS IVPB 500 MCG/100 ML BAG IVPB ONE (02:25)
[2022-04-02] MEDS ORDERED: LACTATED RINGERS SOLUTION 1,000 ML/1,000 ML INFUS.BAG IV ONE (03:35)
[2022-04-02] MEDS: PROPOFOL 1,000,000 MCG/100 ML VIAL IVPB SCH (03:41)
[2022-04-02] MEDS: MUPIROCIN 2% TOPICAL OINTMENT FOR DECOLONIZATION NS SCH ×3 (03:41→21:07)
[2022-04-02] MEDS: FENTANYL NS IVPB 500 MCG/100 ML BAG IVPB SCH ×2 (03:42→21:08)
[2022-04-02 07:25] LABS: ARTERIAL BLD GAS O2 SATURATION 99.7 % (95-98); ARTERIAL BLOOD GAS BASE EXCESS 2.9 mmol/L (-2-2); ARTERIAL BLOOD GAS PO2 290.8 mmHg (80-100); ARTERIAL BLOOD GAS pH 7.469 (7.350-7.450)
[2022-04-02 07:27] LABS: ALLENS TEST POSITIVE
[2022-04-02 07:28] LABS: VENT MODE A/C; VENT RATE 16
[2022-04-02] MEDS ORDERED: SODIUM CHLORIDE 500 ML IV STA (09:26)
[2022-04-02] MEDS ORDERED: PIPERACILLIN/TAZOB 3.375 GM 3.375 GM in DEXTROSE 5%-WATER - 50 ML IVPB SCH (10:00)
[2022-04-02] MEDS: HEPARIN NA (PORCINE) 5,000 UNITS/ML 1ML VIAL SQ SCH ×2 (10:43→21:07)
[2022-04-02] MEDS: PANTOPRAZOLE SODIUM 40 MG VIAL IVPUSH SCH (10:43)
[2022-04-02] MEDS ORDERED: REMDESIVIR 200 MG in SODIUM CHLORIDE 250 ML IVPB ONE (12:00)
[2022-04-02 12:20] LABS: N-TERMINAL BNP 14581.4 pg/ml (5-125)
[2022-04-02] MEDS: PIPERACILLIN/TAZOB 2.25 GM 2.25 GM in DEXTROSE 5%-WATER - 50 ML IVPB SCH (18:01)
[2022-04-02] MEDS: CHLORHEXIDINE GLUCONATE 4% CLEANSER FOR DECOLONIZATION TP SCH (21:07)
[2022-04-02 21:38] LABS: CHLORIDE 94 mmol/L (98-107); SODIUM 131 mmol/L (136-145)
[2022-04-02 21:39] LABS: BLOOD UREA NITROGEN 59.8 mg/dL (7-18); CALCIUM 8.3 mg/dL (8.5-10.1); CO2 22 mmol/L (21-32); GLUCOSE,RANDOM 87 mg/dL (74-106)
[2022-04-02 21:43] LABS: CREATININE 1.3 mg/dL (0.55-1.3)
[2022-04-02 22:44] LABS: ANION GAP 14 MMOL/L (8-16)
[2022-04-02] MEDS: KCL 10 MEQ IVPB 10 MEQ/100 ML INFUS.BAG IVPB SCH ×2 (22:55→23:53)
[2022-04-02] MEDS: POTASSIUM CHLORIDE ORAL LIQUID 20 MEQ/15 ML PO SCH ×2 (22:55→23:53)
[2022-04-03] MEDS: PIPERACILLIN/TAZOB 2.25 GM 2.25 GM in DEXTROSE 5%-WATER - 50 ML IVPB SCH ×3 (01:58→17:18)
[2022-04-03] MEDS: PROPOFOL 1,000,000 MCG/100 ML VIAL IVPB SCH (06:23)
[2022-04-03] MEDS: FENTANYL NS IVPB 500 MCG/100 ML BAG IVPB SCH ×2 (06:23→09:14)
[2022-04-03 06:43] LABS: ARTERIAL BLD GAS O2 SATURATION 98.7 % (95-98); ARTERIAL BLOOD GAS BASE EXCESS -2.7 mmol/L (-2-2); ARTERIAL BLOOD GAS PO2 132.1 mmHg (80-100); ARTERIAL BLOOD GAS pH 7.406 (7.350-7.450)
[2022-04-03 07:00] LABS: ALLENS TEST POSITIVE
[2022-04-03 07:01] LABS: VENT MODE A/C; VENT RATE 16
[2022-04-03 08:11] LABS: HEMOGLOBIN 7.1 GM/dL (11.7-16.9); MCH 30.8 pg (25.7-33.7); MCHC 32.1 g/dl (32.0-35.9); MEAN CELL VOLUME 96.1 fl (80-96); MEAN PLT VOLUME 7.5 fl (7.5-11.1); PLATELET COUNT 145 10^3/uL (134-434); RBC 2.29 M/mm3 (4.00-5.60); WHITE BLOOD COUNT 17.8 K/mm3 (4.0-10.0)
[2022-04-03 08:14] LABS: INR 1.29 (0.83-1.09); PROTHROMBIN TIME (PATIENT) 14.9 SEC (9.7-13.0)
[2022-04-03 08:32] LABS: CALCIUM 8.7 mg/dL (8.5-10.1)
[2022-04-03 08:33] LABS: ALBUMIN 1.2 g/dl (3.4-5.0); BLOOD UREA NITROGEN 62.7 mg/dL (7-18); MAGNESIUM 1.8 mg/dL (1.8-2.4)
[2022-04-03 08:36] LABS: CREATININE 1.4 mg/dL (0.55-1.3); PHOSPHOROUS 3.4 mg/dL (2.5-4.9)
[2022-04-03 08:37] LABS: BILIRUBIN,TOTAL 0.3 mg/dL (0.2-1); TOT PROT 5.2 g/dl (6.4-8.2)
[2022-04-03 08:41] LABS: N-TERMINAL BNP 12349.5 pg/ml (5-125)
[2022-04-03] MEDS: PANTOPRAZOLE SODIUM 40 MG VIAL IVPUSH SCH (09:13)
[2022-04-03] MEDS: HEPARIN NA (PORCINE) 5,000 UNITS/ML 1ML VIAL SQ SCH ×2 (09:13→21:34)
[2022-04-03] MEDS ORDERED: PIPERACILLIN/TAZOB 3.375 GM 3.375 GM in DEXTROSE 5%-WATER - 50 ML IVPB SCH (10:00)
[2022-04-03 10:05] LABS: ANISOCYTOSIS 3+; MACROCYTOSIS 0; OVALOCYTE 1+
[2022-04-03] MEDS: REMDESIVIR 100 MG in SODIUM CHLORIDE 250 ML IVPB SCH (12:00)
[2022-04-03] MEDS: MUPIROCIN 2% TOPICAL OINTMENT FOR DECOLONIZATION NS SCH ×2 (12:01→21:34)
[2022-04-03] MEDS: AMINO ACIDS/PROTEIN HYDROLYS 30 ML LIQUID.PKT GT SCH (18:13)
[2022-04-03] MEDS: CHLORHEXIDINE GLUCONATE 4% CLEANSER FOR DECOLONIZATION TP SCH (21:34)
[2022-04-04] MEDS: FENTANYL NS IVPB 500 MCG/100 ML BAG IVPB SCH ×2 (00:57→03:16)
[2022-04-04] MEDS: PIPERACILLIN/TAZOB 2.25 GM 2.25 GM in DEXTROSE 5%-WATER - 50 ML IVPB SCH ×3 (01:12→17:50)
[2022-04-04 05:57] LABS: ARTERIAL BLD GAS O2 SATURATION 99.5 % (95-98); ARTERIAL BLOOD GAS BASE EXCESS -4.1 mmol/L (-2-2); ARTERIAL BLOOD GAS PO2 209.1 mmHg (80-100); ARTERIAL BLOOD GAS pH 7.453 (7.350-7.450)
[2022-04-04 05:59] LABS: VENT MODE V-A/C; VENT RATE 16
[2022-04-04 06:50] LABS: HEMATOCRIT 21.1 % (35.4-49); MEAN CELL VOLUME 96.8 fl (80-96); MEAN PLT VOLUME 7.5 fl (7.5-11.1); PLATELET COUNT 168 10^3/uL (134-434); RBC 2.18 M/mm3 (4.00-5.60); RDW 20.3 % (11.9-15.9); WHITE BLOOD COUNT 15.8 K/mm3 (4.0-10.0)
[2022-04-04 07:05] LABS: CALCIUM 8.6 mg/dL (8.5-10.1)
[2022-04-04 07:06] LABS: BLOOD UREA NITROGEN 75.4 mg/dL (7-18)
[2022-04-04 07:09] LABS: CREATININE 1.9 mg/dL (0.55-1.3)
[2022-04-04] MEDS ORDERED: SODIUM CHLORIDE 250 ML IV PRN (08:49)
[2022-04-04] MEDS ORDERED: EPOETIN ALFA-EPBX 4,000 UNIT/ML VIAL SQ ONE (09:00)
[2022-04-04] MEDS ORDERED: FENTANYL NS IVPB 500 MCG/100 ML BAG IVPB SCH (10:30)
[2022-04-04] MEDS: PANTOPRAZOLE SODIUM 40 MG VIAL IVPUSH SCH (11:52)
[2022-04-04] MEDS: HEPARIN NA (PORCINE) 5,000 UNITS/ML 1ML VIAL SQ SCH ×2 (11:52→21:05)
[2022-04-04] MEDS: AMINO ACIDS/PROTEIN HYDROLYS 30 ML LIQUID.PKT GT SCH ×2 (11:52→17:50)
[2022-04-04] MEDS: MUPIROCIN 2% TOPICAL OINTMENT FOR DECOLONIZATION NS SCH ×2 (11:52→21:05)
[2022-04-04] MEDS: REMDESIVIR 100 MG in SODIUM CHLORIDE 250 ML IVPB SCH (11:52)
[2022-04-04 12:49] LABS: ANISOCYTOSIS 2+; MACROCYTOSIS 0
[2022-04-04] MEDS: CHLORHEXIDINE GLUCONATE 4% CLEANSER FOR DECOLONIZATION TP SCH (21:05)
[2022-04-05] MEDS: PIPERACILLIN/TAZOB 2.25 GM 2.25 GM in DEXTROSE 5%-WATER - 50 ML IVPB SCH ×3 (01:04→17:16)
[2022-04-05 06:42] LABS: HEMATOCRIT 22.3 % (35.4-49); HEMOGLOBIN 7.1 GM/dL (11.7-16.9); MCHC 31.8 g/dl (32.0-35.9); MEAN CELL VOLUME 97.3 fl (80-96); MEAN PLT VOLUME 7.1 fl (7.5-11.1); PLATELET COUNT 159 10^3/uL (134-434); RBC 2.29 M/mm3 (4.00-5.60); RDW 21.3 % (11.9-15.9); WHITE BLOOD COUNT 12.4 K/mm3 (4.0-10.0)
[2022-04-05 06:56] LABS: CALCIUM 8.4 mg/dL (8.5-10.1)
[2022-04-05 06:57] LABS: ALBUMIN 1.3 g/dl (3.4-5.0); MAGNESIUM 1.8 mg/dL (1.8-2.4)
[2022-04-05 07:00] LABS: CREATININE 1.4 mg/dL (0.55-1.3); PHOSPHOROUS 2.6 mg/dL (2.5-4.9)
[2022-04-05 07:02] LABS: TOT PROT 5.4 g/dl (6.4-8.2)
[2022-04-05 07:04] LABS: BILIRUBIN,TOTAL 0.5 mg/dL (0.2-1)
[2022-04-05 07:05] LABS: N-TERMINAL BNP 14553.4 pg/ml (5-125)
[2022-04-05 07:34] LABS: BLOOD UREA NITROGEN 46.8 mg/dL (7-18)
[2022-04-05 09:14] LABS: ANISOCYTOSIS 1+; MACROCYTOSIS 1+
[2022-04-05] MEDS: PANTOPRAZOLE SODIUM 40 MG VIAL IVPUSH SCH (09:43)
[2022-04-05] MEDS: AMINO ACIDS/PROTEIN HYDROLYS 30 ML LIQUID.PKT GT SCH ×2 (09:44→17:17)
[2022-04-05] MEDS: MUPIROCIN 2% TOPICAL OINTMENT FOR DECOLONIZATION NS SCH ×2 (09:44→22:12)
[2022-04-05] MEDS: HEPARIN NA (PORCINE) 5,000 UNITS/ML 1ML VIAL SQ SCH ×2 (09:44→22:12)
[2022-04-05] MEDS: REMDESIVIR 100 MG in SODIUM CHLORIDE 250 ML IVPB SCH (12:14)
[2022-04-05] MEDS: CHLORHEXIDINE GLUCONATE 4% CLEANSER FOR DECOLONIZATION TP SCH (22:12)
[2022-04-06] MEDS: PIPERACILLIN/TAZOB 2.25 GM 2.25 GM in DEXTROSE 5%-WATER - 50 ML IVPB SCH ×3 (01:12→18:10)
[2022-04-06 07:30] LABS: HEMATOCRIT 20.6 % (35.4-49); MCH 30.9 pg (25.7-33.7); MCHC 31.6 g/dl (32.0-35.9); MEAN CELL VOLUME 97.6 fl (80-96); MEAN PLT VOLUME 7.5 fl (7.5-11.1); PLATELET COUNT 139 10^3/uL (134-434); RBC 2.11 M/mm3 (4.00-5.60); RDW 21.5 % (11.9-15.9); WHITE BLOOD COUNT 13.6 K/mm3 (4.0-10.0)
[2022-04-06 07:48] LABS: HEMOGLOBIN 6.5 GM/dL (11.7-16.9)
[2022-04-06 08:03] LABS: ALBUMIN 1.2 g/dl (3.4-5.0); BLOOD UREA NITROGEN 65.2 mg/dL (7-18); CALCIUM 8.4 mg/dL (8.5-10.1)
[2022-04-06 08:06] LABS: CREATININE 1.8 mg/dL (0.55-1.3)
[2022-04-06 08:07] LABS: BILIRUBIN,TOTAL 0.3 mg/dL (0.2-1); TOT PROT 5.2 g/dl (6.4-8.2)
[2022-04-06 08:43] LABS: ANISOCYTOSIS 2+; MACROCYTOSIS 0
[2022-04-06] MEDS: HEPARIN NA (PORCINE) 5,000 UNITS/ML 1ML VIAL SQ SCH ×2 (09:48→21:33)
[2022-04-06] MEDS: PANTOPRAZOLE SODIUM 40 MG VIAL IVPUSH SCH (09:48)
[2022-04-06] MEDS: MUPIROCIN 2% TOPICAL OINTMENT FOR DECOLONIZATION NS SCH ×2 (09:49→21:33)
[2022-04-06] MEDS: AMINO ACIDS/PROTEIN HYDROLYS 30 ML LIQUID.PKT GT SCH ×2 (09:49→18:10)
[2022-04-06] MEDS ORDERED: SODIUM CHLORIDE 250 ML IV PRN (10:08)
[2022-04-06] MEDS: REMDESIVIR 100 MG in SODIUM CHLORIDE 250 ML IVPB SCH (12:29)
[2022-04-06 12:43] VITALS: BMI 16.8
[2022-04-06] MEDS: CHLORHEXIDINE GLUCONATE 4% CLEANSER FOR DECOLONIZATION TP SCH (21:34)
[2022-04-07] MEDS: PIPERACILLIN/TAZOB 2.25 GM 2.25 GM in DEXTROSE 5%-WATER - 50 ML IVPB SCH ×3 (02:01→17:54)
[2022-04-07 07:34] LABS: HEMATOCRIT 28.2 % (35.4-49); HEMOGLOBIN 9.2 GM/dL (11.7-16.9); MCH 30.1 pg (25.7-33.7); MCHC 32.7 g/dl (32.0-35.9); MEAN CELL VOLUME 92.2 fl (80-96); MEAN PLT VOLUME 7.1 fl (7.5-11.1); PLATELET COUNT 137 10^3/uL (134-434); RBC 3.06 M/mm3 (4.00-5.60); WHITE BLOOD COUNT 11.2 K/mm3 (4.0-10.0)
[2022-04-07 08:03] LABS: ALBUMIN 1.3 g/dl (3.4-5.0); CALCIUM 8.4 mg/dL (8.5-10.1)
[2022-04-07 08:04] LABS: MAGNESIUM 1.8 mg/dL (1.8-2.4)
[2022-04-07 08:06] LABS: CREATININE 1.2 mg/dL (0.55-1.3); PHOSPHOROUS 3.4 mg/dL (2.5-4.9)
[2022-04-07 08:08] LABS: BILIRUBIN,TOTAL 0.4 mg/dL (0.2-1); TOT PROT 5.3 g/dl (6.4-8.2)
[2022-04-07 08:31] LABS: BLOOD UREA NITROGEN 35.2 mg/dL (7-18)
[2022-04-07 08:47] LABS: ANISOCYTOSIS 2+; MACROCYTOSIS 0
[2022-04-07] MEDS: AMINO ACIDS/PROTEIN HYDROLYS 30 ML LIQUID.PKT GT SCH ×2 (09:51→17:54)
[2022-04-07] MEDS: HEPARIN NA (PORCINE) 5,000 UNITS/ML 1ML VIAL SQ SCH ×2 (09:51→21:10)
[2022-04-07] MEDS: PANTOPRAZOLE SODIUM 40 MG VIAL IVPUSH SCH (09:52)
[2022-04-07] MEDS: CHLORHEXIDINE GLUCONATE 4% CLEANSER FOR DECOLONIZATION TP SCH (21:11)
[2022-04-08] MEDS: PIPERACILLIN/TAZOB 2.25 GM 2.25 GM in DEXTROSE 5%-WATER - 50 ML IVPB SCH ×3 (01:01→18:00)
[2022-04-08 07:26] LABS: HEMATOCRIT 27.4 % (35.4-49); MCH 30.8 pg (25.7-33.7); MCHC 32.8 g/dl (32.0-35.9); MEAN PLT VOLUME 7.7 fl (7.5-11.1); PLATELET COUNT 137 10^3/uL (134-434); RBC 2.91 M/mm3 (4.00-5.60); WHITE BLOOD COUNT 11.2 K/mm3 (4.0-10.0)
[2022-04-08 07:40] LABS: CALCIUM 8.3 mg/dL (8.5-10.1)
[2022-04-08 07:41] LABS: ALBUMIN 1.2 g/dl (3.4-5.0); BLOOD UREA NITROGEN 53.6 mg/dL (7-18); MAGNESIUM 1.9 mg/dL (1.8-2.4)
[2022-04-08 07:44] LABS: CREATININE 1.7 mg/dL (0.55-1.3); PHOSPHOROUS 4.9 mg/dL (2.5-4.9)
[2022-04-08 07:45] LABS: BILIRUBIN,TOTAL 0.4 mg/dL (0.2-1)
[2022-04-08 07:46] LABS: TOT PROT 5.2 g/dl (6.4-8.2)
[2022-04-08] MEDS ORDERED: SODIUM CHLORIDE 250 ML IV PRN (09:15)
[2022-04-08] MEDS ORDERED: EPOETIN ALFA-EPBX 10,000 UNIT/ML VIAL SQ ONE (10:00)
[2022-04-08] MEDS: HEPARIN NA (PORCINE) 5,000 UNITS/ML 1ML VIAL SQ SCH ×2 (11:24→21:13)
[2022-04-08] MEDS: PANTOPRAZOLE SODIUM 40 MG VIAL IVPUSH SCH (11:24)
[2022-04-08] MEDS: AMINO ACIDS/PROTEIN HYDROLYS 30 ML LIQUID.PKT GT SCH ×2 (11:25→18:00)
[2022-04-08] MEDS: CHLORHEXIDINE GLUCONATE 4% CLEANSER FOR DECOLONIZATION TP SCH (21:14)
[2022-04-09] MEDS: PIPERACILLIN/TAZOB 2.25 GM 2.25 GM in DEXTROSE 5%-WATER - 50 ML IVPB SCH ×2 (03:09→09:42)
[2022-04-09] MEDS: AMINO ACIDS/PROTEIN HYDROLYS 30 ML LIQUID.PKT GT SCH ×2 (08:03→17:06)
[2022-04-09 09:18] LABS: HEMOGLOBIN 10.3 GM/dL (11.7-16.9); MCH 30.4 pg (25.7-33.7); MCHC 32.2 g/dl (32.0-35.9); MEAN CELL VOLUME 94.2 fl (80-96); MEAN PLT VOLUME 7.2 fl (7.5-11.1); PLATELET COUNT 136 10^3/uL (134-434); RBC 3.39 M/mm3 (4.00-5.60); RDW 21.6 % (11.9-15.9); WHITE BLOOD COUNT 17.6 K/mm3 (4.0-10.0)
[2022-04-09 09:38] LABS: CHLORIDE 101 mmol/L (98-107); SODIUM 140 mmol/L (136-145)
[2022-04-09 09:41] LABS: CALCIUM 8.3 mg/dL (8.5-10.1)
[2022-04-09 09:42] LABS: ALBUMIN 1.3 g/dl (3.4-5.0); BLOOD UREA NITROGEN 38.3 mg/dL (7-18); CO2 29 mmol/L (21-32); MAGNESIUM 1.8 mg/dL (1.8-2.4)
[2022-04-09] MEDS: PANTOPRAZOLE SODIUM 40 MG VIAL IVPUSH SCH (09:42)
[2022-04-09 09:43] LABS: GLUCOSE,RANDOM 135 mg/dL (74-106)
[2022-04-09 09:45] LABS: CREATININE 1.4 mg/dL (0.55-1.3); PHOSPHOROUS 3.2 mg/dL (2.5-4.9); SGOT/AST 24 U/L (15-37); SGPT/ALT 43 U/L (13-61)
[2022-04-09 09:47] LABS: BILIRUBIN,TOTAL 0.5 mg/dL (0.2-1); TOT PROT 5.7 g/dl (6.4-8.2)
[2022-04-09 09:52] LABS: ALK PHOS 203 U/L (45-117); ANION GAP 11 MMOL/L (8-16)
[2022-04-09] MEDS ORDERED: POTASSIUM CHLORIDE ORAL LIQUID 20 MEQ/15 ML PO ONE (11:46)
[2022-04-09] MEDS: CHLORHEXIDINE GLUCONATE 4% CLEANSER FOR DECOLONIZATION TP SCH (22:21)
[2022-04-10] MEDS: PANTOPRAZOLE SODIUM 40 MG VIAL IVPUSH SCH (09:19)
[2022-04-10] MEDS: AMINO ACIDS/PROTEIN HYDROLYS 30 ML LIQUID.PKT GT SCH ×2 (09:19→17:11)
[2022-04-10 09:23] LABS: HEMATOCRIT 32.9 % (35.4-49); HEMOGLOBIN 10.6 GM/dL (11.7-16.9); MCH 30.7 pg (25.7-33.7); MCHC 32.3 g/dl (32.0-35.9); MEAN CELL VOLUME 95.3 fl (80-96); MEAN PLT VOLUME 7.5 fl (7.5-11.1); PLATELET COUNT 115 10^3/uL (134-434); RBC 3.45 M/mm3 (4.00-5.60); RDW 20.8 % (11.9-15.9); WHITE BLOOD COUNT 10.5 K/mm3 (4.0-10.0)
[2022-04-10 09:52] LABS: ALBUMIN 1.2 g/dl (3.4-5.0); BLOOD UREA NITROGEN 59.4 mg/dL (7-18); CALCIUM 8.5 mg/dL (8.5-10.1); MAGNESIUM 1.9 mg/dL (1.8-2.4)
[2022-04-10 09:55] LABS: CREATININE 1.9 mg/dL (0.55-1.3); PHOSPHOROUS 3.9 mg/dL (2.5-4.9)
[2022-04-10 09:56] LABS: BILIRUBIN,TOTAL 0.6 mg/dL (0.2-1)
[2022-04-10 09:57] LABS: TOT PROT 5.3 g/dl (6.4-8.2)
[2022-04-10] MEDS: CHLORHEXIDINE GLUCONATE 4% CLEANSER FOR DECOLONIZATION TP SCH (23:37)
[2022-04-11] MEDS: PANTOPRAZOLE SODIUM 40 MG VIAL IVPUSH SCH ×2 (10:56→11:09)
[2022-04-11] MEDS: AMINO ACIDS/PROTEIN HYDROLYS 30 ML LIQUID.PKT GT SCH ×2 (10:56→17:29)
[2022-04-11 12:06] LABS: HEMATOCRIT 30.1 % (35.4-49); HEMOGLOBIN 9.8 GM/dL (11.7-16.9); MCHC 32.6 g/dl (32.0-35.9); MEAN PLT VOLUME 8.1 fl (7.5-11.1); PLATELET COUNT 135 10^3/uL (134-434); RBC 3.17 M/mm3 (4.00-5.60); WHITE BLOOD COUNT 12.3 K/mm3 (4.0-10.0)
[2022-04-11 12:17] LABS: ALBUMIN 1.2 g/dl (3.4-5.0); BLOOD UREA NITROGEN 79.9 mg/dL (7-18); CALCIUM 8.6 mg/dL (8.5-10.1); MAGNESIUM 2.1 mg/dL (1.8-2.4)
[2022-04-11 12:20] LABS: PHOSPHOROUS 4.6 mg/dL (2.5-4.9)
[2022-04-11 12:21] LABS: CREATININE 2.4 mg/dL (0.55-1.3)
[2022-04-11 12:22] LABS: TOT PROT 5.3 g/dl (6.4-8.2)
[2022-04-11 12:25] LABS: BILIRUBIN,TOTAL 0.3 mg/dL (0.2-1)
[2022-04-11] MEDS ORDERED: CHLORHEXIDINE GLUCONATE 4% CLEANSER FOR DECOLONIZATION TP SCH (22:00)
[2022-04-12 09:06] LABS: HEMATOCRIT 30.4 % (35.4-49); HEMOGLOBIN 9.8 GM/dL (11.7-16.9); MCH 30.9 pg (25.7-33.7); MCHC 32.3 g/dl (32.0-35.9); MEAN CELL VOLUME 95.5 fl (80-96); PLATELET COUNT 98 10^3/uL (134-434); RBC 3.18 M/mm3 (4.00-5.60); RDW 20.3 % (11.9-15.9); WHITE BLOOD COUNT 9.6 K/mm3 (4.0-10.0)
[2022-04-12] MEDS ORDERED: MAGNESIUM HYDROX 2400MG/30ML ORAL SUSPENSION 30 ML CUP PO SCH ×2 (09:30→10:41)
[2022-04-12 10:09] LABS: PHOSPHOROUS 5.4 mg/dL (2.5-4.9)
[2022-04-12 10:11] LABS: ALBUMIN 1.1 g/dl (3.4-5.0); BILIRUBIN,TOTAL 0.3 mg/dL (0.2-1); BLOOD UREA NITROGEN 90.8 mg/dL (7-18); TOT PROT 5.1 g/dl (6.4-8.2)
[2022-04-12 10:12] LABS: CALCIUM 8.5 mg/dL (8.5-10.1)
[2022-04-12 10:14] LABS: MAGNESIUM 2.1 mg/dL (1.8-2.4)
[2022-04-12 10:15] LABS: CREATININE 2.8 mg/dL (0.55-1.3)
[2022-04-12] MEDS ORDERED: MAGNESIUM HYDROX 2400MG/30ML ORAL SUSPENSION 30 ML CUP PO PRN (11:20)
[2022-04-12] MEDS: ZINC SULFATE 220 MG CAPSULE (FP) GT SCH (11:28)
[2022-04-12] MEDS: VITAMIN B COMP W-C 1 EA TABLET (NEPHRO-VITE) GT SCH (11:28)
[2022-04-12] MEDS: PANTOPRAZOLE SODIUM 40 MG VIAL IVPUSH SCH ×2 (11:28→19:22)
[2022-04-12] MEDS: AMINO ACIDS/PROTEIN HYDROLYS 30 ML LIQUID.PKT GT SCH ×2 (11:28→17:10)
[2022-04-12] MEDS ORDERED: ATORVASTATIN CA 40 MG TABLET (FP) GT SCH (22:00)
[2022-04-13 07:50] VITALS: RESP 16
[2022-04-13] MEDS: AMINO ACIDS/PROTEIN HYDROLYS 30 ML LIQUID.PKT GT SCH (09:21)
[2022-04-13] MEDS: ZINC SULFATE 220 MG CAPSULE (FP) GT SCH (09:22)
[2022-04-13] MEDS: VITAMIN B COMP W-C 1 EA TABLET (NEPHRO-VITE) GT SCH (09:22)
[2022-04-13 09:59] LABS: HEMATOCRIT 27.5 % (35.4-49); HEMOGLOBIN 9.1 GM/dL (11.7-16.9); MCH 31.6 pg (25.7-33.7); MCHC 32.9 g/dl (32.0-35.9); MEAN CELL VOLUME 95.9 fl (80-96); MEAN PLT VOLUME 8.1 fl (7.5-11.1); PLATELET COUNT 90 10^3/uL (134-434); RBC 2.87 M/mm3 (4.00-5.60); RDW 20.5 % (11.9-15.9); WHITE BLOOD COUNT 10.7 K/mm3 (4.0-10.0)
[2022-04-13 10:26] LABS: ALBUMIN 1.1 g/dl (3.4-5.0); CALCIUM 8.3 mg/dL (8.5-10.1); MAGNESIUM 1.9 mg/dL (1.8-2.4)
[2022-04-13 10:28] LABS: PHOSPHOROUS 3.2 mg/dL (2.5-4.9)
[2022-04-13 10:30] LABS: CREATININE 1.8 mg/dL (0.55-1.3)
[2022-04-13 10:31] LABS: BILIRUBIN,TOTAL 0.5 mg/dL (0.2-1); TOT PROT 5.3 g/dl (6.4-8.2)
[2022-04-13 12:12] VITALS: BP 153/80; PULSE 98; TEMP 97.9
== END 2022-04-13 13:45 | DRG 870 ==
LOC: JER 23:18 → JERBED 04-02 00:03 → JICU 04-02 02:20 → J5S 04-08 17:51
PROVIDERS: ADMIT Internal Medicine; ATTEND Internal Medicine
PROC: 4A133B1 Monitoring of Arterial Pressure, Peripheral, Percutaneous Approach (ICD-10-PCS; principal; 2022-04-02)
PROC: 5A1955Z Respiratory Ventilation, Greater than 96 Consecutive Hours (ICD-10-PCS; 2022-04-02)
PROC: 4A133J1 Monitoring of Arterial Pulse, Peripheral, Percutaneous Approach (ICD-10-PCS; 2022-04-02)
PROC: XW033E5 Introduction of Remdesivir Anti-infective into Peripheral Vein, Percutaneous Approach, New Technology Group 5 (ICD-10-PCS; 2022-04-02)
PROC: 5A1D70Z Performance of Urinary Filtration, Intermittent, Less than 6 Hours Per Day (ICD-10-PCS; 2022-04-06)
PROC: 30233N1 Transfusion of Nonautologous Red Blood Cells into Peripheral Vein, Percutaneous Approach (ICD-10-PCS; 2022-04-06)
PROC: 5A1D70Z Performance of Urinary Filtration, Intermittent, Less than 6 Hours Per Day (ICD-10-PCS; 2022-04-08)
PROC: 5A1D70Z Performance of Urinary Filtration, Intermittent, Less than 6 Hours Per Day (ICD-10-PCS; 2022-04-12)
DX: A41.89 Other specified sepsis (principal); U07.1 COVID-19; E43 Unspecified severe protein-calorie malnutrition; I46.9 Cardiac arrest, cause unspecified; J69.0 Pneumonitis due to inhalation of food and vomit; N18.6 End stage renal disease; J96.21 Acute and chronic respiratory failure with hypoxia; R64 Cachexia; Z68.1 Body mass index [BMI] 19.9 or less, adult; N39.0 Urinary tract infection, site not specified; I12.0 Hypertensive chronic kidney disease with stage 5 chronic kidney disease or end stage renal disease; E87.20 Acidosis, unspecified; E87.1 Hypo-osmolality and hyponatremia; Z99.11 Dependence on respirator [ventilator] status; F03.90 Unspecified dementia, unspecified severity, without behavioral disturbance, psychotic disturbance, mood disturbance, and anxiety; B96.20 Unspecified Escherichia coli [E. coli] as the cause of diseases classified elsewhere; D72.829 Elevated white blood cell count, unspecified; R13.10 Dysphagia, unspecified; D63.8 Anemia in other chronic diseases classified elsewhere; Z86.73 Personal history of transient ischemic attack (TIA), and cerebral infarction without residual deficits; Z99.2 Dependence on renal dialysis; E87.6 Hypokalemia; Z74.01 Bed confinement status; I95.9 Hypotension, unspecified
CPT/HCPCS: 0241U-QW; 36415; 36430; 36600; 70450-TC; 71045-TC-FY; 80048; 80053; 81003; 82550; 82553; 82803; 82962; 83605; 83735; 83880; 84100; 84484; 85025; 85027; 85610; 85730; 86316; 86803; 86850; 86900; 86901; 86922; 87040; 87070; 87086; 87186; 87205; 87340; 93005; 93010; 93306-TC; 94002; 97161-GP; 99285-25; C9399; C9803-CS; G0480; J1644; P9058; Q5106; U0003; U0005

== ENCOUNTER 2022-05-11 11:56 | Inpatient (IN) | payer OTHER ==
[2022-05-11] MEDS ORDERED: SODIUM CHLORIDE 500 ML IV STA (12:29)
[2022-05-11 13:29] LABS: VENOUS O2 SATURATION 98.2 % (70-80); VENOUS PCO2 37.3 mmHg (38-52); VENOUS PH 7.446 (7.310-7.410)
[2022-05-11 13:33] LABS: HEMATOCRIT 20.5 % (35.4-49); MCH 30.2 pg (25.7-33.7); MEAN CELL VOLUME 94.4 fl (80-96); MEAN PLT VOLUME 7.9 fl (7.5-11.1); PLATELET COUNT 234 10^3/uL (134-434); RBC 2.17 M/mm3 (4.00-5.60); RDW 17.9 % (11.9-15.9); WHITE BLOOD COUNT 23.1 K/mm3 (4.0-10.0)
[2022-05-11 13:34] LABS: HEMOGLOBIN 6.6 GM/dL (11.7-16.9)
[2022-05-11 13:41] LABS: INR 1.44 (0.83-1.09); PROTHROMBIN TIME (PATIENT) 16.7 SEC (9.7-13.0)
[2022-05-11 13:43] LABS: ACTIVATED PTT 67.2 SECONDS (25.2-36.5)
[2022-05-11 13:48] LABS: PH,URINE 6.6 (5.0-8.0); URINE APPEARANCE TURBID; URINE BILIRUBIN 1+ (NEGATIVE); URINE COLOR ORANGE; URINE GLUCOSE (UA) NEGATIVE (NEGATIVE); URINE KETONE NEGATIVE (NEGATIVE)
[2022-05-11 13:49] LABS: URINE LEUK ESTERASE 3+ (NEGATIVE); URINE NITRITE NEGATIVE (NEGATIVE); URINE PROTEIN 3+ (NEGATIVE); URINE UROBILINOGEN 0.2 mg/dL (0.2-1.0)
[2022-05-11 13:52] LABS: EPI CELLS 422 /uL (0-25.1); HYALINE CASTS 2323 /uL (0-3.1); URINE RBC 84 /uL (0-23.9); URINE WBC 33166 /uL (0-25.8)
[2022-05-11 13:53] LABS: URINE BACTERIA 1930 /uL (0-1359)
[2022-05-11 13:56] LABS: ANISOCYTOSIS 0; MACROCYTOSIS 0
[2022-05-11] MEDS ORDERED: VANCOMYCIN 1 GM in D5W (PRE-DOCKED) 1,000 MG/250 ML IVPB ONE (14:11)
[2022-05-11] MEDS ORDERED: PIPERACILLIN/TAZOB 2.25 GM 2.25 GM in DEXTROSE 5%-WATER - 50 ML IVPB ONE (14:12)
[2022-05-11] MEDS ORDERED: PIPERACILLIN/TAZOB 2.25 GM 2.25 GM/50 ML BAG IVPB ONE (14:14)
[2022-05-11] MEDS ORDERED: VANCOMYCIN/WATER FOR INJ (PEG) 1,000 MG/200 ML BAG IVPB ONE (14:14)
[2022-05-11 14:34] LABS: CHLORIDE 94 mmol/L (98-107); SODIUM 129 mmol/L (136-145)
[2022-05-11 14:36] LABS: ALBUMIN 1.1 g/dl (3.4-5.0); ANION GAP 9 MMOL/L (8-16); CO2 26 mmol/L (21-32); GLUCOSE,RANDOM 176 mg/dL (74-106)
[2022-05-11 14:39] LABS: SGOT/AST 113 U/L (15-37); SGPT/ALT 106 U/L (13-61)
[2022-05-11 14:40] LABS: BILIRUBIN,TOTAL 0.2 mg/dL (0.2-1)
[2022-05-11 14:41] LABS: TOT PROT 5.9 g/dl (6.4-8.2)
[2022-05-11 14:42] LABS: ALK PHOS 263 U/L (45-117)
[2022-05-11 14:54] LABS: BLOOD UREA NITROGEN 124.2 mg/dL (7-18)
[2022-05-11] MEDS ORDERED: MEROPENEM 500 MG in DEXTROSE 5%-WATER 100 ML IVPB SCH (16:15)
[2022-05-11] MEDS ORDERED: metoPROLOL SUCCINATE 25 MG TAB.SR.24H (FP) PO SCH (16:30)
[2022-05-11] MEDS ORDERED: LACTATED RINGERS SOLUTION 1,000 ML/1,000 ML INFUS.BAG IV SCH ×3 (16:30→17:35)
[2022-05-11] MEDS ORDERED: SODIUM CHLORIDE 250 ML IV PRN (18:43)
[2022-05-11] MEDS ORDERED: PANTOPRAZOLE SODIUM 40 MG VIAL ONE (19:39)
[2022-05-11] MEDS: PANTOPRAZOLE SODIUM 40 MG VIAL IVPUSH SCH (19:45)
[2022-05-11] MEDS: COLLAGENASE CLOSTRIDIUM HIST. 30 GRAMS TUBE TP SCH (22:12)
[2022-05-11] MEDS: DEXTROSE 5%-LACTATED RINGERS 1,000 ML IV SCH (22:22)
[2022-05-12] MEDS: DEXTROSE 5%-LACTATED RINGERS 1,000 ML IV SCH (00:04)
[2022-05-12 02:56] LABS: HEMATOCRIT 22.6 % (35.4-49); MCH 30.2 pg (25.7-33.7); MCHC 33.3 g/dl (32.0-35.9); MEAN CELL VOLUME 90.7 fl (80-96); MEAN PLT VOLUME 7.6 fl (7.5-11.1); PLATELET COUNT 157 10^3/uL (134-434); RBC 2.49 M/mm3 (4.00-5.60); RDW 18.4 % (11.9-15.9); WHITE BLOOD COUNT 18.7 K/mm3 (4.0-10.0)
[2022-05-12 03:00] LABS: HEMOGLOBIN 7.5 GM/dL (11.7-16.9)
[2022-05-12 06:23] LABS: HEMATOCRIT 23.4 % (35.4-49); MCH 30.6 pg (25.7-33.7); MCHC 34.2 g/dl (32.0-35.9); MEAN CELL VOLUME 89.4 fl (80-96); MEAN PLT VOLUME 7.9 fl (7.5-11.1); PLATELET COUNT 201 10^3/uL (134-434); RBC 2.61 M/mm3 (4.00-5.60); RDW 17.8 % (11.9-15.9); WHITE BLOOD COUNT 19.4 K/mm3 (4.0-10.0)
[2022-05-12 06:44] LABS: CHLORIDE 96 mmol/L (98-107); SODIUM 129 mmol/L (136-145)
[2022-05-12 06:46] LABS: ANION GAP 8 MMOL/L (8-16); CALCIUM 8.9 mg/dL (8.5-10.1); CO2 25 mmol/L (21-32)
[2022-05-12 06:47] LABS: GLUCOSE,RANDOM 84 mg/dL (74-106)
[2022-05-12 06:49] LABS: CREATININE 2.2 mg/dL (0.55-1.3); SGPT/ALT 105 U/L (13-61)
[2022-05-12 06:50] LABS: SGOT/AST 95 U/L (15-37)
[2022-05-12 06:51] LABS: BILIRUBIN,TOTAL 0.5 mg/dL (0.2-1); TOT PROT 5.4 g/dl (6.4-8.2)
[2022-05-12 07:07] LABS: ALK PHOS 185 U/L (45-117); BLOOD UREA NITROGEN 132.6 mg/dL (7-18)
[2022-05-12] MEDS ORDERED: MEROPENEM 500 MG in DEXTROSE 5%-WATER 100 ML IVPB SCH (10:00)
[2022-05-12] MEDS: PANTOPRAZOLE SODIUM 40 MG VIAL IVPUSH SCH (10:04)
[2022-05-12] MEDS: METOPROLOL TARTRATE 25 MG TABLET (FP) GT SCH (10:05)
[2022-05-12 10:49] LABS: ANISOCYTOSIS 0; MACROCYTOSIS 0
[2022-05-12] MEDS ORDERED: EPOETIN ALFA-EPBX 10,000 UNIT/ML VIAL IVPUSH ONE (12:15)
[2022-05-12] MEDS ORDERED: VANCOMYCIN/WATER FOR INJ (PEG) 1,000 MG/200 ML BAG IVPB ONE (13:04)
[2022-05-12] MEDS: PIPERACILLIN/TAZOB 2.25 GM 2.25 GM in DEXTROSE 5%-WATER - 50 ML IVPB SCH (17:37)
[2022-05-12] MEDS: ATORVASTATIN CA 40 MG TABLET (FP) GT SCH (21:03)
[2022-05-13] MEDS: PIPERACILLIN/TAZOB 2.25 GM 2.25 GM in DEXTROSE 5%-WATER - 50 ML IVPB SCH ×3 (02:10→17:32)
[2022-05-13 06:43] LABS: HEMATOCRIT 25.8 % (35.4-49); HEMOGLOBIN 8.5 GM/dL (11.7-16.9); MCH 30.2 pg (25.7-33.7); MCHC 33.1 g/dl (32.0-35.9); MEAN CELL VOLUME 91.3 fl (80-96); MEAN PLT VOLUME 7.7 fl (7.5-11.1); PLATELET COUNT 218 10^3/uL (134-434); RBC 2.82 M/mm3 (4.00-5.60); RDW 18.3 % (11.9-15.9); WHITE BLOOD COUNT 13.4 K/mm3 (4.0-10.0)
[2022-05-13 07:16] LABS: CALCIUM 8.4 mg/dL (8.5-10.1)
[2022-05-13 07:17] LABS: ALBUMIN 1.1 g/dl (3.4-5.0); MAGNESIUM 1.8 mg/dL (1.8-2.4)
[2022-05-13 07:19] LABS: PHOSPHOROUS 1.9 mg/dL (2.5-4.9)
[2022-05-13 07:20] LABS: BILIRUBIN,TOTAL 0.6 mg/dL (0.2-1); CREATININE 1.2 mg/dL (0.55-1.3); TOT PROT 5.6 g/dl (6.4-8.2)
[2022-05-13 07:49] LABS: BLOOD UREA NITROGEN 49.5 mg/dL (7-18)
[2022-05-13 09:14] LABS: ANISOCYTOSIS 0; HELMET CELLS 0; HOWELL-JOLLY BODIES 0; MACROCYTOSIS 0; OVALOCYTE 0; ROULEAU 0; SICKELED CELLS 0; TARGET CELLS 0; TEAR DROP CELLS 0; TOXIC GRANULATION 0
[2022-05-13] MEDS: METOPROLOL TARTRATE 25 MG TABLET (FP) GT SCH (10:19)
[2022-05-13] MEDS: ACETAMINOPHEN 650 MG/20.3 ML ORAL SOLUTION (CUPS) GT PRN (10:19)
[2022-05-13] MEDS: PANTOPRAZOLE SODIUM 40 MG VIAL IVPUSH SCH (10:20)
[2022-05-13] MEDS: AMINO ACIDS/PROTEIN HYDROLYS 30 ML LIQUID.PKT GT SCH (17:34)
[2022-05-13] MEDS: COLLAGENASE CLOSTRIDIUM HIST. 30 GRAMS TUBE TP SCH (19:20)
[2022-05-13] MEDS: ATORVASTATIN CA 40 MG TABLET (FP) GT SCH (22:21)
[2022-05-14] MEDS: PIPERACILLIN/TAZOB 2.25 GM 2.25 GM in DEXTROSE 5%-WATER - 50 ML IVPB SCH ×3 (01:00→17:57)
[2022-05-14] MEDS ORDERED: DEXTROSE 50%-WATER - 25 GM/50 ML VIAL IVPUSH ONE (06:08)
[2022-05-14 06:58] LABS: BASO % 0.1 % (0-2.0); EOS % 1.8 % (0-4.5); HEMATOCRIT 32.9 % (35.4-49); HEMOGLOBIN 10.4 GM/dL (11.7-16.9); LYMPH % 7.1 % (8-40); MCH 29.5 pg (25.7-33.7); MCHC 31.7 g/dl (32.0-35.9); MEAN CELL VOLUME 93.3 fl (80-96); MEAN PLT VOLUME 7.8 fl (7.5-11.1); PLATELET COUNT 250 10^3/uL (134-434); RBC 3.53 M/mm3 (4.00-5.60); RDW 19.1 % (11.9-15.9); WHITE BLOOD COUNT 16.7 K/mm3 (4.0-10.0)
[2022-05-14] MEDS ORDERED: SODIUM CHLORIDE 250 ML IV PRN (07:02)
[2022-05-14] MEDS ORDERED: EPOETIN ALFA-EPBX 10,000 UNIT/ML VIAL IVPUSH ONE (07:15)
[2022-05-14 08:03] LABS: ALBUMIN 1.2 g/dl (3.4-5.0); CALCIUM 8.7 mg/dL (8.5-10.1)
[2022-05-14 08:06] LABS: PHOSPHOROUS 2.6 mg/dL (2.5-4.9)
[2022-05-14 08:07] LABS: CREATININE 1.7 mg/dL (0.55-1.3)
[2022-05-14 08:08] LABS: BILIRUBIN,TOTAL 0.4 mg/dL (0.2-1); TOT PROT 5.8 g/dl (6.4-8.2)
[2022-05-14] MEDS: PANTOPRAZOLE SODIUM 40 MG VIAL IVPUSH SCH (09:13)
[2022-05-14] MEDS: METOPROLOL TARTRATE 25 MG TABLET (FP) GT SCH (09:13)
[2022-05-14] MEDS: VITAMIN B COMP W-C 1 EA TABLET (NEPHRO-VITE) GT SCH (09:13)
[2022-05-14] MEDS: AMINO ACIDS/PROTEIN HYDROLYS 30 ML LIQUID.PKT GT SCH ×2 (09:13→17:59)
[2022-05-14] MEDS ORDERED: VITAMIN B COMP W-C 1 EA TABLET (NEPHRO-VITE) PO SCH (10:00)
[2022-05-14] MEDS: COLLAGENASE CLOSTRIDIUM HIST. 30 GRAMS TUBE TP SCH (11:00)
[2022-05-14] MEDS: ATORVASTATIN CA 40 MG TABLET (FP) GT SCH (21:07)
[2022-05-15] MEDS: PIPERACILLIN/TAZOB 2.25 GM 2.25 GM in DEXTROSE 5%-WATER - 50 ML IVPB SCH ×3 (02:44→17:39)
[2022-05-15] MEDS ORDERED: amLODIPine BESYLATE 5 MG TABLET (FP) PEG ONE (05:10)
[2022-05-15] MEDS: COLLAGENASE CLOSTRIDIUM HIST. 30 GRAMS TUBE TP SCH ×2 (07:32→10:06)
[2022-05-15] MEDS: PANTOPRAZOLE SODIUM 40 MG VIAL IVPUSH SCH (10:06)
[2022-05-15] MEDS: AMINO ACIDS/PROTEIN HYDROLYS 30 ML LIQUID.PKT GT SCH ×2 (10:07→17:39)
[2022-05-15] MEDS: VITAMIN B COMP W-C 1 EA TABLET (NEPHRO-VITE) GT SCH (10:07)
[2022-05-15] MEDS: METOPROLOL TARTRATE 50 MG TABLET (FP) GT SCH ×2 (10:07→21:28)
[2022-05-15 11:09] LABS: BASO % 0.1 % (0-2.0); EOS % 1.4 % (0-4.5); HEMATOCRIT 27.5 % (35.4-49); HEMOGLOBIN 8.8 GM/dL (11.7-16.9); LYMPH % 7.9 % (8-40); MCH 30.9 pg (25.7-33.7); MCHC 32.2 g/dl (32.0-35.9); MEAN PLT VOLUME 7.6 fl (7.5-11.1); MONO % 3.9 % (3.8-10.2); NEUT % 86.7 % (42.8-82.8); PLATELET COUNT 192 10^3/uL (134-434); RBC 2.86 M/mm3 (4.00-5.60)
[2022-05-15] MEDS: ATORVASTATIN CA 40 MG TABLET (FP) GT SCH (21:28)
[2022-05-16] MEDS: PIPERACILLIN/TAZOB 2.25 GM 2.25 GM in DEXTROSE 5%-WATER - 50 ML IVPB SCH ×2 (01:09→09:57)
[2022-05-16] MEDS: ACETAMINOPHEN 650 MG/20.3 ML ORAL SOLUTION (CUPS) GT PRN (09:57)
[2022-05-16] MEDS: AMINO ACIDS/PROTEIN HYDROLYS 30 ML LIQUID.PKT GT SCH ×2 (09:57→17:44)
[2022-05-16] MEDS: METOPROLOL TARTRATE 50 MG TABLET (FP) GT SCH ×2 (09:58→21:18)
[2022-05-16] MEDS: VITAMIN B COMP W-C 1 EA TABLET (NEPHRO-VITE) GT SCH (09:58)
[2022-05-16] MEDS: PANTOPRAZOLE SODIUM 40 MG VIAL IVPUSH SCH (09:58)
[2022-05-16] MEDS: COLLAGENASE CLOSTRIDIUM HIST. 30 GRAMS TUBE TP SCH (09:58)
[2022-05-16 13:31] VITALS: BMI 17.2
[2022-05-16 13:50] LABS: HEMOGLOBIN 8.9 GM/dL (11.7-16.9); MCH 30.7 pg (25.7-33.7); MCHC 32.9 g/dl (32.0-35.9); MEAN CELL VOLUME 93.1 fl (80-96); MEAN PLT VOLUME 7.7 fl (7.5-11.1); PLATELET COUNT 189 10^3/uL (134-434); RDW 18.3 % (11.9-15.9); WHITE BLOOD COUNT 15.5 K/mm3 (4.0-10.0)
[2022-05-16 13:57] LABS: CHLORIDE 101 mmol/L (98-107); SODIUM 136 mmol/L (136-145)
[2022-05-16 13:59] LABS: BLOOD UREA NITROGEN 61.8 mg/dL (7-18); CO2 27 mmol/L (21-32); MAGNESIUM 1.6 mg/dL (1.8-2.4)
[2022-05-16 14:00] LABS: GLUCOSE,RANDOM 168 mg/dL (74-106)
[2022-05-16 14:02] LABS: CREATININE 1.9 mg/dL (0.55-1.3); SGOT/AST 290 U/L (15-37); SGPT/ALT 250 U/L (13-61)
[2022-05-16 14:03] LABS: TOT PROT 5.3 g/dl (6.4-8.2)
[2022-05-16 14:04] LABS: BILIRUBIN,TOTAL 0.3 mg/dL (0.2-1)
[2022-05-16 14:12] LABS: ALK PHOS 319 U/L (45-117); ANION GAP 8 MMOL/L (8-16); CALCIUM 8.2 mg/dL (8.5-10.1); PHOSPHOROUS 1.1 mg/dL (2.5-4.9)
[2022-05-16 14:50] LABS: ANISOCYTOSIS 1+; MACROCYTOSIS 1+
[2022-05-16 17:46] LABS: BASO % 0.4 % (0-2.0); EOS % 2.4 % (0-4.5); HEMATOCRIT 28.5 % (35.4-49); HEMOGLOBIN 9.3 GM/dL (11.7-16.9); LYMPH % 8.3 % (8-40); MCH 30.4 pg (25.7-33.7); MCHC 32.8 g/dl (32.0-35.9); MEAN CELL VOLUME 92.7 fl (80-96); MEAN PLT VOLUME 9.2 fl (7.5-11.1); MONO % 2.1 % (3.8-10.2); NEUT % 86.8 % (42.8-82.8); PLATELET COUNT 280 10^3/uL (134-434); RBC 3.07 M/mm3 (4.00-5.60); WHITE BLOOD COUNT 15.9 K/mm3 (4.0-10.0)
[2022-05-16 18:10] LABS: CHLORIDE 98 mmol/L (98-107); SODIUM 127 mmol/L (136-145)
[2022-05-16 18:12] LABS: CALCIUM 8.2 mg/dL (8.5-10.1); CO2 27 mmol/L (21-32); GLUCOSE,RANDOM 118 mg/dL (74-106)
[2022-05-16 18:15] LABS: CREATININE 1.8 mg/dL (0.55-1.3); PHOSPHOROUS 2.4 mg/dL (2.5-4.9)
[2022-05-16 18:17] LABS: TOT PROT 6.4 g/dl (6.4-8.2)
[2022-05-16 18:18] LABS: ALK PHOS 334 U/L (45-117)
[2022-05-16 18:26] LABS: ANION GAP 2 MMOL/L (8-16); SGOT/AST 589 U/L (15-37); SGPT/ALT 320 U/L (13-61)
[2022-05-16] MEDS: ATORVASTATIN CA 40 MG TABLET (FP) GT SCH (21:18)
[2022-05-17] MEDS: AMINO ACIDS/PROTEIN HYDROLYS 30 ML LIQUID.PKT GT SCH ×2 (08:38→18:03)
[2022-05-17] MEDS: PANTOPRAZOLE SODIUM 40 MG VIAL IVPUSH SCH (10:37)
[2022-05-17] MEDS: COLLAGENASE CLOSTRIDIUM HIST. 30 GRAMS TUBE TP SCH (10:37)
[2022-05-17] MEDS: VITAMIN B COMP W-C 1 EA TABLET (NEPHRO-VITE) GT SCH (10:37)
[2022-05-17] MEDS: METOPROLOL TARTRATE 50 MG TABLET (FP) GT SCH ×2 (10:37→21:01)
[2022-05-17 15:49] LABS: BASO % 0.2 % (0-2.0); EOS % 1.3 % (0-4.5); HEMATOCRIT 31.5 % (35.4-49); HEMOGLOBIN 10.2 GM/dL (11.7-16.9); LYMPH % 5.5 % (8-40); MCH 30.2 pg (25.7-33.7); MCHC 32.5 g/dl (32.0-35.9); MEAN PLT VOLUME 8.1 fl (7.5-11.1); MONO % 2.4 % (3.8-10.2); NEUT % 90.6 % (42.8-82.8); PLATELET COUNT 227 10^3/uL (134-434); RBC 3.39 M/mm3 (4.00-5.60); RDW 18.2 % (11.9-15.9); WHITE BLOOD COUNT 18.5 K/mm3 (4.0-10.0)
[2022-05-17 16:07] LABS: CHLORIDE 100 mmol/L (98-107); SODIUM 137 mmol/L (136-145)
[2022-05-17 16:10] LABS: CALCIUM 8.6 mg/dL (8.5-10.1); GLUCOSE,RANDOM 96 mg/dL (74-106)
[2022-05-17 16:11] LABS: ALBUMIN 1.2 g/dl (3.4-5.0); BLOOD UREA NITROGEN 78.1 mg/dL (7-18); CO2 28 mmol/L (21-32); MAGNESIUM 1.8 mg/dL (1.8-2.4)
[2022-05-17 16:13] LABS: SGPT/ALT 401 U/L (13-61)
[2022-05-17 16:14] LABS: CREATININE 2.3 mg/dL (0.55-1.3); PHOSPHOROUS 1.5 mg/dL (2.5-4.9); SGOT/AST 328 U/L (15-37)
[2022-05-17 16:15] LABS: BILIRUBIN,TOTAL 0.4 mg/dL (0.2-1)
[2022-05-17 16:22] LABS: ALK PHOS 370 U/L (45-117); ANION GAP 9 MMOL/L (8-16)
[2022-05-17] MEDS ORDERED: SODIUM CHLORIDE 250 ML IV PRN (16:29)
[2022-05-17] MEDS ORDERED: EPOETIN ALFA-EPBX 3,000 UNIT/ML VIAL SQ ONE (16:30)
[2022-05-17 19:30] LABS: CHLORIDE 103 mmol/L (98-107); SODIUM 139 mmol/L (136-145)
[2022-05-17 19:31] LABS: CALCIUM 8.1 mg/dL (8.5-10.1)
[2022-05-17 19:32] LABS: CO2 29 mmol/L (21-32); GLUCOSE,RANDOM 117 mg/dL (74-106)
[2022-05-17 19:35] LABS: CREATININE 0.6 mg/dL (0.55-1.3)
[2022-05-17 19:40] LABS: ANION GAP 7 MMOL/L (8-16); BLOOD UREA NITROGEN 16.1 mg/dL (7-18)
[2022-05-17] MEDS ORDERED: POTASSIUM CHLORIDE ORAL LIQUID 20 MEQ/15 ML PO ONE (19:59)
[2022-05-17] MEDS: KCL 10 MEQ IVPB 10 MEQ/100 ML INFUS.BAG IVPB SCH ×3 (21:01→22:41)
[2022-05-17] MEDS: ATORVASTATIN CA 40 MG TABLET (FP) GT SCH (21:01)
[2022-05-18] MEDS: AMINO ACIDS/PROTEIN HYDROLYS 30 ML LIQUID.PKT GT SCH ×2 (08:04→18:02)
[2022-05-18] MEDS: PANTOPRAZOLE SODIUM 40 MG VIAL IVPUSH SCH (10:36)
[2022-05-18] MEDS: COLLAGENASE CLOSTRIDIUM HIST. 30 GRAMS TUBE TP SCH (10:36)
[2022-05-18] MEDS: METOPROLOL TARTRATE 50 MG TABLET (FP) GT SCH ×2 (10:36→21:02)
[2022-05-18] MEDS: VITAMIN B COMP W-C 1 EA TABLET (NEPHRO-VITE) GT SCH (10:36)
[2022-05-18 16:09] LABS: BASO % 0.1 % (0-2.0); EOS % 0.5 % (0-4.5); HEMATOCRIT 30.8 % (35.4-49); HEMOGLOBIN 9.8 GM/dL (11.7-16.9); LYMPH % 7.6 % (8-40); MCH 29.5 pg (25.7-33.7); MCHC 31.8 g/dl (32.0-35.9); MEAN CELL VOLUME 92.9 fl (80-96); MEAN PLT VOLUME 8.1 fl (7.5-11.1); MONO % 2.7 % (3.8-10.2); NEUT % 89.1 % (42.8-82.8); PLATELET COUNT 171 10^3/uL (134-434); RBC 3.32 M/mm3 (4.00-5.60); RDW 18.8 % (11.9-15.9); WHITE BLOOD COUNT 14.8 K/mm3 (4.0-10.0)
[2022-05-18 16:19] LABS: CALCIUM 8.5 mg/dL (8.5-10.1)
[2022-05-18 16:20] LABS: ALBUMIN 1.2 g/dl (3.4-5.0)
[2022-05-18 16:22] LABS: CREATININE 1.5 mg/dL (0.55-1.3)
[2022-05-18 16:24] LABS: BILIRUBIN,TOTAL 0.3 mg/dL (0.2-1)
[2022-05-18 16:45] LABS: BLOOD UREA NITROGEN 49.2 mg/dL (7-18)
[2022-05-18] MEDS: ATORVASTATIN CA 40 MG TABLET (FP) GT SCH (21:02)
[2022-05-19 02:25] VITALS: TEMP 97.2
[2022-05-19] MEDS ORDERED: SODIUM CHLORIDE 250 ML IV PRN (07:43)
[2022-05-19] MEDS ORDERED: EPOETIN ALFA-EPBX 4,000 UNIT/ML VIAL SQ ONE (08:30)
[2022-05-19 09:21] LABS: BASO % 0.2 % (0-2.0); EOS % 1.9 % (0-4.5); HEMATOCRIT 27.1 % (35.4-49); HEMOGLOBIN 8.6 GM/dL (11.7-16.9); LYMPH % 6.7 % (8-40); MCH 29.5 pg (25.7-33.7); MCHC 31.9 g/dl (32.0-35.9); MEAN CELL VOLUME 92.4 fl (80-96); MEAN PLT VOLUME 8.1 fl (7.5-11.1); MONO % 2.8 % (3.8-10.2); NEUT % 88.4 % (42.8-82.8); PLATELET COUNT 144 10^3/uL (134-434); RBC 2.93 M/mm3 (4.00-5.60); RDW 19.1 % (11.9-15.9); WHITE BLOOD COUNT 13.8 K/mm3 (4.0-10.0)
[2022-05-19 09:37] LABS: CALCIUM 8.3 mg/dL (8.5-10.1)
[2022-05-19 09:38] LABS: ALBUMIN 1.1 g/dl (3.4-5.0)
[2022-05-19 09:41] LABS: CREATININE 1.8 mg/dL (0.55-1.3)
[2022-05-19 09:43] LABS: BILIRUBIN,TOTAL 0.3 mg/dL (0.2-1); TOT PROT 5.1 g/dl (6.4-8.2)
[2022-05-19 09:47] LABS: BLOOD UREA NITROGEN 57.6 mg/dL (7-18)
[2022-05-19] MEDS: ALBUMIN HUMAN 25% 100 ML VIAL IV SCH ×4 (10:00→13:48)
[2022-05-19] MEDS: METOPROLOL TARTRATE 50 MG TABLET (FP) GT SCH (12:45)
[2022-05-19] MEDS: COLLAGENASE CLOSTRIDIUM HIST. 30 GRAMS TUBE TP SCH (12:45)
[2022-05-19] MEDS: PANTOPRAZOLE SODIUM 40 MG VIAL IVPUSH SCH (12:45)
[2022-05-19] MEDS: VITAMIN B COMP W-C 1 EA TABLET (NEPHRO-VITE) GT SCH (12:45)
[2022-05-19] MEDS: AMINO ACIDS/PROTEIN HYDROLYS 30 ML LIQUID.PKT GT SCH ×2 (12:45→17:22)
[2022-05-19 14:25] VITALS: BP 140/66; PULSE 78; RESP 18
== END 2022-05-19 17:29 | DRG 870 ==
LOC: JER 11:56 → JERBED 15:20 → J2W 23:50
PROVIDERS: ADMIT Internal Medicine
PROC: 5A1955Z Respiratory Ventilation, Greater than 96 Consecutive Hours (ICD-10-PCS; principal; 2022-05-11)
DX: A41.89 Other specified sepsis (principal); E43 Unspecified severe protein-calorie malnutrition; J18.9 Pneumonia, unspecified organism; J96.21 Acute and chronic respiratory failure with hypoxia; N18.6 End stage renal disease; U07.1 COVID-19; R65.21 Severe sepsis with septic shock; J96.22 Acute and chronic respiratory failure with hypercapnia; E87.0 Hyperosmolality and hypernatremia; E87.1 Hypo-osmolality and hyponatremia; K92.2 Gastrointestinal hemorrhage, unspecified; R64 Cachexia; N39.0 Urinary tract infection, site not specified; J98.11 Atelectasis; I12.0 Hypertensive chronic kidney disease with stage 5 chronic kidney disease or end stage renal disease; Z68.1 Body mass index [BMI] 19.9 or less, adult; J90 Pleural effusion, not elsewhere classified; E78.5 Hyperlipidemia, unspecified; D64.9 Anemia, unspecified; R19.7 Diarrhea, unspecified; B37.9 Candidiasis, unspecified; I10 Essential (primary) hypertension; D63.1 Anemia in chronic kidney disease; F01.50 Vascular dementia, unspecified severity, without behavioral disturbance, psychotic disturbance, mood disturbance, and anxiety; L89.150 Pressure ulcer of sacral region, unstageable; E87.6 Hypokalemia; B96.20 Unspecified Escherichia coli [E. coli] as the cause of diseases classified elsewhere; Z86.73 Personal history of transient ischemic attack (TIA), and cerebral infarction without residual deficits; Z99.2 Dependence on renal dialysis; Z93.0 Tracheostomy status
CPT/HCPCS: 0241U-QW; 36415; 36430; 71045-TC-FY; 71260-TC; 74177-TC; 80048; 80053; 81003; 82272; 82550; 82553; 82803; 83036; 83605; 83735; 84100; 84484; 85025; 85027; 85610; 85730; 86803; 86850; 86900; 86901; 86922; 87040; 87045; 87046; 87070; 87086; 87186; 87205; 87209; 87324; 87340; 87449; 93005; 93010; 94002; 99285-25; C9803-CS; G0480; P9038; P9058; Q5106; Q9967; U0003; U0005

== ENCOUNTER 2022-05-25 05:03 | Inpatient (IN) | payer OTHER ==
[2022-05-25] MEDS ORDERED: VANCOMYCIN 1 GM in D5W (PRE-DOCKED) 1,000 MG/250 ML (RESTRICTED TO ID ONLY IVPB ONE (05:27)
[2022-05-25] MEDS ORDERED: PIPERACILLIN/TAZOB 4.5 GM 4.5 GM in DEXTROSE 5%-WATER 100 ML IVPB ONE (05:28)
[2022-05-25] MEDS ORDERED: ACETAMINOPHEN 1000 MG/100 ML BAG IVPB ONE (05:33)
[2022-05-25] MEDS ORDERED: SODIUM CHLORIDE 0.9% 500 ML INFUS.BAG IV ONE (06:04)
[2022-05-25] MEDS ORDERED: VANCOMYCIN/WATER FOR INJ (PEG) 1,000 MG/200 ML BAG IVPB ONE (06:12)
[2022-05-25] MEDS ORDERED: ACETAMINOPHEN INJECTION 100 ML IVPB ONE (06:13)
[2022-05-25] MEDS ORDERED: PIPERACILLIN/TAZOB 4.5 GM 4.5 GM/100 ML BAG IVPB ONE (06:13)
[2022-05-25 06:36] LABS: HEMATOCRIT 27.8 % (35.4-49); MCH 30.2 pg (25.7-33.7); MCHC 32.3 g/dl (32.0-35.9); MEAN CELL VOLUME 93.7 fl (80-96); MEAN PLT VOLUME 8.4 fl (7.5-11.1); PLATELET COUNT 180 10^3/uL (134-434); RBC 2.97 M/mm3 (4.00-5.60); RDW 19.5 % (11.9-15.9); WHITE BLOOD COUNT 27.7 K/mm3 (4.0-10.0)
[2022-05-25 06:44] LABS: INR 1.24 (0.83-1.09); PROTHROMBIN TIME (PATIENT) 14.3 SEC (9.7-13.0)
[2022-05-25 06:47] LABS: ACTIVATED PTT 33.3 SECONDS (25.2-36.5)
[2022-05-25 06:56] LABS: VENOUS BASE EXCESS -4.9 mmol/L (-2-2); VENOUS O2 SATURATION 48.3 % (70-80); VENOUS PCO2 53.4 mmHg (38-52); VENOUS PH 7.246 (7.310-7.410)
[2022-05-25 06:59] LABS: CHLORIDE 98 mmol/L (98-107); SODIUM 131 mmol/L (136-145)
[2022-05-25 07:01] LABS: ANION GAP 10 MMOL/L (8-16); CALCIUM 8.4 mg/dL (8.5-10.1); CO2 22 mmol/L (21-32); GLUCOSE,RANDOM 189 mg/dL (74-106)
[2022-05-25 07:04] LABS: CREATININE 2.2 mg/dL (0.55-1.3); SGOT/AST 138 U/L (15-37); SGPT/ALT 256 U/L (13-61)
[2022-05-25 07:06] LABS: BILIRUBIN,TOTAL 0.3 mg/dL (0.2-1); TOT PROT 6.3 g/dl (6.4-8.2)
[2022-05-25 07:07] LABS: ALK PHOS 303 U/L (45-117)
[2022-05-25 07:18] LABS: ALBUMIN 1.4 g/dl (3.4-5.0); BLOOD UREA NITROGEN 120.4 mg/dL (7-18)
[2022-05-25] MEDS ORDERED: SODIUM CHLORIDE 500 ML IV STA (07:40)
[2022-05-25 08:32] LABS: EPI CELLS 17 /uL (0-25.1); HYALINE CASTS 0 /uL (0-3.1); PH,URINE 6.5 (5.0-8.0); URINE APPEARANCE CLEAR; URINE BACTERIA 64 /uL (0-1359); URINE BILIRUBIN NEGATIVE (NEGATIVE); URINE COLOR YELLOW; URINE GLUCOSE (UA) NEGATIVE (NEGATIVE); URINE KETONE NEGATIVE (NEGATIVE); URINE LEUK ESTERASE 2+ (NEGATIVE); URINE NITRITE NEGATIVE (NEGATIVE); URINE PROTEIN 2+ (NEGATIVE); URINE RBC 103 /uL (0-23.9); URINE UROBILINOGEN 0.2 mg/dL (0.2-1.0); URINE WBC 93 /uL (0-25.8)
[2022-05-25 10:42] LABS: ANISOCYTOSIS 1+; MACROCYTOSIS 0
[2022-05-25] MEDS ORDERED: HEPARIN NA (PORCINE) 5,000 UNITS/ML 1ML VIAL ONE (14:36)
[2022-05-25] MEDS: HEPARIN NA (PORCINE) 5,000 UNITS/ML 1ML VIAL SQ SCH (14:44)
[2022-05-25] MEDS ORDERED: PIPERACILLIN/TAZOB 2.25 GM 2.25 GM/50 ML BAG IVPB ONE (18:49)
[2022-05-25] MEDS: PIPERACILLIN/TAZOB 2.25 GM 2.25 GM in DEXTROSE 5%-WATER - 50 ML IVPB SCH (18:54)
[2022-05-26] MEDS: HEPARIN NA (PORCINE) 5,000 UNITS/ML 1ML VIAL SQ SCH ×4 (04:37→22:23)
[2022-05-26] MEDS: METOPROLOL TARTRATE 50 MG TABLET (FP) PEG SCH ×4 (04:37→22:24)
[2022-05-26] MEDS: ATORVASTATIN CA 40 MG TABLET (FP) GT SCH ×2 (04:37→22:24)
[2022-05-26] MEDS ORDERED: PIPERACILLIN/TAZOB 2.25 GM 2.25 GM/50 ML BAG IVPB ONE ×2 (05:15→10:31)
[2022-05-26 08:07] LABS: CHLORIDE 99 mmol/L (98-107); SODIUM 133 mmol/L (136-145)
[2022-05-26 08:10] LABS: ALBUMIN 1.2 g/dl (3.4-5.0); CALCIUM 8.6 mg/dL (8.5-10.1)
[2022-05-26 08:11] LABS: ANION GAP 13 MMOL/L (8-16); CO2 21 mmol/L (21-32); GLUCOSE,RANDOM 61 mg/dL (74-106); MAGNESIUM 2.1 mg/dL (1.8-2.4)
[2022-05-26 08:13] LABS: CREATININE 2.4 mg/dL (0.55-1.3)
[2022-05-26 08:14] LABS: PHOSPHOROUS 3.2 mg/dL (2.5-4.9); SGOT/AST 55 U/L (15-37); SGPT/ALT 155 U/L (13-61)
[2022-05-26 08:15] LABS: BILIRUBIN,TOTAL 0.6 mg/dL (0.2-1); TOT PROT 5.6 g/dl (6.4-8.2)
[2022-05-26 08:17] LABS: ALK PHOS 190 U/L (45-117); BLOOD UREA NITROGEN 125.8 mg/dL (7-18)
[2022-05-26 08:57] LABS: HEMATOCRIT 24.8 % (35.4-49); HEMOGLOBIN 7.9 GM/dL (11.7-16.9); MCH 30.4 pg (25.7-33.7); MCHC 31.9 g/dl (32.0-35.9); MEAN CELL VOLUME 95.3 fl (80-96); MEAN PLT VOLUME 8.3 fl (7.5-11.1); PLATELET COUNT 117 10^3/uL (134-434); RDW 19.7 % (11.9-15.9); WHITE BLOOD COUNT 18.3 K/mm3 (4.0-10.0)
[2022-05-26 10:10] LABS: ANISOCYTOSIS 1+; MACROCYTOSIS 1+
[2022-05-26] MEDS ORDERED: METOPROLOL TARTRATE 50 MG TABLET (FP) ONE (10:31)
[2022-05-26] MEDS ORDERED: HEPARIN NA (PORCINE) 5,000 UNITS/ML 1ML VIAL ONE (10:31)
[2022-05-26] MEDS: PIPERACILLIN/TAZOB 2.25 GM 2.25 GM in DEXTROSE 5%-WATER - 50 ML IVPB SCH ×3 (10:53→18:47)
[2022-05-26] MEDS: VITAMIN B COMP W-C 1 EA TABLET (NEPHRO-VITE) GT SCH (10:54)
[2022-05-26] MEDS: amLODIPine BESYLATE 5 MG TABLET (FP) GT SCH ×2 (10:54→10:55)
[2022-05-26] MEDS ORDERED: SODIUM CHLORIDE 250 ML IV PRN (17:31)
[2022-05-26] MEDS ORDERED: EPOETIN ALFA-EPBX 10,000 UNIT/ML VIAL SQ ONE (17:45)
[2022-05-27] MEDS: PIPERACILLIN/TAZOB 2.25 GM 2.25 GM in DEXTROSE 5%-WATER - 50 ML IVPB SCH ×3 (02:23→18:47)
[2022-05-27] MEDS: HEPARIN NA (PORCINE) 5,000 UNITS/ML 1ML VIAL SQ SCH ×3 (06:09→21:47)
[2022-05-27] MEDS ORDERED: EPOETIN ALFA-EPBX 10,000 UNIT/ML VIAL SQ ONE (07:30)
[2022-05-27 07:58] LABS: HEMOGLOBIN 7.7 GM/dL (11.7-16.9); MCH 29.5 pg (25.7-33.7); MCHC 32.1 g/dl (32.0-35.9); MEAN CELL VOLUME 91.8 fl (80-96); MEAN PLT VOLUME 7.8 fl (7.5-11.1); PLATELET COUNT 134 10^3/uL (134-434); RBC 2.61 M/mm3 (4.00-5.60); RDW 19.5 % (11.9-15.9); WHITE BLOOD COUNT 16.1 K/mm3 (4.0-10.0)
[2022-05-27 08:28] LABS: CHLORIDE 107 mmol/L (98-107); SODIUM 143 mmol/L (136-145)
[2022-05-27 08:30] LABS: ALBUMIN 1.2 g/dl (3.4-5.0); CALCIUM 8.4 mg/dL (8.5-10.1); CO2 26 mmol/L (21-32); GLUCOSE,RANDOM 94 mg/dL (74-106)
[2022-05-27 08:33] LABS: SGPT/ALT 111 U/L (13-61)
[2022-05-27 08:34] LABS: CREATININE 1.6 mg/dL (0.55-1.3); SGOT/AST 28 U/L (15-37)
[2022-05-27 08:35] LABS: BILIRUBIN,TOTAL 0.5 mg/dL (0.2-1); TOT PROT 5.2 g/dl (6.4-8.2)
[2022-05-27 08:36] LABS: ALK PHOS 165 U/L (45-117)
[2022-05-27 08:37] LABS: ANION GAP 10 MMOL/L (8-16)
[2022-05-27 09:21] LABS: ANISOCYTOSIS 2+; MACROCYTOSIS 1+
[2022-05-27] MEDS: amLODIPine BESYLATE 5 MG TABLET (FP) GT SCH (10:44)
[2022-05-27] MEDS: METOPROLOL TARTRATE 50 MG TABLET (FP) PEG SCH ×2 (10:44→21:47)
[2022-05-27] MEDS: VITAMIN B COMP W-C 1 EA TABLET (NEPHRO-VITE) GT SCH (10:44)
[2022-05-27] MEDS: KCL 10 MEQ IVPB 10 MEQ/100 ML INFUS.BAG IVPB SCH ×3 (10:44→14:24)
[2022-05-27 16:04] VITALS: BMI 14.8
[2022-05-27] MEDS: AMINO ACIDS/PROTEIN HYDROLYS 30 ML LIQUID.PKT PO SCH (17:19)
[2022-05-27] MEDS: ATORVASTATIN CA 40 MG TABLET (FP) GT SCH (21:47)
[2022-05-28] MEDS: HEPARIN NA (PORCINE) 5,000 UNITS/ML 1ML VIAL SQ SCH ×3 (06:13→21:56)
[2022-05-28] MEDS: ACETAMINOPHEN 650 MG/20.3 ML ORAL SOLUTION (CUPS) GT PRN (06:13)
[2022-05-28] MEDS: PIPERACILLIN/TAZOB 2.25 GM 2.25 GM in DEXTROSE 5%-WATER - 50 ML IVPB SCH ×3 (06:14→13:32)
[2022-05-28] MEDS ORDERED: SODIUM CHLORIDE 250 ML IV PRN (07:10)
[2022-05-28 09:36] LABS: HEMATOCRIT 23.3 % (35.4-49); HEMOGLOBIN 7.7 GM/dL (11.7-16.9); MCHC 32.8 g/dl (32.0-35.9); MEAN CELL VOLUME 94.4 fl (80-96); MEAN PLT VOLUME 8.4 fl (7.5-11.1); PLATELET COUNT 130 10^3/uL (134-434); RBC 2.47 M/mm3 (4.00-5.60); RDW 19.5 % (11.9-15.9); WHITE BLOOD COUNT 9.3 K/mm3 (4.0-10.0)
[2022-05-28] MEDS ORDERED: EPOETIN ALFA-EPBX 10,000 UNIT/ML VIAL IVPUSH ONE (10:00)
[2022-05-28] MEDS ORDERED: EPOETIN ALFA-EPBX 10,000 UNIT/ML VIAL SQ ONE (10:00)
[2022-05-28 10:01] LABS: BLOOD UREA NITROGEN 66.1 mg/dL (7-18); CALCIUM 9.1 mg/dL (8.5-10.1); MAGNESIUM 1.9 mg/dL (1.8-2.4)
[2022-05-28 10:02] LABS: ALBUMIN 1.4 g/dl (3.4-5.0)
[2022-05-28 10:05] LABS: CREATININE 1.7 mg/dL (0.55-1.3)
[2022-05-28 10:06] LABS: ANISOCYTOSIS 1+; MACROCYTOSIS 1+; TOT PROT 5.4 g/dl (6.4-8.2)
[2022-05-28 10:10] LABS: BILIRUBIN,TOTAL 0.4 mg/dL (0.2-1)
[2022-05-28] MEDS: VITAMIN B COMP W-C 1 EA TABLET (NEPHRO-VITE) GT SCH (11:15)
[2022-05-28] MEDS: amLODIPine BESYLATE 5 MG TABLET (FP) GT SCH (11:15)
[2022-05-28] MEDS: AMINO ACIDS/PROTEIN HYDROLYS 30 ML LIQUID.PKT PO SCH ×2 (11:15→17:06)
[2022-05-28] MEDS: METOPROLOL TARTRATE 50 MG TABLET (FP) PEG SCH ×2 (11:15→21:57)
[2022-05-28] MEDS: AMOX TR/POTASSIUM CLAVULANATE 250 MG/5 ML BOTTLE PO SCH (17:05)
[2022-05-28] MEDS: ATORVASTATIN CA 40 MG TABLET (FP) GT SCH (21:57)
[2022-05-29] MEDS: ACETAMINOPHEN 650 MG/20.3 ML ORAL SOLUTION (CUPS) GT PRN (05:41)
[2022-05-29] MEDS: HEPARIN NA (PORCINE) 5,000 UNITS/ML 1ML VIAL SQ SCH ×3 (05:42→21:14)
[2022-05-29] MEDS: AMOX TR/POTASSIUM CLAVULANATE 250 MG/5 ML BOTTLE PO SCH ×2 (10:35→17:09)
[2022-05-29] MEDS: AMINO ACIDS/PROTEIN HYDROLYS 30 ML LIQUID.PKT PO SCH ×2 (10:35→17:08)
[2022-05-29] MEDS: amLODIPine BESYLATE 5 MG TABLET (FP) GT SCH (10:35)
[2022-05-29] MEDS: VITAMIN B COMP W-C 1 EA TABLET (NEPHRO-VITE) GT SCH (10:35)
[2022-05-29] MEDS: METOPROLOL TARTRATE 50 MG TABLET (FP) PEG SCH ×2 (10:35→21:14)
[2022-05-29 14:27] LABS: BASO % 0.4 % (0-2.0); EOS % 3.2 % (0-4.5); HEMATOCRIT 24.6 % (35.4-49); LYMPH % 6.8 % (8-40); MCH 30.6 pg (25.7-33.7); MCHC 32.5 g/dl (32.0-35.9); MEAN CELL VOLUME 94.1 fl (80-96); MEAN PLT VOLUME 8.1 fl (7.5-11.1); NEUT % 87.6 % (42.8-82.8); PLATELET COUNT 132 10^3/uL (134-434); RBC 2.62 M/mm3 (4.00-5.60); RDW 19.3 % (11.9-15.9); WHITE BLOOD COUNT 11.3 K/mm3 (4.0-10.0)
[2022-05-29 14:41] LABS: CHLORIDE 106 mmol/L (98-107); SODIUM 142 mmol/L (136-145)
[2022-05-29 14:47] LABS: ALBUMIN 1.6 g/dl (3.4-5.0); CO2 31 mmol/L (21-32); GLUCOSE,RANDOM 147 mg/dL (74-106); MAGNESIUM 1.8 mg/dL (1.8-2.4)
[2022-05-29 14:50] LABS: CREATININE 1.5 mg/dL (0.55-1.3); SGOT/AST 16 U/L (15-37); SGPT/ALT 60 U/L (13-61)
[2022-05-29 14:52] LABS: BILIRUBIN,TOTAL 0.4 mg/dL (0.2-1); TOT PROT 5.6 g/dl (6.4-8.2)
[2022-05-29 14:53] LABS: ALK PHOS 237 U/L (45-117)
[2022-05-29 14:55] LABS: ANION GAP 5 MMOL/L (8-16)
[2022-05-29] MEDS ORDERED: POTASSIUM CHLORIDE ORAL LIQUID 20 MEQ/15 ML PO ONE (16:06)
[2022-05-29] MEDS ORDERED: POTASSIUM CHLORIDE ORAL LIQUID 20 MEQ/15 ML GT ONE (16:06)
[2022-05-29] MEDS: ATORVASTATIN CA 40 MG TABLET (FP) GT SCH (21:14)
[2022-05-30] MEDS: ACETAMINOPHEN 650 MG/20.3 ML ORAL SOLUTION (CUPS) GT PRN ×2 (03:14→09:35)
[2022-05-30] MEDS: HEPARIN NA (PORCINE) 5,000 UNITS/ML 1ML VIAL SQ SCH ×2 (05:01→13:18)
[2022-05-30] MEDS: AMOX TR/POTASSIUM CLAVULANATE 250 MG/5 ML BOTTLE PO SCH ×2 (09:35→16:38)
[2022-05-30] MEDS: VITAMIN B COMP W-C 1 EA TABLET (NEPHRO-VITE) GT SCH (09:35)
[2022-05-30] MEDS: AMINO ACIDS/PROTEIN HYDROLYS 30 ML LIQUID.PKT PO SCH ×2 (09:35→16:36)
[2022-05-30] MEDS: amLODIPine BESYLATE 5 MG TABLET (FP) GT SCH (09:36)
[2022-05-30] MEDS: METOPROLOL TARTRATE 50 MG TABLET (FP) PEG SCH ×2 (09:36→21:46)
[2022-05-30 13:06] LABS: BASO % 0.1 % (0-2.0); EOS % 1.9 % (0-4.5); HEMATOCRIT 23.6 % (35.4-49); HEMOGLOBIN 7.4 GM/dL (11.7-16.9); LYMPH % 5.3 % (8-40); MCH 29.2 pg (25.7-33.7); MCHC 31.3 g/dl (32.0-35.9); MEAN CELL VOLUME 93.1 fl (80-96); MONO % 2.2 % (3.8-10.2); NEUT % 90.5 % (42.8-82.8); PLATELET COUNT 119 10^3/uL (134-434); RBC 2.53 M/mm3 (4.00-5.60); RDW 18.9 % (11.9-15.9); WHITE BLOOD COUNT 11.9 K/mm3 (4.0-10.0)
[2022-05-30 13:36] LABS: TOT PROT 5.4 g/dl (6.4-8.2)
[2022-05-30 13:37] LABS: ALBUMIN 1.4 g/dl (3.4-5.0); BILIRUBIN,TOTAL 0.3 mg/dL (0.2-1); CALCIUM 10.7 mg/dL (8.5-10.1)
[2022-05-30 13:57] LABS: BLOOD UREA NITROGEN 89.4 mg/dL (7-18)
[2022-05-30] MEDS ORDERED: POTASSIUM CHLORIDE ORAL LIQUID 20 MEQ/15 ML PEG ONE (15:00)
[2022-05-30] MEDS: ATORVASTATIN CA 40 MG TABLET (FP) GT SCH (21:46)
[2022-05-31] MEDS: VITAMIN B COMP W-C 1 EA TABLET (NEPHRO-VITE) GT SCH (09:58)
[2022-05-31] MEDS: METOPROLOL TARTRATE 50 MG TABLET (FP) PEG SCH ×2 (09:58→21:53)
[2022-05-31] MEDS: amLODIPine BESYLATE 5 MG TABLET (FP) GT SCH (09:59)
[2022-05-31] MEDS: AMOX TR/POTASSIUM CLAVULANATE 250 MG/5 ML BOTTLE PO SCH ×2 (09:59→16:54)
[2022-05-31] MEDS: AMINO ACIDS/PROTEIN HYDROLYS 30 ML LIQUID.PKT PO SCH ×2 (09:59→16:55)
[2022-05-31] MEDS ORDERED: EPOETIN ALFA-EPBX 10,000 UNIT/ML VIAL SQ ONE (15:15)
[2022-05-31] MEDS: ATORVASTATIN CA 40 MG TABLET (FP) GT SCH (21:54)
[2022-05-31] MEDS: POTASSIUM CHLORIDE ORAL LIQUID 20 MEQ/15 ML PO SCH (21:54)
[2022-06-01] MEDS: VITAMIN B COMP W-C 1 EA TABLET (NEPHRO-VITE) GT SCH (09:50)
[2022-06-01] MEDS: AMOX TR/POTASSIUM CLAVULANATE 250 MG/5 ML BOTTLE PO SCH ×2 (09:50→18:26)
[2022-06-01] MEDS: amLODIPine BESYLATE 5 MG TABLET (FP) GT SCH (09:50)
[2022-06-01] MEDS: AMINO ACIDS/PROTEIN HYDROLYS 30 ML LIQUID.PKT PO SCH ×2 (09:50→18:26)
[2022-06-01] MEDS: POTASSIUM CHLORIDE ORAL LIQUID 20 MEQ/15 ML PO SCH ×3 (09:50→22:38)
[2022-06-01] MEDS: METOPROLOL TARTRATE 50 MG TABLET (FP) PEG SCH ×2 (09:50→22:38)
[2022-06-01] MEDS ORDERED: ERTAPENEM SODIUM 1 GM in SODIUM CHLORIDE 50 ML IVPB SCH (14:00)
[2022-06-01] MEDS ORDERED: SODIUM CHLORIDE 250 ML IV PRN (14:21)
[2022-06-01] MEDS: ATORVASTATIN CA 40 MG TABLET (FP) GT SCH (22:38)
[2022-06-02] MEDS: ACETAMINOPHEN 650 MG/20.3 ML ORAL SOLUTION (CUPS) GT PRN (05:22)
[2022-06-02] MEDS ORDERED: EPOETIN ALFA-EPBX 10,000 UNIT/ML VIAL IVPUSH ONE (07:30)
[2022-06-02 08:35] LABS: HEMATOCRIT 24.4 % (35.4-49); HEMOGLOBIN 7.6 GM/dL (11.7-16.9); MCH 29.1 pg (25.7-33.7); MCHC 31.1 g/dl (32.0-35.9); MEAN CELL VOLUME 93.5 fl (80-96); MEAN PLT VOLUME 8.7 fl (7.5-11.1); PLATELET COUNT 126 10^3/uL (134-434); RBC 2.61 M/mm3 (4.00-5.60); RDW 19.1 % (11.9-15.9); WHITE BLOOD COUNT 14.5 K/mm3 (4.0-10.0)
[2022-06-02 08:56] LABS: CHLORIDE 107 mmol/L (98-107); SODIUM 139 mmol/L (136-145)
[2022-06-02 09:01] LABS: BLOOD UREA NITROGEN 85.8 mg/dL (7-18); CALCIUM 10.8 mg/dL (8.5-10.1); CO2 30 mmol/L (21-32); GLUCOSE,RANDOM 149 mg/dL (74-106)
[2022-06-02 09:04] LABS: ANION GAP 2 MMOL/L (8-16)
[2022-06-02 09:50] LABS: ANISOCYTOSIS 1+; MACROCYTOSIS 0; PLATELET ESTIMATE DECREASED
[2022-06-02] MEDS: AMINO ACIDS/PROTEIN HYDROLYS 30 ML LIQUID.PKT PO SCH ×2 (11:45→18:50)
[2022-06-02] MEDS: amLODIPine BESYLATE 5 MG TABLET (FP) GT SCH (11:45)
[2022-06-02] MEDS: VITAMIN B COMP W-C 1 EA TABLET (NEPHRO-VITE) GT SCH (11:45)
[2022-06-02] MEDS: METOPROLOL TARTRATE 50 MG TABLET (FP) PEG SCH ×2 (11:45→21:59)
[2022-06-02] MEDS: AMOX TR/POTASSIUM CLAVULANATE 250 MG/5 ML BOTTLE PO SCH ×2 (11:45→18:50)
[2022-06-02 12:56] LABS: CREATININE 0.6 mg/dL (0.55-1.3)
[2022-06-02 12:57] LABS: BLOOD UREA NITROGEN 19.7 mg/dL (7-18); CALCIUM 8.4 mg/dL (8.5-10.1)
[2022-06-02] MEDS: ATORVASTATIN CA 40 MG TABLET (FP) GT SCH (21:59)
[2022-06-03] MEDS: AMOX TR/POTASSIUM CLAVULANATE 250 MG/5 ML BOTTLE PO SCH ×2 (12:45→17:35)
[2022-06-03] MEDS: VITAMIN B COMP W-C 1 EA TABLET (NEPHRO-VITE) GT SCH (12:48)
[2022-06-03] MEDS: METOPROLOL TARTRATE 50 MG TABLET (FP) PEG SCH ×2 (12:48→21:43)
[2022-06-03] MEDS: amLODIPine BESYLATE 5 MG TABLET (FP) GT SCH (12:49)
[2022-06-03] MEDS: AMINO ACIDS/PROTEIN HYDROLYS 30 ML LIQUID.PKT PO SCH ×2 (12:51→17:35)
[2022-06-03] MEDS: ACETAMINOPHEN 650 MG/20.3 ML ORAL SOLUTION (CUPS) GT PRN ×2 (13:00→17:36)
[2022-06-03] MEDS: SCOPOLAMINE HYDROBROMIDE 1 PATCH PATCH.TD72 TD SCH (17:35)
[2022-06-03] MEDS: ATORVASTATIN CA 40 MG TABLET (FP) GT SCH (21:43)
[2022-06-04] MEDS: ACETAMINOPHEN 650 MG/20.3 ML ORAL SOLUTION (CUPS) GT PRN ×2 (01:20→17:35)
[2022-06-04] MEDS ORDERED: SODIUM CHLORIDE 250 ML IV PRN (07:29)
[2022-06-04] MEDS ORDERED: EPOETIN ALFA-EPBX 10,000 UNIT/ML VIAL SQ ONE (08:00)
[2022-06-04] MEDS: METOPROLOL TARTRATE 50 MG TABLET (FP) PEG SCH ×2 (11:06→21:32)
[2022-06-04] MEDS: VITAMIN B COMP W-C 1 EA TABLET (NEPHRO-VITE) GT SCH (11:06)
[2022-06-04] MEDS: AMOX TR/POTASSIUM CLAVULANATE 250 MG/5 ML BOTTLE PO SCH (11:07)
[2022-06-04] MEDS: AMINO ACIDS/PROTEIN HYDROLYS 30 ML LIQUID.PKT PO SCH ×2 (11:07→17:26)
[2022-06-04] MEDS: amLODIPine BESYLATE 5 MG TABLET (FP) GT SCH (11:07)
[2022-06-04] MEDS ORDERED: VANCOMYCIN 1 GM in D5W (PRE-DOCKED) 1,000 MG/250 ML (RESTRICTED TO ID ONLY IVPB ONE (19:30)
[2022-06-04] MEDS ORDERED: VANCOMYCIN/WATER FOR INJ (PEG) 1,000 MG/200 ML BAG IVPB ONE (19:45)
[2022-06-04 21:15] LABS: CALCIUM 9.2 mg/dL (8.5-10.1)
[2022-06-04 21:19] LABS: CREATININE 1.1 mg/dL (0.55-1.3)
[2022-06-04] MEDS: ATORVASTATIN CA 40 MG TABLET (FP) GT SCH (21:32)
[2022-06-04 21:38] LABS: BASO % 0.1 % (0-2.0); EOS % 0.3 % (0-4.5); HEMATOCRIT 19.6 % (35.4-49); LYMPH % 4.7 % (8-40); MCH 29.7 pg (25.7-33.7); MCHC 32.1 g/dl (32.0-35.9); MEAN CELL VOLUME 92.8 fl (80-96); MEAN PLT VOLUME 8.7 fl (7.5-11.1); MONO % 2.4 % (3.8-10.2); NEUT % 92.5 % (42.8-82.8); PLATELET COUNT 128 10^3/uL (134-434); RBC 2.11 M/mm3 (4.00-5.60); RDW 18.6 % (11.9-15.9); WHITE BLOOD COUNT 15.9 K/mm3 (4.0-10.0)
[2022-06-04 22:06] LABS: BLOOD UREA NITROGEN 45.9 mg/dL (7-18)
[2022-06-04 22:19] LABS: HEMOGLOBIN 6.3 GM/dL (11.7-16.9)
[2022-06-04 23:53] LABS: ANISOCYTOSIS 1+; MACROCYTOSIS 0; OVALOCYTE 2+; TARGET CELLS 2+; TEAR DROP CELLS 1+
[2022-06-05] MEDS: AMINO ACIDS/PROTEIN HYDROLYS 30 ML LIQUID.PKT PO SCH ×2 (07:58→17:18)
[2022-06-05] MEDS: amLODIPine BESYLATE 5 MG TABLET (FP) GT SCH (09:27)
[2022-06-05] MEDS: VITAMIN B COMP W-C 1 EA TABLET (NEPHRO-VITE) GT SCH (09:27)
[2022-06-05] MEDS: METOPROLOL TARTRATE 50 MG TABLET (FP) PEG SCH ×2 (09:27→21:07)
[2022-06-05] MEDS: ACETAMINOPHEN 650 MG/20.3 ML ORAL SOLUTION (CUPS) GT PRN (10:11)
[2022-06-05 10:23] LABS: BASO % 0.1 % (0-2.0); EOS % 1.4 % (0-4.5); LYMPH % 5.5 % (8-40); MCH 29.4 pg (25.7-33.7); MCHC 31.8 g/dl (32.0-35.9); MEAN CELL VOLUME 92.4 fl (80-96); MEAN PLT VOLUME 8.5 fl (7.5-11.1); PLATELET COUNT 137 10^3/uL (134-434); RBC 2.06 M/mm3 (4.00-5.60); RDW 18.5 % (11.9-15.9); WHITE BLOOD COUNT 15.8 K/mm3 (4.0-10.0)
[2022-06-05 10:26] LABS: HEMOGLOBIN 6.1 GM/dL (11.7-16.9)
[2022-06-05 10:41] LABS: CHLORIDE 102 mmol/L (98-107); SODIUM 137 mmol/L (136-145)
[2022-06-05 10:42] LABS: CALCIUM 9.7 mg/dL (8.5-10.1)
[2022-06-05 10:43] LABS: BLOOD UREA NITROGEN 63.2 mg/dL (7-18); CO2 32 mmol/L (21-32); GLUCOSE,RANDOM 122 mg/dL (74-106)
[2022-06-05 10:46] LABS: CREATININE 1.4 mg/dL (0.55-1.3)
[2022-06-05 10:54] LABS: ANION GAP 3 MMOL/L (8-16)
[2022-06-05] MEDS: MEROPENEM 500 MG in DEXTROSE 5%-WATER 100 ML IVPB SCH (17:18)
[2022-06-05] MEDS: ATORVASTATIN CA 40 MG TABLET (FP) GT SCH (21:07)
[2022-06-06] MEDS: ACETAMINOPHEN 650 MG/20.3 ML ORAL SOLUTION (CUPS) GT PRN ×2 (11:09→22:04)
[2022-06-06] MEDS: AMINO ACIDS/PROTEIN HYDROLYS 30 ML LIQUID.PKT PO SCH ×2 (11:10→18:46)
[2022-06-06] MEDS: METOPROLOL TARTRATE 50 MG TABLET (FP) PEG SCH ×2 (11:10→23:00)
[2022-06-06] MEDS: amLODIPine BESYLATE 5 MG TABLET (FP) GT SCH (11:10)
[2022-06-06] MEDS: VITAMIN B COMP W-C 1 EA TABLET (NEPHRO-VITE) GT SCH (11:10)
[2022-06-06 11:49] LABS: BASO % 0.2 % (0-2.0); EOS % 0.9 % (0-4.5); HEMATOCRIT 28.7 % (35.4-49); HEMOGLOBIN 9.5 GM/dL (11.7-16.9); LYMPH % 6.4 % (8-40); MCH 28.4 pg (25.7-33.7); MCHC 33.1 g/dl (32.0-35.9); MEAN CELL VOLUME 85.9 fl (80-96); MEAN PLT VOLUME 8.6 fl (7.5-11.1); MONO % 2.9 % (3.8-10.2); NEUT % 89.6 % (42.8-82.8); PLATELET COUNT 158 10^3/uL (134-434); RBC 3.35 M/mm3 (4.00-5.60); RDW 19.5 % (11.9-15.9); WHITE BLOOD COUNT 14.3 K/mm3 (4.0-10.0)
[2022-06-06 12:34] LABS: BLOOD UREA NITROGEN 67.6 mg/dL (7-18)
[2022-06-06 12:37] LABS: CALCIUM 9.5 mg/dL (8.5-10.1)
[2022-06-06 12:41] LABS: CREATININE 1.5 mg/dL (0.55-1.3)
[2022-06-06] MEDS: AMPICILLIN NA/SULBACTAM NA 3 GM in SODIUM CHLORIDE 100 ML IVPB SCH (15:02)
[2022-06-06] MEDS: SCOPOLAMINE HYDROBROMIDE 1 PATCH PATCH.TD72 TD SCH (15:02)
[2022-06-06] MEDS ORDERED: CASPOFUNGIN ACETATE 70 MG in SODIUM CHLORIDE 250 ML IVPB ONE (15:22)
[2022-06-06] MEDS: MEROPENEM 500 MG in DEXTROSE 5%-WATER 100 ML IVPB SCH (18:57)
[2022-06-06] MEDS: ATORVASTATIN CA 40 MG TABLET (FP) GT SCH (23:00)
[2022-06-07] MEDS ORDERED: EPOETIN ALFA-EPBX 10,000 UNIT/ML VIAL IVPUSH ONE (08:30)
[2022-06-07 08:54] LABS: BASO % 0.2 % (0-2.0); EOS % 1.2 % (0-4.5); HEMATOCRIT 28.8 % (35.4-49); HEMOGLOBIN 9.4 GM/dL (11.7-16.9); LYMPH % 7.1 % (8-40); MCH 28.4 pg (25.7-33.7); MCHC 32.6 g/dl (32.0-35.9); MEAN PLT VOLUME 8.8 fl (7.5-11.1); MONO % 2.7 % (3.8-10.2); NEUT % 88.8 % (42.8-82.8); PLATELET COUNT 170 10^3/uL (134-434); RBC 3.31 M/mm3 (4.00-5.60); RDW 19.1 % (11.9-15.9); WHITE BLOOD COUNT 13.8 K/mm3 (4.0-10.0)
[2022-06-07 09:16] LABS: BLOOD UREA NITROGEN 91.2 mg/dL (7-18)
[2022-06-07] MEDS ORDERED: SODIUM CHLORIDE 250 ML IV PRN (09:44)
[2022-06-07] MEDS: VITAMIN B COMP W-C 1 EA TABLET (NEPHRO-VITE) GT SCH (11:26)
[2022-06-07] MEDS: METOPROLOL TARTRATE 50 MG TABLET (FP) PEG SCH ×2 (11:26→21:52)
[2022-06-07] MEDS: amLODIPine BESYLATE 5 MG TABLET (FP) GT SCH (11:27)
[2022-06-07] MEDS: AMINO ACIDS/PROTEIN HYDROLYS 30 ML LIQUID.PKT PO SCH ×2 (11:27→16:35)
[2022-06-07] MEDS: AMPICILLIN NA/SULBACTAM NA 3 GM in SODIUM CHLORIDE 100 ML IVPB SCH (15:39)
[2022-06-07] MEDS: CASPOFUNGIN ACETATE 50 MG in SODIUM CHLORIDE 250 ML IVPB SCH (16:35)
[2022-06-07] MEDS ORDERED: cefTAZidime PENTAHYDRATE 1 GM/10 ML SYRINGE (RESTRICTED TO ID) IVPUSH SCH (16:45)
[2022-06-07] MEDS: CEFTAZIDIME PENTAHYDRATE 1 GM in DEXTROSE 5%-WATER - 50 ML IVPB SCH (17:59)
[2022-06-07] MEDS: ATORVASTATIN CA 40 MG TABLET (FP) GT SCH (21:52)
[2022-06-08 08:49] LABS: BASO % 0.4 % (0-2.0); EOS % 1.3 % (0-4.5); HEMATOCRIT 28.4 % (35.4-49); HEMOGLOBIN 9.4 GM/dL (11.7-16.9); LYMPH % 8.4 % (8-40); MCH 28.7 pg (25.7-33.7); MCHC 33.1 g/dl (32.0-35.9); MEAN CELL VOLUME 86.7 fl (80-96); MEAN PLT VOLUME 8.5 fl (7.5-11.1); MONO % 4.1 % (3.8-10.2); NEUT % 85.8 % (42.8-82.8); PLATELET COUNT 153 10^3/uL (134-434); RBC 3.28 M/mm3 (4.00-5.60); RDW 17.8 % (11.9-15.9); WHITE BLOOD COUNT 11.9 K/mm3 (4.0-10.0)
[2022-06-08] MEDS: METOPROLOL TARTRATE 50 MG TABLET (FP) PEG SCH ×2 (10:18→21:58)
[2022-06-08] MEDS: AMINO ACIDS/PROTEIN HYDROLYS 30 ML LIQUID.PKT PO SCH ×2 (10:18→17:10)
[2022-06-08] MEDS: VITAMIN B COMP W-C 1 EA TABLET (NEPHRO-VITE) GT SCH (10:18)
[2022-06-08] MEDS: amLODIPine BESYLATE 5 MG TABLET (FP) GT SCH (10:19)
[2022-06-08 14:38] LABS: CALCIUM 8.9 mg/dL (8.5-10.1)
[2022-06-08 14:42] LABS: CREATININE 1.4 mg/dL (0.55-1.3)
[2022-06-08 14:45] LABS: BLOOD UREA NITROGEN 61.2 mg/dL (7-18)
[2022-06-08] MEDS: CASPOFUNGIN ACETATE 50 MG in SODIUM CHLORIDE 250 ML IVPB SCH (17:08)
[2022-06-08] MEDS: CEFTAZIDIME PENTAHYDRATE 1 GM in DEXTROSE 5%-WATER - 50 ML IVPB SCH (17:09)
[2022-06-08] MEDS ORDERED: SODIUM CHLORIDE 250 ML IV PRN (19:18)
[2022-06-08] MEDS: ACETAMINOPHEN 650 MG/20.3 ML ORAL SOLUTION (CUPS) GT PRN (21:58)
[2022-06-08] MEDS: ATORVASTATIN CA 40 MG TABLET (FP) GT SCH (21:58)
[2022-06-09] MEDS ORDERED: EPOETIN ALFA-EPBX 10,000 UNIT/ML VIAL IVPUSH ONE (09:00)
[2022-06-09] MEDS: AMINO ACIDS/PROTEIN HYDROLYS 30 ML LIQUID.PKT PO SCH ×2 (12:22→16:51)
[2022-06-09] MEDS: METOPROLOL TARTRATE 50 MG TABLET (FP) PEG SCH ×2 (12:23→21:24)
[2022-06-09] MEDS: amLODIPine BESYLATE 5 MG TABLET (FP) GT SCH (12:23)
[2022-06-09] MEDS: VITAMIN B COMP W-C 1 EA TABLET (NEPHRO-VITE) GT SCH (12:23)
[2022-06-09] MEDS: SCOPOLAMINE HYDROBROMIDE 1 PATCH PATCH.TD72 TD SCH (14:19)
[2022-06-09] MEDS: CEFTAZIDIME PENTAHYDRATE 1 GM in DEXTROSE 5%-WATER - 50 ML IVPB SCH (16:01)
[2022-06-09] MEDS: CASPOFUNGIN ACETATE 50 MG in SODIUM CHLORIDE 250 ML IVPB SCH (16:51)
[2022-06-09] MEDS: ATORVASTATIN CA 40 MG TABLET (FP) GT SCH (21:24)
[2022-06-10] MEDS: ACETAMINOPHEN 650 MG/20.3 ML ORAL SOLUTION (CUPS) GT PRN (05:04)
[2022-06-10] MEDS: AMINO ACIDS/PROTEIN HYDROLYS 30 ML LIQUID.PKT PO SCH ×2 (08:52→17:03)
[2022-06-10] MEDS: VITAMIN B COMP W-C 1 EA TABLET (NEPHRO-VITE) GT SCH (10:07)
[2022-06-10] MEDS: amLODIPine BESYLATE 5 MG TABLET (FP) GT SCH (10:07)
[2022-06-10] MEDS: METOPROLOL TARTRATE 50 MG TABLET (FP) PEG SCH ×2 (10:07→23:18)
[2022-06-10] MEDS: CEFTAZIDIME PENTAHYDRATE 1 GM in DEXTROSE 5%-WATER - 50 ML IVPB SCH (16:22)
[2022-06-10] MEDS: CASPOFUNGIN ACETATE 50 MG in SODIUM CHLORIDE 250 ML IVPB SCH (17:03)
[2022-06-10] MEDS: ATORVASTATIN CA 40 MG TABLET (FP) GT SCH (23:18)
[2022-06-11 10:21] LABS: BASO % 0.4 % (0-2.0); EOS % 0.9 % (0-4.5); HEMATOCRIT 29.3 % (35.4-49); HEMOGLOBIN 9.7 GM/dL (11.7-16.9); LYMPH % 9.5 % (8-40); MCH 28.7 pg (25.7-33.7); MCHC 33.1 g/dl (32.0-35.9); MEAN CELL VOLUME 86.7 fl (80-96); MEAN PLT VOLUME 9.6 fl (7.5-11.1); MONO % 4.6 % (3.8-10.2); NEUT % 84.6 % (42.8-82.8); PLATELET COUNT 227 10^3/uL (134-434); RBC 3.38 M/mm3 (4.00-5.60); RDW 17.4 % (11.9-15.9); WHITE BLOOD COUNT 12.1 K/mm3 (4.0-10.0)
[2022-06-11 10:47] LABS: CALCIUM 8.7 mg/dL (8.5-10.1)
[2022-06-11 10:52] LABS: CREATININE 2.2 mg/dL (0.55-1.3)
[2022-06-11] MEDS: METOPROLOL TARTRATE 50 MG TABLET (FP) PEG SCH ×2 (11:19→21:33)
[2022-06-11] MEDS: amLODIPine BESYLATE 5 MG TABLET (FP) GT SCH (11:19)
[2022-06-11] MEDS: AMINO ACIDS/PROTEIN HYDROLYS 30 ML LIQUID.PKT PO SCH ×2 (11:19→17:00)
[2022-06-11] MEDS: VITAMIN B COMP W-C 1 EA TABLET (NEPHRO-VITE) GT SCH (11:19)
[2022-06-11] MEDS: CEFTAZIDIME PENTAHYDRATE 1 GM in DEXTROSE 5%-WATER - 50 ML IVPB SCH (17:00)
[2022-06-11] MEDS: CASPOFUNGIN ACETATE 50 MG in SODIUM CHLORIDE 250 ML IVPB SCH (17:31)
[2022-06-11] MEDS: ATORVASTATIN CA 40 MG TABLET (FP) GT SCH (21:33)
[2022-06-12] MEDS: ACETAMINOPHEN 650 MG/20.3 ML ORAL SOLUTION (CUPS) GT PRN (05:36)
[2022-06-12] MEDS: METOPROLOL TARTRATE 50 MG TABLET (FP) PEG SCH ×2 (10:26→21:37)
[2022-06-12] MEDS: AMINO ACIDS/PROTEIN HYDROLYS 30 ML LIQUID.PKT PO SCH ×2 (10:26→16:33)
[2022-06-12] MEDS: amLODIPine BESYLATE 5 MG TABLET (FP) GT SCH (10:26)
[2022-06-12] MEDS: VITAMIN B COMP W-C 1 EA TABLET (NEPHRO-VITE) GT SCH (10:26)
[2022-06-12 11:56] LABS: HEMATOCRIT 29.3 % (35.4-49); HEMOGLOBIN 9.3 GM/dL (11.7-16.9); MCH 27.6 pg (25.7-33.7); MCHC 31.8 g/dl (32.0-35.9); MEAN CELL VOLUME 86.8 fl (80-96); MEAN PLT VOLUME 9.1 fl (7.5-11.1); PLATELET COUNT 240 10^3/uL (134-434); RBC 3.37 M/mm3 (4.00-5.60); RDW 17.5 % (11.9-15.9); WHITE BLOOD COUNT 14.6 K/mm3 (4.0-10.0)
[2022-06-12 12:22] LABS: CHLORIDE 106 mmol/L (98-107); SODIUM 141 mmol/L (136-145)
[2022-06-12 12:26] LABS: ANION GAP 9 MMOL/L (8-16); CALCIUM 8.8 mg/dL (8.5-10.1); CO2 26 mmol/L (21-32); GLUCOSE,RANDOM 125 mg/dL (74-106)
[2022-06-12 12:28] LABS: CREATININE 2.7 mg/dL (0.55-1.3)
[2022-06-12 12:30] LABS: BLOOD UREA NITROGEN 114.7 mg/dL (7-18)
[2022-06-12] MEDS: SCOPOLAMINE HYDROBROMIDE 1 PATCH PATCH.TD72 TD SCH (14:21)
[2022-06-12] MEDS: CEFTAZIDIME PENTAHYDRATE 1 GM in DEXTROSE 5%-WATER - 50 ML IVPB SCH (16:29)
[2022-06-12] MEDS: CASPOFUNGIN ACETATE 50 MG in SODIUM CHLORIDE 250 ML IVPB SCH (18:05)
[2022-06-12] MEDS: ATORVASTATIN CA 40 MG TABLET (FP) GT SCH (21:36)
[2022-06-13] MEDS: METOPROLOL TARTRATE 50 MG TABLET (FP) PEG SCH ×2 (10:51→23:00)
[2022-06-13] MEDS: amLODIPine BESYLATE 5 MG TABLET (FP) GT SCH (10:51)
[2022-06-13] MEDS: VITAMIN B COMP W-C 1 EA TABLET (NEPHRO-VITE) GT SCH (10:51)
[2022-06-13] MEDS: AMINO ACIDS/PROTEIN HYDROLYS 30 ML LIQUID.PKT PO SCH ×2 (10:52→17:06)
[2022-06-13 11:13] LABS: BASO % 0.2 % (0-2.0); EOS % 0.4 % (0-4.5); HEMATOCRIT 32.3 % (35.4-49); HEMOGLOBIN 10.3 GM/dL (11.7-16.9); LYMPH % 6.2 % (8-40); MCH 27.8 pg (25.7-33.7); MCHC 31.9 g/dl (32.0-35.9); MEAN PLT VOLUME 9.2 fl (7.5-11.1); MONO % 2.5 % (3.8-10.2); NEUT % 90.7 % (42.8-82.8); PLATELET COUNT 289 10^3/uL (134-434); RBC 3.72 M/mm3 (4.00-5.60); RDW 17.7 % (11.9-15.9); WHITE BLOOD COUNT 16.8 K/mm3 (4.0-10.0)
[2022-06-13 11:32] LABS: CHLORIDE 104 mmol/L (98-107); SODIUM 138 mmol/L (136-145)
[2022-06-13 11:33] LABS: CALCIUM 9.1 mg/dL (8.5-10.1)
[2022-06-13 11:34] LABS: ANION GAP 11 MMOL/L (8-16); CO2 23 mmol/L (21-32); GLUCOSE,RANDOM 138 mg/dL (74-106)
[2022-06-13 11:38] LABS: CREATININE 3.1 mg/dL (0.55-1.3)
[2022-06-13] MEDS ORDERED: LIDOCAINE HCL 1%, 10 MG/ML (50 mL VIAL) SQ ONE (15:06)
[2022-06-13] MEDS ORDERED: LIDOCAINE HCL 1%, 10 MG/ML (20ML VIAL) ONE (15:10)
[2022-06-13] MEDS: CEFTAZIDIME PENTAHYDRATE 1 GM in DEXTROSE 5%-WATER - 50 ML IVPB SCH (16:20)
[2022-06-13] MEDS: CASPOFUNGIN ACETATE 50 MG in SODIUM CHLORIDE 250 ML IVPB SCH (17:01)
[2022-06-13] MEDS ORDERED: SODIUM CHLORIDE 250 ML IV PRN (18:13)
[2022-06-13] MEDS ORDERED: EPOETIN ALFA-EPBX 3,000 UNIT/ML VIAL SQ ONE (18:45)
[2022-06-13] MEDS: ATORVASTATIN CA 40 MG TABLET (FP) GT SCH (23:00)
[2022-06-14] MEDS ORDERED: VANCOMYCIN/WATER FOR INJ (PEG) 1,000 MG/200 ML BAG IVPB ONE (08:33)
[2022-06-14] MEDS: AMINO ACIDS/PROTEIN HYDROLYS 30 ML LIQUID.PKT PO SCH ×2 (09:45→18:50)
[2022-06-14] MEDS: METOPROLOL TARTRATE 50 MG TABLET (FP) PEG SCH ×2 (10:12→21:01)
[2022-06-14] MEDS: VITAMIN B COMP W-C 1 EA TABLET (NEPHRO-VITE) GT SCH (10:12)
[2022-06-14] MEDS: amLODIPine BESYLATE 5 MG TABLET (FP) GT SCH (10:12)
[2022-06-14] MEDS ORDERED: SODIUM CHLORIDE 250 ML IV PRN (10:31)
[2022-06-14 12:15] LABS: BASO % 0.3 % (0-2.0); EOS % 0.6 % (0-4.5); HEMATOCRIT 29.7 % (35.4-49); HEMOGLOBIN 9.7 GM/dL (11.7-16.9); LYMPH % 7.5 % (8-40); MCH 28.5 pg (25.7-33.7); MCHC 32.8 g/dl (32.0-35.9); MEAN CELL VOLUME 87.1 fl (80-96); MEAN PLT VOLUME 9.1 fl (7.5-11.1); MONO % 4.7 % (3.8-10.2); NEUT % 86.9 % (42.8-82.8); PLATELET COUNT 260 10^3/uL (134-434); RBC 3.41 M/mm3 (4.00-5.60); RDW 17.7 % (11.9-15.9); WHITE BLOOD COUNT 12.4 K/mm3 (4.0-10.0)
[2022-06-14 12:38] LABS: CALCIUM 8.6 mg/dL (8.5-10.1)
[2022-06-14 12:42] LABS: CREATININE 2.4 mg/dL (0.55-1.3)
[2022-06-14 12:43] LABS: BLOOD UREA NITROGEN 97.3 mg/dL (7-18)
[2022-06-14] MEDS: CEFTAZIDIME PENTAHYDRATE 1 GM in DEXTROSE 5%-WATER - 50 ML IVPB SCH (17:04)
[2022-06-14] MEDS: CASPOFUNGIN ACETATE 50 MG in SODIUM CHLORIDE 250 ML IVPB SCH (18:50)
[2022-06-14] MEDS: ATORVASTATIN CA 40 MG TABLET (FP) GT SCH (21:01)
[2022-06-15 09:33] LABS: HEMATOCRIT 29.1 % (35.4-49); HEMOGLOBIN 9.6 GM/dL (11.7-16.9); MCH 28.6 pg (25.7-33.7); MCHC 32.9 g/dl (32.0-35.9); MEAN PLT VOLUME 8.9 fl (7.5-11.1); PLATELET COUNT 242 10^3/uL (134-434); RBC 3.35 M/mm3 (4.00-5.60)
[2022-06-15 10:08] LABS: CREATININE 1.7 mg/dL (0.55-1.3)
[2022-06-15 10:12] LABS: CALCIUM 8.8 mg/dL (8.5-10.1)
[2022-06-15 10:20] LABS: BLOOD UREA NITROGEN 62.2 mg/dL (7-18)
[2022-06-15] MEDS: AMINO ACIDS/PROTEIN HYDROLYS 30 ML LIQUID.PKT PO SCH ×2 (10:59→16:42)
[2022-06-15] MEDS: METOPROLOL TARTRATE 50 MG TABLET (FP) PEG SCH ×2 (11:00→21:05)
[2022-06-15] MEDS: amLODIPine BESYLATE 5 MG TABLET (FP) GT SCH (11:00)
[2022-06-15] MEDS: VITAMIN B COMP W-C 1 EA TABLET (NEPHRO-VITE) GT SCH (11:00)
[2022-06-15] MEDS: SCOPOLAMINE HYDROBROMIDE 1 PATCH PATCH.TD72 TD SCH (15:56)
[2022-06-15] MEDS: CEFTAZIDIME PENTAHYDRATE 1 GM in DEXTROSE 5%-WATER - 50 ML IVPB SCH (16:42)
[2022-06-15] MEDS: CASPOFUNGIN ACETATE 50 MG in SODIUM CHLORIDE 250 ML IVPB SCH (17:43)
[2022-06-15] MEDS: HEPARIN NA (PORCINE) 5,000 UNITS/ML 1ML VIAL SQ SCH (21:04)
[2022-06-15] MEDS: ATORVASTATIN CA 40 MG TABLET (FP) GT SCH (21:05)
[2022-06-16] MEDS: AMINO ACIDS/PROTEIN HYDROLYS 30 ML LIQUID.PKT PO SCH ×2 (09:05→18:01)
[2022-06-16] MEDS: VITAMIN B COMP W-C 1 EA TABLET (NEPHRO-VITE) GT SCH (09:05)
[2022-06-16] MEDS: amLODIPine BESYLATE 5 MG TABLET (FP) GT SCH (09:05)
[2022-06-16] MEDS: HEPARIN NA (PORCINE) 5,000 UNITS/ML 1ML VIAL SQ SCH ×2 (09:05→22:05)
[2022-06-16] MEDS: METOPROLOL TARTRATE 50 MG TABLET (FP) PEG SCH ×2 (09:06→22:05)
[2022-06-16 10:16] LABS: BASO % 0.5 % (0-2.0); EOS % 1.1 % (0-4.5); HEMATOCRIT 29.6 % (35.4-49); HEMOGLOBIN 9.7 GM/dL (11.7-16.9); LYMPH % 9.9 % (8-40); MCH 28.2 pg (25.7-33.7); MCHC 32.7 g/dl (32.0-35.9); MEAN CELL VOLUME 86.3 fl (80-96); MEAN PLT VOLUME 9.3 fl (7.5-11.1); MONO % 4.6 % (3.8-10.2); NEUT % 83.9 % (42.8-82.8); PLATELET COUNT 280 10^3/uL (134-434); RBC 3.43 M/mm3 (4.00-5.60); RDW 17.6 % (11.9-15.9); WHITE BLOOD COUNT 13.8 K/mm3 (4.0-10.0)
[2022-06-16 10:38] LABS: CALCIUM 8.8 mg/dL (8.5-10.1)
[2022-06-16 10:42] LABS: CREATININE 2.2 mg/dL (0.55-1.3); PHOSPHOROUS 6.5 mg/dL (2.5-4.9)
[2022-06-16 11:04] LABS: BLOOD UREA NITROGEN 87.6 mg/dL (7-18)
[2022-06-16] MEDS: CASPOFUNGIN ACETATE 50 MG in SODIUM CHLORIDE 250 ML IVPB SCH (18:00)
[2022-06-16] MEDS: CEFTAZIDIME PENTAHYDRATE 1 GM in DEXTROSE 5%-WATER - 50 ML IVPB SCH (18:00)
[2022-06-16] MEDS: ATORVASTATIN CA 40 MG TABLET (FP) GT SCH (22:05)
[2022-06-17] MEDS: AMINO ACIDS/PROTEIN HYDROLYS 30 ML LIQUID.PKT PO SCH (08:41)
[2022-06-17] MEDS: amLODIPine BESYLATE 5 MG TABLET (FP) GT SCH (10:25)
[2022-06-17] MEDS: HEPARIN NA (PORCINE) 5,000 UNITS/ML 1ML VIAL SQ SCH ×2 (10:25→21:41)
[2022-06-17] MEDS: METOPROLOL TARTRATE 50 MG TABLET (FP) PEG SCH ×2 (10:25→21:40)
[2022-06-17] MEDS: VITAMIN B COMP W-C 1 EA TABLET (NEPHRO-VITE) GT SCH (10:25)
[2022-06-17] MEDS: CEFTAZIDIME PENTAHYDRATE 1 GM in DEXTROSE 5%-WATER - 50 ML IVPB SCH (16:19)
[2022-06-17] MEDS: CASPOFUNGIN ACETATE 50 MG in SODIUM CHLORIDE 250 ML IVPB SCH (16:19)
[2022-06-17] MEDS: AMINO ACIDS/PROTEIN HYDROLYS 30 ML LIQUID.PKT GT SCH (16:55)
[2022-06-17] MEDS: ATORVASTATIN CA 40 MG TABLET (FP) GT SCH (21:40)
[2022-06-17] MEDS ORDERED: SODIUM CHLORIDE 250 ML IV PRN (22:11)
[2022-06-18] MEDS: AMINO ACIDS/PROTEIN HYDROLYS 30 ML LIQUID.PKT GT SCH ×2 (08:59→18:29)
[2022-06-18] MEDS: HEPARIN NA (PORCINE) 5,000 UNITS/ML 1ML VIAL SQ SCH ×2 (09:57→21:49)
[2022-06-18] MEDS: VITAMIN B COMP W-C 1 EA TABLET (NEPHRO-VITE) GT SCH (09:57)
[2022-06-18] MEDS: amLODIPine BESYLATE 5 MG TABLET (FP) GT SCH (09:57)
[2022-06-18] MEDS: METOPROLOL TARTRATE 50 MG TABLET (FP) PEG SCH ×2 (09:57→21:49)
[2022-06-18] MEDS ORDERED: amLODIPine BESYLATE 5 MG TABLET (FP) GT ONE (12:00)
[2022-06-18 13:13] LABS: CHLORIDE 99 mmol/L (98-107); SODIUM 137 mmol/L (136-145)
[2022-06-18 13:15] LABS: CALCIUM 9.2 mg/dL (8.5-10.1)
[2022-06-18 13:16] LABS: ALBUMIN 1.2 g/dl (3.4-5.0); ANION GAP 13 MMOL/L (8-16); CO2 25 mmol/L (21-32); GLUCOSE,RANDOM 165 mg/dL (74-106)
[2022-06-18 13:19] LABS: CREATININE 3.2 mg/dL (0.55-1.3); SGOT/AST 97 U/L (15-37); SGPT/ALT 283 U/L (13-61)
[2022-06-18 13:20] LABS: BILIRUBIN,TOTAL 0.3 mg/dL (0.2-1)
[2022-06-18 13:21] LABS: TOT PROT 6.1 g/dl (6.4-8.2)
[2022-06-18 13:22] LABS: ALK PHOS 449 U/L (45-117)
[2022-06-18 13:23] LABS: BLOOD UREA NITROGEN 129.6 mg/dL (7-18)
[2022-06-18] MEDS: SCOPOLAMINE HYDROBROMIDE 1 PATCH PATCH.TD72 TD SCH (15:12)
[2022-06-18] MEDS: CEFTAZIDIME PENTAHYDRATE 1 GM in DEXTROSE 5%-WATER - 50 ML IVPB SCH (18:28)
[2022-06-18] MEDS: CASPOFUNGIN ACETATE 50 MG in SODIUM CHLORIDE 250 ML IVPB SCH (18:29)
[2022-06-18] MEDS: ATORVASTATIN CA 40 MG TABLET (FP) GT SCH (21:49)
[2022-06-19] MEDS: AMINO ACIDS/PROTEIN HYDROLYS 30 ML LIQUID.PKT GT SCH ×2 (09:41→17:36)
[2022-06-19] MEDS: HEPARIN NA (PORCINE) 5,000 UNITS/ML 1ML VIAL SQ SCH ×2 (09:41→21:33)
[2022-06-19] MEDS: VITAMIN B COMP W-C 1 EA TABLET (NEPHRO-VITE) GT SCH (09:41)
[2022-06-19] MEDS: amLODIPine BESYLATE 5 MG TABLET (FP) GT SCH (09:42)
[2022-06-19] MEDS: METOPROLOL TARTRATE 50 MG TABLET (FP) PEG SCH ×2 (09:42→21:34)
[2022-06-19] MEDS: AMINO ACIDS 4.25%/D5W 1,000 ML IV SCH (14:32)
[2022-06-19] MEDS: CASPOFUNGIN ACETATE 50 MG in SODIUM CHLORIDE 250 ML IVPB SCH (17:36)
[2022-06-19] MEDS: ATORVASTATIN CA 40 MG TABLET (FP) GT SCH (21:34)
[2022-06-20 08:41] LABS: BASO % 0.4 % (0-2.0); HEMATOCRIT 25.7 % (35.4-49); HEMOGLOBIN 8.5 GM/dL (11.7-16.9); LYMPH % 8.4 % (8-40); MCH 28.6 pg (25.7-33.7); MEAN CELL VOLUME 86.7 fl (80-96); MEAN PLT VOLUME 8.4 fl (7.5-11.1); MONO % 5.4 % (3.8-10.2); NEUT % 84.8 % (42.8-82.8); PLATELET COUNT 213 10^3/uL (134-434); RBC 2.96 M/mm3 (4.00-5.60); RDW 18.2 % (11.9-15.9)
[2022-06-20 09:32] LABS: CALCIUM 8.3 mg/dL (8.5-10.1)
[2022-06-20 09:36] LABS: CREATININE 2.7 mg/dL (0.55-1.3)
[2022-06-20 10:06] LABS: BLOOD UREA NITROGEN 102.3 mg/dL (7-18)
[2022-06-20] MEDS ORDERED: SODIUM CHLORIDE 250 ML IV PRN (10:13)
[2022-06-20] MEDS: HEPARIN NA (PORCINE) 5,000 UNITS/ML 1ML VIAL SQ SCH ×2 (11:33→21:24)
[2022-06-20] MEDS: amLODIPine BESYLATE 5 MG TABLET (FP) GT SCH (11:33)
[2022-06-20] MEDS: VITAMIN B COMP W-C 1 EA TABLET (NEPHRO-VITE) GT SCH (11:33)
[2022-06-20] MEDS: METOPROLOL TARTRATE 50 MG TABLET (FP) PEG SCH ×2 (11:33→21:24)
[2022-06-20] MEDS: AMINO ACIDS/PROTEIN HYDROLYS 30 ML LIQUID.PKT GT SCH ×2 (11:33→17:57)
[2022-06-20] MEDS ORDERED: EPOETIN ALFA-EPBX 4,000 UNIT/ML VIAL SQ ONE (12:15)
[2022-06-20] MEDS: AMINO ACIDS 4.25%/D5W 1,000 ML IV SCH ×2 (17:57→19:45)
[2022-06-20] MEDS: CASPOFUNGIN ACETATE 50 MG in SODIUM CHLORIDE 250 ML IVPB SCH (17:58)
[2022-06-20] MEDS: ATORVASTATIN CA 40 MG TABLET (FP) GT SCH (21:24)
[2022-06-21] MEDS ORDERED: EPOETIN ALFA-EPBX 4,000 UNIT/ML VIAL IVPUSH ONE (08:00)
[2022-06-21] MEDS: amLODIPine BESYLATE 5 MG TABLET (FP) GT SCH (09:37)
[2022-06-21] MEDS: METOPROLOL TARTRATE 50 MG TABLET (FP) PEG SCH ×2 (09:37→22:31)
[2022-06-21] MEDS: VITAMIN B COMP W-C 1 EA TABLET (NEPHRO-VITE) GT SCH (09:37)
[2022-06-21] MEDS: AMINO ACIDS/PROTEIN HYDROLYS 30 ML LIQUID.PKT GT SCH ×2 (09:37→17:02)
[2022-06-21] MEDS: HEPARIN NA (PORCINE) 5,000 UNITS/ML 1ML VIAL SQ SCH ×2 (09:57→22:29)
[2022-06-21 11:45] LABS: HEMATOCRIT 26.4 % (35.4-49); HEMOGLOBIN 8.5 GM/dL (11.7-16.9); MCH 28.3 pg (25.7-33.7); MEAN CELL VOLUME 88.5 fl (80-96); MEAN PLT VOLUME 8.4 fl (7.5-11.1); PLATELET COUNT 219 10^3/uL (134-434); RBC 2.99 M/mm3 (4.00-5.60); RDW 18.5 % (11.9-15.9); WHITE BLOOD COUNT 15.1 K/mm3 (4.0-10.0)
[2022-06-21] MEDS ORDERED: SODIUM CHLORIDE 250 ML IV PRN (15:18)
[2022-06-21] MEDS: SCOPOLAMINE HYDROBROMIDE 1 PATCH PATCH.TD72 TD SCH (15:28)
[2022-06-21] MEDS: CASPOFUNGIN ACETATE 50 MG in SODIUM CHLORIDE 250 ML IVPB SCH (17:02)
[2022-06-21 18:02] LABS: CALCIUM 8.4 mg/dL (8.5-10.1)
[2022-06-21] MEDS: AMINO ACIDS 4.25%/D5W 1,000 ML IV SCH (18:14)
[2022-06-21] MEDS: ATORVASTATIN CA 40 MG TABLET (FP) GT SCH (22:30)
[2022-06-22] MEDS ORDERED: EPOETIN ALFA-EPBX 4,000 UNIT/ML VIAL IVPUSH ONE (08:30)
[2022-06-22] MEDS: HEPARIN NA (PORCINE) 5,000 UNITS/ML 1ML VIAL SQ SCH (12:12)
[2022-06-22] MEDS: AMINO ACIDS/PROTEIN HYDROLYS 30 ML LIQUID.PKT GT SCH ×2 (12:14→16:52)
[2022-06-22] MEDS: METOPROLOL TARTRATE 50 MG TABLET (FP) PEG SCH ×2 (12:15→22:31)
[2022-06-22] MEDS: amLODIPine BESYLATE 5 MG TABLET (FP) GT SCH (12:15)
[2022-06-22] MEDS: VITAMIN B COMP W-C 1 EA TABLET (NEPHRO-VITE) GT SCH (12:15)
[2022-06-22] MEDS: ATORVASTATIN CA 40 MG TABLET (FP) GT SCH (22:31)
[2022-06-23] MEDS: VITAMIN B COMP W-C 1 EA TABLET (NEPHRO-VITE) GT SCH (10:47)
[2022-06-23] MEDS: METOPROLOL TARTRATE 50 MG TABLET (FP) PEG SCH ×2 (10:47→22:45)
[2022-06-23] MEDS: AMINO ACIDS/PROTEIN HYDROLYS 30 ML LIQUID.PKT GT SCH ×3 (10:47→18:39)
[2022-06-23] MEDS: amLODIPine BESYLATE 5 MG TABLET (FP) GT SCH (10:47)
[2022-06-23] MEDS: ATORVASTATIN CA 40 MG TABLET (FP) GT SCH (22:45)
[2022-06-24] MEDS: AMINO ACIDS/PROTEIN HYDROLYS 30 ML LIQUID.PKT GT SCH ×3 (10:19→17:22)
[2022-06-24] MEDS: amLODIPine BESYLATE 5 MG TABLET (FP) GT SCH (10:20)
[2022-06-24] MEDS: VITAMIN B COMP W-C 1 EA TABLET (NEPHRO-VITE) GT SCH (10:20)
[2022-06-24] MEDS: METOPROLOL TARTRATE 50 MG TABLET (FP) PEG SCH ×2 (10:20→21:40)
[2022-06-24] MEDS: SCOPOLAMINE HYDROBROMIDE 1 PATCH PATCH.TD72 TD SCH (17:13)
[2022-06-24] MEDS: ACETAMINOPHEN 650 MG/20.3 ML ORAL SOLUTION (CUPS) GT PRN (21:40)
[2022-06-24] MEDS: ATORVASTATIN CA 40 MG TABLET (FP) GT SCH (21:40)
[2022-06-25] MEDS: VITAMIN B COMP W-C 1 EA TABLET (NEPHRO-VITE) GT SCH (09:25)
[2022-06-25] MEDS: AMINO ACIDS/PROTEIN HYDROLYS 30 ML LIQUID.PKT GT SCH ×3 (09:25→16:55)
[2022-06-25] MEDS: METOPROLOL TARTRATE 50 MG TABLET (FP) PEG SCH ×2 (09:25→21:31)
[2022-06-25] MEDS: amLODIPine BESYLATE 5 MG TABLET (FP) GT SCH (09:25)
[2022-06-25 09:26] LABS: BASO % 0.3 % (0-2.0); EOS % 3.2 % (0-4.5); HEMATOCRIT 25.4 % (35.4-49); HEMOGLOBIN 8.7 GM/dL (11.7-16.9); LYMPH % 7.1 % (8-40); MCH 30.3 pg (25.7-33.7); MCHC 34.4 g/dl (32.0-35.9); MEAN CELL VOLUME 88.2 fl (80-96); MEAN PLT VOLUME 8.7 fl (7.5-11.1); NEUT % 84.4 % (42.8-82.8); PLATELET COUNT 202 10^3/uL (134-434); RBC 2.87 M/mm3 (4.00-5.60); RDW 18.9 % (11.9-15.9); WHITE BLOOD COUNT 13.6 K/mm3 (4.0-10.0)
[2022-06-25 09:43] LABS: CHLORIDE 97 mmol/L (98-107); SODIUM 135 mmol/L (136-145)
[2022-06-25 09:48] LABS: ALBUMIN 1.2 g/dl (3.4-5.0); CALCIUM 8.6 mg/dL (8.5-10.1); CO2 27 mmol/L (21-32); GLUCOSE,RANDOM 125 mg/dL (74-106)
[2022-06-25 09:53] LABS: CREATININE 2.9 mg/dL (0.55-1.3); SGOT/AST 430 U/L (15-37); SGPT/ALT 455 U/L (13-61)
[2022-06-25 09:54] LABS: BILIRUBIN,TOTAL 1.1 mg/dL (0.2-1); TOT PROT 5.9 g/dl (6.4-8.2)
[2022-06-25 10:37] LABS: ALK PHOS 395 U/L (45-117); ANION GAP 12 MMOL/L (8-16); BLOOD UREA NITROGEN 117.4 mg/dL (7-18)
[2022-06-25 11:12] LABS: CHLORIDE 97 mmol/L (98-107); SODIUM 135 mmol/L (136-145)
[2022-06-25 11:14] LABS: ANION GAP 13 MMOL/L (8-16); CALCIUM 8.3 mg/dL (8.5-10.1); CO2 25 mmol/L (21-32); GLUCOSE,RANDOM 120 mg/dL (74-106)
[2022-06-25 11:18] LABS: CREATININE 2.9 mg/dL (0.55-1.3)
[2022-06-25] MEDS ORDERED: POTASSIUM CHLORIDE ORAL LIQUID 20 MEQ/15 ML PO ONE ×2 (11:40)
[2022-06-25 11:42] LABS: BLOOD UREA NITROGEN 116.6 mg/dL (7-18)
[2022-06-25] MEDS ORDERED: SODIUM CHLORIDE 250 ML IV PRN (14:47)
[2022-06-25] MEDS: ATORVASTATIN CA 40 MG TABLET (FP) GT SCH (21:31)
[2022-06-26 08:55] LABS: BASO % 0.3 % (0-2.0); HEMATOCRIT 28.2 % (35.4-49); HEMOGLOBIN 9.3 GM/dL (11.7-16.9); LYMPH % 5.7 % (8-40); MCH 29.1 pg (25.7-33.7); MCHC 32.9 g/dl (32.0-35.9); MEAN CELL VOLUME 88.4 fl (80-96); MEAN PLT VOLUME 8.3 fl (7.5-11.1); MONO % 5.4 % (3.8-10.2); NEUT % 86.6 % (42.8-82.8); PLATELET COUNT 237 10^3/uL (134-434); RDW 18.9 % (11.9-15.9); WHITE BLOOD COUNT 18.4 K/mm3 (4.0-10.0)
[2022-06-26 08:59] LABS: CHLORIDE 95 mmol/L (98-107); SODIUM 130 mmol/L (136-145)
[2022-06-26 09:08] LABS: ANION GAP 10 MMOL/L (8-16); CALCIUM 8.8 mg/dL (8.5-10.1); CO2 24 mmol/L (21-32); GLUCOSE,RANDOM 121 mg/dL (74-106)
[2022-06-26 09:11] LABS: CREATININE 3.2 mg/dL (0.55-1.3)
[2022-06-26 09:15] LABS: BLOOD UREA NITROGEN 134.6 mg/dL (7-18)
[2022-06-26] MEDS: amLODIPine BESYLATE 5 MG TABLET (FP) GT SCH (10:54)
[2022-06-26] MEDS: VITAMIN B COMP W-C 1 EA TABLET (NEPHRO-VITE) GT SCH (10:54)
[2022-06-26] MEDS: AMINO ACIDS/PROTEIN HYDROLYS 30 ML LIQUID.PKT GT SCH ×2 (10:55→19:07)
[2022-06-26] MEDS: METOPROLOL TARTRATE 50 MG TABLET (FP) PEG SCH ×2 (10:55→21:27)
[2022-06-26 17:46] LABS: CHOLESTEROL 54 mg/dL (50-200)
[2022-06-26 17:47] LABS: LDL CHOLESTEROL (ONLY SJRH) 27 mg/dL (5-100)
[2022-06-26 17:49] LABS: HDL CHOLESTEROL 27 mg/dL (40-60)
[2022-06-26] MEDS: ACETAMINOPHEN 650 MG/20.3 ML ORAL SOLUTION (CUPS) GT PRN (19:04)
[2022-06-26] MEDS: ATORVASTATIN CA 40 MG TABLET (FP) GT SCH (21:26)
[2022-06-27 09:19] LABS: BASO % 0.3 % (0-2.0); EOS % 2.1 % (0-4.5); HEMATOCRIT 24.5 % (35.4-49); HEMOGLOBIN 8.2 GM/dL (11.7-16.9); LYMPH % 7.7 % (8-40); MCH 29.6 pg (25.7-33.7); MCHC 33.6 g/dl (32.0-35.9); MEAN CELL VOLUME 88.1 fl (80-96); MONO % 7.4 % (3.8-10.2); NEUT % 82.5 % (42.8-82.8); PLATELET COUNT 154 10^3/uL (134-434); RBC 2.78 M/mm3 (4.00-5.60); RDW 19.5 % (11.9-15.9); WHITE BLOOD COUNT 13.1 K/mm3 (4.0-10.0)
[2022-06-27 09:44] LABS: CALCIUM 8.9 mg/dL (8.5-10.1)
[2022-06-27 09:48] LABS: CREATININE 2.2 mg/dL (0.55-1.3)
[2022-06-27 09:58] LABS: BLOOD UREA NITROGEN 82.8 mg/dL (7-18)
[2022-06-27] MEDS: VITAMIN B COMP W-C 1 EA TABLET (NEPHRO-VITE) GT SCH (10:44)
[2022-06-27] MEDS: METOPROLOL TARTRATE 50 MG TABLET (FP) PEG SCH ×2 (10:44→21:18)
[2022-06-27] MEDS: amLODIPine BESYLATE 5 MG TABLET (FP) GT SCH (10:44)
[2022-06-27] MEDS: AMINO ACIDS/PROTEIN HYDROLYS 30 ML LIQUID.PKT GT SCH ×3 (10:44→18:04)
[2022-06-27] MEDS: SCOPOLAMINE HYDROBROMIDE 1 PATCH PATCH.TD72 TD SCH (14:10)
[2022-06-27] MEDS: ATORVASTATIN CA 40 MG TABLET (FP) GT SCH (21:18)
[2022-06-28] MEDS: VITAMIN B COMP W-C 1 EA TABLET (NEPHRO-VITE) GT SCH (10:21)
[2022-06-28] MEDS: AMINO ACIDS/PROTEIN HYDROLYS 30 ML LIQUID.PKT GT SCH ×2 (10:21→17:06)
[2022-06-28] MEDS: amLODIPine BESYLATE 5 MG TABLET (FP) GT SCH (10:21)
[2022-06-28] MEDS: METOPROLOL TARTRATE 50 MG TABLET (FP) PEG SCH (10:21)
[2022-06-28] MEDS ORDERED: ONDANSETRON 4 MG/2 ML VIAL IVPUSH PRN (16:47)
[2022-06-29] MEDS: MORPHINE SULFATE/0.9% NACL/PF 100 MG/100 ML BAG IVPB SCH (15:17)
[2022-06-30] MEDS: SCOPOLAMINE HYDROBROMIDE 1 PATCH PATCH.TD72 TD SCH (13:29)
[2022-06-30] MEDS: MORPHINE SULFATE/0.9% NACL/PF 100 MG/100 ML BAG IVPB SCH (19:07)
[2022-07-01] MEDS: MORPHINE SULFATE/0.9% NACL/PF 100 MG/100 ML BAG IVPB SCH (06:43)
[2022-07-01 19:18] VITALS: BP 116/63; RESP 16; TEMP 97.2
[2022-07-01 20:59] VITALS: PULSE 83
== END 2022-07-02 00:50 | disposition expired | DRG 870 ==
LOC: JER 05:03 → JERBED 09:18 → J5S 05-26 19:46
PROVIDERS: ADMIT Internal Medicine; ATTEND Internal Medicine
PROC: 5A1955Z Respiratory Ventilation, Greater than 96 Consecutive Hours (ICD-10-PCS; principal; 2022-05-25)
PROC: 5A1D70Z Performance of Urinary Filtration, Intermittent, Less than 6 Hours Per Day (ICD-10-PCS; 2022-05-25)
PROC: 5A1D70Z Performance of Urinary Filtration, Intermittent, Less than 6 Hours Per Day (ICD-10-PCS; 2022-05-27)
PROC: 5A1D70Z Performance of Urinary Filtration, Intermittent, Less than 6 Hours Per Day (ICD-10-PCS; 2022-06-01)
PROC: 06HM33Z Insertion of Infusion Device into Right Femoral Vein, Percutaneous Approach (ICD-10-PCS; 2022-06-13)
PROC: B54BZZA Ultrasonography of Right Lower Extremity Veins, Guidance (ICD-10-PCS; 2022-06-13)
DX: A41.9 Sepsis, unspecified organism (principal); E43 Unspecified severe protein-calorie malnutrition; L89.154 Pressure ulcer of sacral region, stage 4; J96.21 Acute and chronic respiratory failure with hypoxia; J18.9 Pneumonia, unspecified organism; N18.6 End stage renal disease; R65.21 Severe sepsis with septic shock; R53.2 Functional quadriplegia; Z99.11 Dependence on respirator [ventilator] status; Z68.1 Body mass index [BMI] 19.9 or less, adult; I12.0 Hypertensive chronic kidney disease with stage 5 chronic kidney disease or end stage renal disease; R64 Cachexia; N39.0 Urinary tract infection, site not specified; J98.11 Atelectasis; B49 Unspecified mycosis; F01.50 Vascular dementia, unspecified severity, without behavioral disturbance, psychotic disturbance, mood disturbance, and anxiety; Z86.16 Personal history of COVID-19; Z86.73 Personal history of transient ischemic attack (TIA), and cerebral infarction without residual deficits; Z99.2 Dependence on renal dialysis; R74.01 Elevation of levels of liver transaminase levels; Z93.0 Tracheostomy status; R79.89 Other specified abnormal findings of blood chemistry; E86.0 Dehydration; D64.9 Anemia, unspecified; E87.6 Hypokalemia; R62.7 Adult failure to thrive; E87.5 Hyperkalemia; E78.5 Hyperlipidemia, unspecified; R19.7 Diarrhea, unspecified
CPT/HCPCS: 0241U-QW; 36415; 36430; 71045-TC-FY; 71250-TC; 73130-TC-LT-FY; 74018-TC-FY; 74176-TC; 80048; 80053; 80061; 81003; 82550; 82553; 82803; 83036; 83605; 83735; 83880; 84100; 84132; 84443; 84484; 85025; 85027; 85610; 85730; 86803; 86850; 86900; 86901; 86922; 87040; 87070; 87086; 87106; 87186; 87205; 87324; 87340; 87449; 93005; 93010; 94002; 99285-25; C9803-CS; G0480; J0637; J1644; P9058; Q5106; U0003; U0005